=== PATIENT | male | born 1970 | race Caucasian/White ===

== ENCOUNTER 2019-01-31 10:37 | Outpatient (CLI) | payer MEDICARE ==
[~2019-01-31] VITALS: Ht 172.7 cm; Wt 111.4 kg
--- NOTE | ~2019-01-31 | HEMODYNAMI ---
PATIENT:ALBERTO ALLAN MEDICAL RECORD: [id number] : 72 LOCATION:[facility] ADMISSION DATE: 01/31/19 Generatedon:01/31/201913:25 Patient name: ALBERTO ALLAN Patient #: [id number] SSN: DO B: 1970 Date of study: 01/31/2019 Page: Of Hemodynamic Procedure Report Patient Data Patient Demographics Procedure consent was obtained First Name: ALBERTO Gender: Male Last Name: JERRELL : 1970 Middle Initial: R Age: 48 year(s) Patient #: [id number] Race: Additional ID: [id number] Contact details Address: [address] [place] [address] [place]: [place] City: [place] Zip code: [address] Past Medical History Allergies: No known allergies Admission Admission Data Admission Date: 01/31/2019 Admission Time: 10:37 Procedure Procedure Types Cath Procedure Diagnostic Procedure C LH w/Coronaries PCI Procedure Coronary Stent Coronary Stent Initial Procedure Description Procedure Date Procedure Date: 01/31/2019 Procedure Start Time: 12:58 Procedure End Time: 13:24 Procedure Staff Name Function Rios Appiah MD Performing Physician Shira López RN Paint Spraying Machine Operator Helper Graham Santo RN Paint Spraying Machine Operator Helper Marily Oliva RT Scrub Tal Valles RT Monitor Procedure Data Cath Procedure Fluoroscopy Diagnostic fluoroscopy Total fluoroscopy Time: 8.1 time: 8.1 min min Diagnostic fluoroscopy Total fluoroscopy dose: dose: 1311 mGy 1311 mGy Contrast Material Contrast Material Type Amount (ml) Isovue 300 122 Entry Location Entry Primary Successful Side Size Upsize Upsize Entry Closure Adler ccessful Closure Location (Fr) 1 (Fr) 2 (Fr) Remarks Device Remarks Radial Right 6 Fr Mechanical artery Short Compression Procedure Complications No complications Procedure Medications Medication Administration Route Dosage 0.9% NaCl I.V. 100 ml/hr Oxygen etCO2 Nasal cannula 2 l/min Lidocaine 2% added to field 20 Heparin Flush Bag added to field 2 bags (1000units/500ml NS) Radial Cocktail added to field 1 syringe (Verapomil 2mg/Nitro 400mcg/Heparin 1500units) Versed I.V. 2 mg Fentanyl I.V. 50 mcg Fentanyl I.V. 50 mcg Heparin Bolus I.V. 5000 units Integrilin (Bolus I.V. 10.2 ml 2mg/ml) Versed I.V. 2 mg Plavix P.O. 600 mg Hemodynamics Rest Heart Rate: 79 (bpm) Pressure Samples Time Site Value (mmHg) Purpose Heart Use Rate(bpm) 13:01 LV 76/9,76 EDP 85 13:02 AO 93/72(82) Pullback 82 13:02 LV 90/-4,7 Pullback 82 Gradients Valve Time Site 1 Site 2 Mean SEP/DFP Peak To Heart Use (mmHg) (sec/min) Peak Rate (mmHg) (bpm) Aortic 13:02 LV AO 0 6 0 82 90/-4,7 93/72(82) Calculations Valve P-P Mean Valve Index Valve Source Name Gradient Area Flow (cm2) Aortic 0 0 0 0 Snapshots Pre Cath Intra NCS Post Cath Vital Signs Time Heart Resp SPO2 etCO2 NIBP (mmHg) Rhythm Pain Sedation Rate (ipm) (%) (mmHg) Status Level (bpm) 12:48:31 77 17 100 22.5 126/93(103) NSR 0 (11) 10(A) , No pain 12:52:49 76 18 99 36.8 127/92(103) NSR 0 (11) 10(A) , No pain 12:57:07 79 17 98 28.5 110/89(96) NSR 0 (11) 10(A) , No pain 13:01:25 80 17 99 31.5 122/68(106) NSR 0 (11) 10(A) , No pain 13:05:42 80 16 98 40.5 114/73(85) NSR 0 (11) 10(A) , No pain 13:09:55 75 13 98 43.5 114/66(85) NSR 0 (11) 10(A) , No pain 13:14:13 76 13 97 21.7 120/70(84) NSR 0 (11) 9(A) , No pain 13:18:29 72 19 100 35.2 123/87(107) NSR 0 (11) 10(A) , No pain 13:22:46 69 22 99 23.2 132/91(109) NSR 0 (11) 10(A) , No pain Medications Time Medication Route Dose Verified Delivered Reason Not es Effectiveness by by 12:47:35 0.9% NaCl I.V. 100 Rios Shira used for ml/hr [place] Rene procedure MD CHILEL 12:47:43 Oxygen etCO2 2 l/min Iros Shira used for Nasal [place] Rene procedure cannula MD CHILEL 12:48:39 Lidocaine 2% added 20ml Rios Nation for local to vial [facility] anesthetic field MD SYKES 12:48:43 Heparin Flush added 2 bags Rios Rios used for Bag to [facility] procedure (1000units/500ml field MD SYKES NS) 12:53:11 Versed I.V. 2 mg Rios Shira for sedation St Shiva López MD, RN 12:53:26 Fentanyl I.V. 50 mcg Rios Shira for sedation St Shiva López MD, RN 12:54:07 Radial Cocktail added 1 Rios Rios used for (Verapomil to syringe [facility] procedure 2mg/Nitro field MD SYKES 400mcg/Heparin 1500units) 12:59:39 Fentanyl I.V. 50 mcg Rios Shira for sedation St Shiva López MD, RN 13:08:39 Heparin Bolus I.V. 5000 Rios Shira for julisa ified units [facility] anticoagulation with Dr. SYKES RN [facility] 13:09:56 Integrilin I.V. 10.2 ml Rios Shira for was lorena (Bolus 2mg/ml) St Shiva López antiplatelet 9.8mL MD CHILEL therapy 13:11:23 Versed I.V. 2 mg Rios Shira for sedation St Shiva López MD, RN 13:14:16 Plavix P.O. 600 [address] for St Shiva López antiplatelet MD CHILEL therapy Procedure Log Time Note 12:34:09 Graham Santo RN sent for patient. Start room use. 12:34:30 Time tracking: Regular hours (M-F 7:00 - 5:00) 12:34:34 Plan of Care:Hemodynamics will remain stable., Cardiac rhythm will remain stable., Comfort level will be maintained., Respiratory function will remain adequate., Patient/ family verbilizes understanding of procedure., Procedure tolerated without complication., Recovers from procedure without complications.. 12:41:13 Patient received from Pre/Post Procedure Room to CCL 1 Alert and oriented. Tansferred to table in Supine position. 12:41:14 Warm blankets applied, and mariano hugger turned on for patient comfort. 12:41:15 Correct patient and procedure confirmed by team. 12:41:16 Signed procedure consent form obtained from patient. 12:41:17 ECG and BP/O2 sat monitors applied to patient. 12:41:18 Full Disclosure recording started 12:47:19 Vital chart was started 12:47:35 0.9% NaCl 100 ml/hr I.V. was administered by Shira López RN; used for procedure; 12:47:43 Oxygen 2 l/min etCO2 Nasal cannula was administered by Shira López RN; used for procedure; 12:48:26 Baseline sample Acquired. 12:48:39 Lidocaine 2% 20ml vial added to field was administered by Rios Appiah MD; for local anesthetic; 12:48:43 Heparin Flush Bag (1000units/500ml NS) 2 bags added to field was administered by Rios Appiah MD; used for procedure; 12:50:39 Rhythm: sinus rhythm 12:50:53 H&P Date Dictated: 01/17/2019 Within 30 days and on chart., H&P Addendum completed by physician on day of procedure. (MUST COMPLETE FOR ALL OUTPATIENTS). 12:50:55 Pre-procedure instructions explained to patient. 12:50:55 Pre-op teaching completed and patient verbalized understanding. 12:50:57 Family in waiting room. 12:50:59 Patient NPO since Midnight. 12:51:05 Patient allergic to No known allergies 12:51:08 Is the patient allergic to Iodine/contrast media? No. 12:51:13 Is patient on blood thinner?No 12:51:14 Patient diabetic? Yes. 12:51:16 If diabetic: On Metformin? Yes 12:51:20 If on Metformin: Last Dose? 01/30/2019 12:51:24 ----Pre-sedation anethsthesia assessment.---- 12:51:26 Previous problem with sedation/anesthesia? No ? 12:51:28 Snore? Yes 12:51:32 Sleep apnea? No 12:51:34 Deviated septum? No 12:51:35 Opens mouth fully? Yes 12:51:36 Sticks out tongue? Yes 12:51:39 Airway obstruction? No ? 12:51:41 Dentures? No ? 12:51:45 Pre procedure: right dorsailis pedis pulse 2+ Normal; easily identifiable; not easily obliterated 12:51:48 Modified Galo's test Ulnar < 7 seconds 12:51:51 Patient pain scale 0/10 ?. 12:52:01 IV patent on arrival in left hand with 0.9% NaCl at 10ml/hr. 12:52:07 Lab results completed and on chart. 12:52:11 Right Radial & Right Groin area was prepped with chlora-prep and draped in sterile fashion 12:52:12 Alarms reviewed by R. N. 12:52:13 Sharps counted by scrub and verified by R.N. 12:52:14 Physician arrived 12:52:21 --------ALL STOP TIME OUT------ 12:52:21 Final Timeout: patient, procedure, and site verified with staff and physician. All members of the team are in agreement. 12:52:23 Right Radial & Right Groin site verified by team. 12:52:38 Maximum allowable Isovue 300 dose ?ml. Physician notified. (300ml for normal creatinines. For patients with creatinine of 1.7 or higher multiply weight(kg) x 5 divided by creatinine.) 12:53:04 Diagnostic Cath status Elective 12:53:11 Versed 2 mg I.V. was administered by Shira López RN; for sedation; 12:53:12 Fire Safety Assessment: A--An alcohol-based skin anteseptic being used preoperatively., C--Open oxygen or nitrous oxide is being used., D--An ESU, laser, or fiber-optic light is being used. 12:53:16 Physical assessment completed. ASA score P 2 - A patient with mild systemic disease as per Rios Appiah MD. 12:53:19 Sedation plan: IV Moderate Sedation Medication:Versed, Fentanyl 12:53:26 Fentanyl 50 mcg I.V. was administered by Shira López RN; for sedation; 12:53:59 ACIST Syringe (36439) opened to sterile field. 12:54:07 Radial Cocktail (Verapomil 2mg/Nitro 400mcg/Heparin 1500units) 1 syringe added to field was administered by Rios Appiah MD; used for procedure; 12:58:35 Use device set Radial Dx or PCI 12:58:36 ACIST Syringe (26728) opened to sterile field. 12:58:36 Medline Cath Pack ([id number]) opened to sterile field. 12:58:37 Bag Decanter (2002S) opened to sterile field. 12:58:37 DIAGNOSTIC WIRE .035 260cm J wire (622886) opened to sterile field. 12:58:38 ACIST Hand Control (83028) opened to sterile field. 12:58:38 ACIST Manifold (21420) opened to sterile field. 12:58:39 Tegaderm 4 x 4 (1626W) opened to sterile field. 12:58:39 MBrace Wrist Support ([id number]) opened to sterile field. 12:58:41 TR BAND Large (ENC39OEZ) opened to sterile field. 12:58:43 SHEATH 6FR Slender (80-1060) opened to sterile field. 12:58:46 Procedure started. 12:58:56 Local anesthetic to right radial artery with Lidocaine 2% by Rios Appiah MD.INITIAL ACCESS ONLY 12:59:39 Fentanyl 50 mcg I.V. was administered by Shira López RN; for sedation; 13:00:40 A 6 Fr Short sheath was inserted into the Right Radial artery 13:01:48 LV angiography performed. 13:01:50 LV gram done using WARD 13:01:52 LV hemodynamics recorded. 13:02:07 EF : 55 % 13:02:28 LCA angiography performed. 13:03:44 RCA angiography performed. 13:04:58 Catheter removed. 13:05:43 INFLATOR Merit BasixCompak (JO2056) opened to sterile field. 13:06:04 WHISPER 300cm guide wire ([id number]) opened to sterile field. 13:06:30 GUIDE 6FR EBU 3.5 catheter ([id number]) opened to sterile field. 13:08:03 6 Fr EBU 3.5 guide catheter was inserted over the wire 13:08:14 WHISPER wire advanced. 13:08:39 Heparin Bolus 5000 units I.V. was administered by Shira López RN; for anticoagulation; verified with Dr. [place] 13:09:56 Integrilin (Bolus 2mg/ml) 10.2 ml I.V. was administered by Shira López RN; for antiplatelet therapy; wasted 9.8mL 13:11:23 Versed 2 mg I.V. was administered by Shira López RN; for sedation; 13:13:11 Inflate balloon Inflation number: 1 A EMERGE OTW 3.0 x 15 balloon ([id number]) was prepped and advanced across the Mid LAD, then inflated to 10 ENZO for 0:09 (min:sec). 13:13:30 Inflation number: 2 The EMERGE OTW 3.0 x 15 balloon ([id number]) was reinflated across the Mid LAD, to 12 ENZO for 0:17 (min:sec). 13:13:48 Inflation number: 3 The EMERGE OTW 3.0 x 15 balloon ([id number]) was reinflated across the Mid LAD, to 10 ENZO for 0:11 (min:sec). 13:14:16 Plavix 600 mg P.O. was administered by Shira López RN; for antiplatelet therapy; 13:14:34 Inflation number: 4 The EMERGE OTW 3.0 x 15 balloon ([id number]) was reinflated across the Mid LAD, to 10 ENZO for 0:10 (min:sec). 13:15:09 Inflation number: 5 The EMERGE OTW 3.0 x 15 balloon ([id number]) was reinflated across the Mid LAD, to 14 ENZO for 0:15 (min:sec). 13:15:31 Inflation number: 6 The EMERGE OTW 3.0 x 15 balloon ([id number]) was reinflated across the Mid LAD, to 14 ENZO for 0:20 (min:sec). 13:18:09 Balloon removed over the wire. 13:20:52 Place stent Inflation Number: 7 A INTEGRITY OTW 3.5 X 30 stent ([id number]) was prepped and advanced across the Mid LAD. The stent was deployed at 16 ENZO for 0:37 (min:sec). 13:21:25 Stent catheter was removed intact over wire. 13:21:26 Wire removed. 13:21:26 Guide catheter removed. 13:21:35 Sheath removed intact; hemostasis achieved with Mechanical Compression to the Right Radial artery. 13:21:37 Procedure ended.(Physican Out) 13:21:38 TR band inflated with 10cc of air. 13:22:04 Fluoroscopy time 08.10 minutes. 13:22:10 Flurop Dose total: 1311 13:22:10 Fluoroscopy dose: 1311 mGy 13:22:27 Contrast amount:Isovue 300 122ml. 13:22:29 Sharps counted by scrub and verified by R.N. 13:22:30 Insertion/operative site no bleeding no hematoma. 13:22:34 Post-op/insertion site Right Femoral artery dressed using a 4 x 4 and Tegaderm. 13:22:39 Post-op/insertion site Right Radial artery dressed using a 4 x 4 and Tegaderm. 13:22:43 Post right radial artery:stable 13:22:45 Post Procedure Pulses reassessed and unchanged 13:22:53 Post procedure rhythm: unchanged. 13:22:55 Post procedure instruction explained to patient.Patient verbalizes understanding. 13:22:56 Procedure and supply charges have been captured, reviewed, submitted and are correct. 13:23:04 Procedure type changed to Cath procedure, Diagnostic procedure, LHC, LHC w/Coronaries, PCI procedure, Coronary Stent, Coronary Stent Initial 13:23:18 Procedure Complication : No complications 13:23:34 Vital chart was stopped 13:23:35 See physician's report for complete and final results. 13:24:40 Report given to Pre/Post Procedure Room. 13:24:44 Patient transfered to Pre/Post Procedure Room with Stretcher. 13:24:46 Procedure ended. 13:24:46 Full Disclosure recording stopped 13:24:49 End room use (Document Last) Intervention Summary Intervention Notes Time ActionType Lesion and Equipment Action# Pressure Duration Attributes Used 13:13:11 Inflate Mid LAD EMERGE OTW 1 10 00:09 balloon 3.0 x 15 balloon ([id number]) 13:13:30 Reinflate Mid LAD EMERGE OTW 2 12 00:17 balloon 3.0 x 15 balloon ([id number]) 13:13:48 Reinflate Mid LAD EMERGE OTW 3 10 00:11 balloon 3.0 x 15 balloon ([id number]) 13:14:34 Reinflate Mid LAD EMERGE OTW 4 10 00:10 balloon 3.0 x 15 balloon ([id number]) 13:15:09 Reinflate Mid LAD EMERGE OTW 5 14 00:15 balloon 3.0 x 15 balloon ([id number]) 13:15:31 Reinflate Mid LAD EMERGE OTW 6 14 00:20 balloon 3.0 x 15 balloon ([id number]) 13:20:52 Place stent Mid LAD INTEGRITY 7 16 00:37 OTW 3.5 X 30 stent ([id number]) Device Usage Item Name Manufacture Quantity Catalog Number Hospital Part Current Min imal Lot# / Charge Number Stock Stock Serial# Code ACIST Acist 2 00536 452380 532408 823838 20 Syringe Medical (78436) Systems Inc Medline Cath Medline 1 [id number] 801872 66368 278181 5 Pack ([id number]) Bag Decanter Microtek 1 2001S 760033 28835 945965 5 () Medical Inc. DIAGNOSTIC St [place] 1 793895 151188 087872 611628 30 WIRE .035 260cm J wire (153308) ACIST Hand Acist 1 21452 122095 287706 127797 5 Control Medical (12526) Systems Inc ACIST Acist 1 49185 192994 186249 076656 5 Manifold Medical (33651) Systems Inc Tegaderm 4 x 3M 1 1626W 787963 380431 656551 5 4 (1626W) MBrace Wrist Advanced 1 140-0250-00 244233 38476 231771 5 Support Vascular (589701799) Dynamics TR BAND Terumo 1 KGU29-NWI 925657 458104 161610 40 Large (GID96GQS) SHEATH 6FR Terumo 1 [id number] 566519 272256 569185 5 Slender (80-1060) INFLATOR Merit 1 YM9039 605811 660297 765453 15 Guojia New Materials Medical BasixCompak (EC9483) WHISPER [place] 1 [id number] 202919 059799 373508 5 300cm guide Vascular wire (0405537NM) GUIDE 6FR Medtronic 1 [id number] 534931 94191 184790 3 EBU 3.5 catheter (MA5BRP70) EMERGE OTW [place] 1 [id number] 515610 346663 271973 5 [id number] 3.0 x 15 Scientific balloon ([id number]) INTEGRITY Medtronic 1 [id number] 219920 499613 090540 2 [id number] OTW 3.5 X 30 stent ([id number]) Signature Audit [place] Time Signature Unsigned Intra-Procedure 01/31/2019 Tal AGUILAR(R) 1:25:49 PM Signatures Monitor : Tal AGUILAR Signature : Date : Time : [place] [id number] [place] [address]
[~2019-01-31 10:37] MED LIST: BAYER CHEWABLE81 MG PO; CLONAZEPAM2 MG/TAB PO; EFFEXOR75 MG PO; FISH OIL 1,0001 CA1 PO; KLOR-CON 1010 MEQ PO; LASIX40 MG PO; NIASPAN500 MG PO; NITROSTAT0.4 MG SL; PLAVIX75 MG PO; PRAVACHOL40 MG PO; REMERON15 MG PO; THORAZINE10 MG PO; TOPROL XL25 MG PO; TRAZODONE HCL300 MG PO; WELLBUTRIN SR150 MG PO; ZESTRIL10 MG PO
[2019-01-31] MEDS ORDERED: BAYER ASPIRIN325 MG PO (11:07)
[2019-01-31] MEDS ORDERED: KLONOPIN1 MG PO (11:08)
[2019-01-31] MEDS ORDERED: REMERON30 MG PO (11:09)
[2019-01-31] MEDS ORDERED: TRAZODONE HCL300 MG PO (11:11)
[2019-01-31] MEDS ORDERED: FUROSEMIDE40 MG PO (11:11)
[2019-01-31] MEDS ORDERED: LIPITOR40 MG PO (11:12)
[2019-01-31] MEDS ORDERED: KLOR-CON 1010 MEQ PO (11:12)
[2019-01-31] MEDS ORDERED: METFORMIN HCL500 M1 PO (11:15)
[2019-01-31] MEDS ORDERED: GLUCOPHAGE500 MG PO (11:16)
[2019-01-31 11:17] VITALS: BP 118/81; Ht 172.7 cm; Wt 111.4 kg
[2019-01-31] MEDS ORDERED: PROTONIX40 MG PO (11:17)
[2019-01-31 11:41] LABS: CALC OSMOLALITY 271 mosm/kg (275-300); CALCIUM 9.1 mg/dL (8.5-10.1); CARBON DIOXIDE 28.8 mmol/L (21.0-32.0); CHLORIDE - SERUM 97 mmol/L (98-107); POTASSIUM - SERUM 3.7 mmol/L (3.5-5.1); SODIUM 133 mmol/L (136-145); UREA NITROGEN 10 mg/dL (7-18); eGFR NON AFRICAN AMERICAN 85 mL/min (90-120)
[2019-01-31 11:42] LABS: GLUCOSE 226 mg/dL (74-106)
[2019-01-31 11:50] LABS: BASOPHILS 0.3 % (0-2); EOSINOPHILS 4.2 % (0-7); HEMATOCRIT 48.9 % (42.0-54.0); HEMOGLOBIN 16.6 g/dL (13.5-17.5); LYMPHOCYTES 42.7 % (15-50); MCH 29.4 pg (26.0-34.0); MCHC 33.9 g/dL (31.0-37.0); MCV 86.7 fL (80.0-100.0); MEAN PLATELET VOLUME 11.3 fL (7.4-10.4); MONOCYTES 8.2 % (2-11); NEUTROPHILS 43.6 % (40-80); RBC 5.64 10x6/uL (4.20-6.10); RDW 15.7 % (11.5-14.5); WBC 6.2 10x3/uL (4.8-10.8)
[2019-01-31 11:53] LABS: PLATELET COUNT 222 10x3/uL (130-400)
[2019-01-31] MEDS ORDERED: PLAVIX75 MG (13:31)
--- NOTE | 2019-01-31 13:35 | NUR ---
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 TR BAND AND IMMOBILIZER TO R WRIST, DRESSING CDI NO BLEEDING OR HEMATOMA NOTED, CAP REFILL BRISK. HR NSR RATE 73, BP 146/99, O2 PLACE AT 2L/NC, O2 SAT 98. DR ARAGON IN AND SPOKE WITH PT AND FAMILY REGARDING PLAN OF CARE AND PROCEDURE RESULTS. CALL LIGHT IN REACH, IV PATENT INFUSING VIA ORDERS.
--- NOTE | 2019-01-31 13:57 | NUR ---
PT DOING WELL, TR BAND IN PLACE NO BLEEDING OR SWELLING NOTED. PT VOIDED 1200CC IN URINAL OF CLEAR YELLOW URINE. PT DENIES PAIN OR NEEDS AT THIS TIME. VSS. CALL LIGHT IN REACH
--- NOTE | 2019-01-31 14:25 | NUR ---
TR BAND IN PLACE, DRESSING REMAINS CDI NO BLEEDING OR SWELLING NOTED. HOB ELEVATED, SANDWICH SERVED. VSS. 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 DR ARAGON AWARE. CALL LIGHT IN REACH, DENIES OTHER NEEDS.
--- NOTE | 2019-01-31 14:55 | NUR ---
PT RESTING QUIETLY W EYES CLOSED. R WRIST DRESSING REMAINS CDI NO BLEEDING OR SWELLING NOTED. CAP REFILL BRISK. VSS. CALL LIGHT IN REACH
--- NOTE | 2019-01-31 15:25 | NUR ---
PT SLEEPING W EYES CLOSED, R WRIST DRESSING CDI NO BLEEDING OR SWELLING NOTED. VSS. CALL LIGHT IN REACH
--- NOTE | 2019-01-31 16:05 | NUR ---
PT RESTING COMFORTABLY, TR BAND IN PLACE, NO BLEEDING OR SWELLING NOTED AROUND SITE. PT DENIES PAIN OR NEEDS. CALL LIGHT IN REACH.
--- NOTE | 2019-01-31 16:32 | NUR ---
4 CC AIR REMOVED FROM TR BAND W/O BLEEDING OR SWELLING NOTED. COLA GIVEN PER REQUEST. BP UP SLIGHTLY, 155/100, PT STATES TOOK HIS BP MEDS THIS AM AND IT IS ALWAYS THIS HIGH. PT DENIES PAIN OR NEEDS AT THIS TIME. CALL LIGHT IN REACH
--- NOTE | 2019-01-31 17:02 | NUR ---
4 ADD'L CC OF AIR REMOVED FROM TR BAND, NO BLEEDING OR SWELLING NOTED. BP BETTER, 144/90. PT DENIES PAIN OR NEEDS.
--- NOTE | 2019-01-31 17:10 | NUR ---
DISCHARGE INSTRUCTIONS REVIEWED W PT AND SON, BOTH VERBALIZED UNDERSTANDING. REVIEWED PRE PROCEDURE INSTRUCTIONS FOR RETURN VISIT NEXT WEEK. INSTRUCTED PT ON IMPORTANCE OF TAKING PLAVIX EVERY DAY STARTING TOMORROW.
--- NOTE | 2019-01-31 17:20 | NUR ---
IV REMOVED W CATH INTACT, MONITORS AND O2 REMOVED. PT UP TO DRESS FOR DISCHARGE
--- NOTE | 2019-01-31 17:30 | NUR ---
TR BAND AND REMAINING AIR REMOVED W/O BLEEDING OR SWELLING. 2X2 AND TEGADERM DRESSING APPLIED. PT DISCHARGED VIA WC TO PRIVATE VEHICLE WITH ALL BELONGINGS.
--- NOTE | 2019-02-01 13:33 | OP ---
PATIENT NAME: ALBERTO ALLAN MEDICAL RECORD: [id number] :72 LOCATION:[facility] ADMISSION DATE: SURGEON: EAMON ARAGON MD DATE OF OPERATION: 01/31/2019 PROCEDURE: Left heart catheterization, selective coronary angiography, right radial approach. CATHETERS: Radial sheath, Carey catheter. The procedure was well tolerated. The patient returned to the goldstein. Sheath was removed. TR band was placed. FINDINGS: Left ventriculography in 30-degree WARD view: Normal wall motion and normal systolic function. CORONARY ANATOMY: LEFT MAIN: Left main is free of disease. LAD: Has severe diffuse in-stent restenosis, previously placed stents. CIRCUMFLEX: Left codominant system, free of disease. RIGHT CORONARY ARTERY: Totally occluded with a ghost filling collaterals from left to right, really appears as a small vessel. RAMUS: There is a true ramus branch about 80% stenosis. IMPRESSION: Intervention left anterior descending momentarily, ramus at a later date. DESCRIPTION OF PROCEDURE: A EBU 3.5 guiding catheter has provided good guide catheter support followed by 300-cm Whisper wire. Pre-deployment balloon used was a 3.5 x 15-mm Montour balloon up to 14 atmospheres. Next, stent deployed was a 3.5 x 30 Integrity drug-eluting stent up to 14 atmospheres. Final angiography shows excellent position of an 80% stenosis to no significant residual. SHAR flow was 3 throughout the procedure. Integrilin was used in the case. Sheath closed with TR band as stated above. TRANSINT:[id number] Voice Confirmation ID: [id number] DOCUMENT ID: [id number] EAMON ARAGON MD at 1333 CC: [id number] DICTATION DATE: 01/31/19 1330 BREAKER UNIT ASSEMBLER: 01/31/19 1506 DEP CLI 01/31/19 [place] [id number] [place] [id number]
== END 2019-01-31 17:30 | disposition home or self-care (01) ==
LOC: D.CATH 10:37
PROVIDERS: ATTEND Internal Medicine Interventional Cardiology
DX: I25.110 Atherosclerotic heart disease of native coronary artery with unstable angina pectoris (principal)
CPT/HCPCS: C9600; 93458

== ENCOUNTER 2019-02-08 10:39 | Outpatient (CLI) | payer MEDICARE, OTHER ==
--- NOTE | ~2019-02-08 | HEMODYNAMI ---
PATIENT:ALBERTO ALLAN MEDICAL RECORD: [id number] : 72 LOCATION:[facility] ADMISSION DATE: 02/08/19 Generatedon:02/08/201913:59 Patient name: ALBERTO ALLAN Patient #: [id number] SSN: DO B: 1970 Date of study: 02/08/2019 Page: Of Hemodynamic Procedure Report Patient Data Patient Demographics Procedure consent was obtained First Name: ALBERTO Gender: Male Last Name: JERRELL : 1970 Middle Initial: R Age: 48 year(s) Patient #: [id number] Race: Additional ID: [id number] Contact details Address: [address] [place] [address] [address] State: [place] City: [facility] Zip code: [address] Past Medical History Allergies: No known allergies Admission Admission Data Admission Date: 02/08/2019 Admission Time: 10:39 Procedure Procedure Types Cath Procedure PCI Procedure Coronary Stent Coronary Stent Initial Procedure Description Procedure Date Procedure Date: 02/08/2019 Procedure Start Time: 13:40 Procedure End Time: 13:58 Procedure Staff Name Function Rios Appiah MD Performing Physician Tal Valles RT Monitor Ekta Glez RT Scrub Shira López RN Nurse Procedure Data Cath Procedure Fluoroscopy Diagnostic fluoroscopy Total fluoroscopy Time: 6.1 time: 6.1 min min Diagnostic fluoroscopy Total fluoroscopy dose: 691 dose: 691 mGy mGy Contrast Material Contrast Material Type Amount (ml) Isovue 300 57 Entry Location Entry Primary Successful Side Size Upsize Upsize Entry Closure Succes sful Closure Location (Fr) 1 (Fr) 2 (Fr) Remarks Device Remarks Femoral Right 6 Fr Exoseal artery Short Procedure Complications No complications Procedure Medications Medication Administration Route Dosage 0.9% NaCl I.V. 100 ml/hr Oxygen etCO2 Nasal cannula 2 l/min Lidocaine 2% added to field 20 Heparin Flush Bag added to field 2 bags (1000units/500ml NS) Versed I.V. 2 mg Fentanyl I.V. 50 mcg Versed I.V. 2 mg Fentanyl I.V. 50 mcg Heparin Bolus I.V. 5000 units Plavix P.O. 75 mg Fentanyl I.V. 50 mcg Hemodynamics Rest Heart Rate: 75 (bpm) Snapshots Pre Cath Intra NCS Post Cath Vital Signs Time Heart Resp SPO2 etCO2 NIBP (mmHg) Rhythm Pain Sedation Rate (ipm) (%) (mmHg) Status Level (bpm) 13:28:11 73 20 98 38.2 162/105(126) NSR 0 (11) 10(A) , No pain 13:32:52 71 17 99 35.2 145/107(129) NSR 0 (11) 10(A) , No pain 13:37:24 69 16 98 40.5 154/99(120) NSR 0 (11) 10(A) , No pain 13:42:00 75 15 95 37.4 153/99(122) NSR 0 (11) 10(A) , No pain 13:46:35 76 14 100 20.2 166/96(115) NSR 0 (11) 9(A) , No pain 13:51:09 77 14 100 39.8 162/105(125) NSR 0 (11) 9(A) , No pain 13:55:50 78 14 100 31.4 178/108(143) NSR 0 (11) 10(A) , No pain Medications Time Medication Route Dose Verified Delivered Reason Notes Effectiveness by by 13:26:45 0.9% NaCl I.V. 100 Rios Silva used for ml/hr [facility] Shiva L[facility]pez procedure MD CHILEL 13:26:51 Oxygen etCO2 2 Rios Silva used for Nasal l/min [facility] L[facility] procedure cannula MD CHILEL 13:27:00 Lidocaine 2% added 20ml Rios Nation for local to vial [facility] anesthetic field MD SYKES 13:27:13 Heparin Flush added 2 Rios Nation used for Bag to bags [facility] procedure (1000units/500ml field MD SYKES NS) 13:27:14 Plavix P.O. 75 mg Rios Silva for BijalShiva López antiplatelet RN therapy 13:35:39 Versed I.V. 2 mg Rios Skinnera for sedation [facility] Shiva López MD, RN 13:35:46 Fentanyl I.V. 50 Rios Skinnera for sedation mcg [facility] Shiva López MD RN 13:40:24 Versed I.V. 2 mg Rios Silva for sedation [facility] Shiva López MD RN 13:40:31 Fentanyl I.V. 50 Rios Silva for sedation mcg St Shiva López MD RN 13:40:43 Heparin Bolus I.V. 5000 Rios Silva for verif ied units [facility] Shiva López anticoagulation with Dr. MD GETACHEW [place] 13:45:42 Fentanyl I.V. 50 Rios Silva for sedation [facility] Shiva López MD weights and measures sealer Log Time Note 13:15:34 Signed procedure consent form obtained from patient. 13:15:35 Diagnostic Cath status Elective 13:15:36 Time tracking: Regular hours (M-F 7:00 - 5:00) 13:15:42 Plan of Care:Hemodynamics will remain stable., Cardiac rhythm will remain stable., Comfort level will be maintained., Respiratory function will remain adequate., Patient/ family verbilizes understanding of procedure., Procedure tolerated without complication., Recovers from procedure without complications.. 13:15:45 Tal Valles RT(R) sent for patient. Start room use. 13:19:02 Patient received from Pre/Post Procedure Room to CCL 1 Alert and oriented. Tansferred to table in Supine position. 13:19:03 Warm blankets applied, and mariano hugger turned on for patient comfort. 13:19:03 Correct patient and procedure confirmed by team. 13:19:04 ECG and BP/O2 sat monitors applied to patient. 13:26:36 Vital chart was started 13:26:45 0.9% NaCl 100 ml/hr I.V. was administered by Shira López RN; used for procedure; 13::51 Oxygen 2 l/min etCO2 Nasal cannula was administered by Shira López RN; used for procedure; 13:27:00 Lidocaine 2% 20ml vial added to field was administered by Rios Appiah MD; for local anesthetic; 13:27:13 Heparin Flush Bag (1000units/500ml NS) 2 bags added to field was administered by Rios Appiah MD; used for procedure; 13:27:14 Plavix 75 mg P.O. was administered by Shira López RN; for antiplatelet therapy; 13:31:59 Baseline sample Acquired. 13:32:03 Rhythm: sinus rhythm 13:32:04 Full Disclosure recording started 13:33:18 H&P Date Dictated: 02/08/2019 Within 30 days and on chart., H&P Addendum completed by physician on day of procedure. (MUST COMPLETE FOR ALL OUTPATIENTS). 13:33:19 Pre-procedure instructions explained to patient. 13:33:19 Pre-op teaching completed and patient verbalized understanding. 13:33:21 Family unavailable. 13:33:22 Patient NPO since Midnight. 13:33:29 Patient allergic to No known allergies 13:33:31 Is the patient allergic to Iodine/contrast media? No. 13:33:35 Is patient on blood thinner?Yes 13:33:38 ACC The patient was administered the following blood thiners within the last 24 hours: ACCPlavix 13:34:28 Patient diabetic? Yes. 13:34:30 If diabetic: On Metformin? Yes 13:34:38 If on Metformin: Last Dose? 02/07/2019 13:34:39 ----Pre-sedation anethsthesia assessment.---- 13:34:41 Previous problem with sedation/anesthesia? No ? 13:34:43 Snore? No 13:34:45 Sleep apnea? No 13:34:46 Deviated septum? No 13:34:47 Opens mouth fully? Yes 13:34:49 Sticks out tongue? Yes 13:34:52 Airway obstruction? No ? 13:34:53 Dentures? No ? 13:34:56 Pre procedure: right dorsailis pedis pulse 2+ Normal; easily identifiable; not easily obliterated 13:34:59 Patient pain scale 0/10 ?. 13:35:04 IV patent on arrival in left antecubital with 0.9% NaCl at [facility]. 13:35:08 Right groin area was prepped with chlora-prep and draped in sterile fashion 13:35:09 Alarms reviewed by R. N. 13:35:09 Sharps counted by scrub and verified by R.N. 13:35:10 Physician arrived 13:35:11 --------ALL STOP TIME OUT------ 13:35:11 Final Timeout: patient, procedure, and site verified with staff and physician. All members of the team are in agreement. 13:35:13 Right groin site verified by team. 13:35:19 Maximum allowable Isovue 300 dose 300ml. Physician notified. (300ml for normal creatinines. For patients with creatinine of 1.7 or higher multiply weight(kg) x 5 divided by creatinine.) 13:35:23 Fire Safety Assessment: A--An alcohol-based skin anteseptic being used preoperatively., C--Open oxygen or nitrous oxide is being used., D--An ESU, laser, or fiber-optic light is being used. 13:35:25 Physical assessment completed. ASA score P 2 - A patient with mild systemic disease as per Rios Appiah MD. 13:35:29 Sedation plan: IV Moderate Sedation Medication:Versed, Fentanyl 13:35:39 Versed 2 mg I.V. was administered by Shira López RN; for sedation; 13:35:46 Fentanyl 50 mcg I.V. was administered by Shira López RN; for sedation; 13:38:58 INFLATOR Merit BasixCompak (EC4013) opened to sterile field. 13:39:00 WHISPER 300cm guide wire ([id number]) opened to sterile field. 13:39:04 SHEATH 6FR [place] (MOH158) opened to sterile field. 13:39:12 ACIST Syringe (58015) opened to sterile field. 13:39:13 Bag Decanter (2002S) opened to sterile field. 13:39:13 Medline Cath Pack ([id number]) opened to sterile field. 13:39:14 DIAGNOSTIC WIRE .035 260cm J wire (564640) opened to sterile field. 13:39:18 Tegaderm 4 x 4 (1626W) opened to sterile field. 13:39:44 GUIDE 6FR JL 4.0 catheter (AR4KS77) opened to sterile field. 13:40:02 Procedure started. 13:40:12 Local anesthetic to right femoral artery with Lidocaine 2% by Rios Appiah MD.INITIAL ACCESS ONLY 13:40:21 A 6 Fr Short sheath was inserted into the Right Femoral artery 13:40:24 Versed 2 mg I.V. was administered by Shira López RN; for sedation; 13:40:30 6 Fr JL 4 guide catheter was inserted over the wire 13:40:31 Fentanyl 50 mcg I.V. was administered by Shira López RN; for sedation; 13:40:34 WHISPER wire advanced. 13:40:43 Heparin Bolus 5000 units I.V. was administered by Shira López RN; for anticoagulation; verified with Dr. [place] 13:43:45 The EUPHORA 2.5 x 15 Balloon ([id number]) was advanced and then removed because of failure to cross lesion 13:43:50 Wire removed. 13:43:57 Guide Catheter removed. unable to get back-up support 13:44:33 6 Fr EBU 3.5 guide catheter was inserted over the wire 13:44:44 GUIDE 6FR EBU 3.5 catheter ([id number]) opened to sterile field. 13:44:51 WHISPER wire advanced. 13:45:42 Fentanyl 50 mcg I.V. was administered by Shira López RN; for sedation; 13:49:35 Inflation number: 1 The EUPHORA 2.5 x 15 Balloon ([id number]) was reinflated across the Ramus, to 10 ENZO for 0:19 (min:sec). 13:50:19 Inflation number: 2 The EUPHORA 2.5 x 15 Balloon ([id number]) was reinflated across the Ramus, to 13 ENZO for 0:29 (min:sec). 13:50:37 Inflation number: 3 The EUPHORA 2.5 x 15 Balloon ([id number]) was reinflated across the Ramus, to 14 ENZO for 0:15 (min:sec). 13:51:06 Inflation number: 4 The EUPHORA 2.5 x 15 Balloon ([id number]) was reinflated across the Ramus, to 10 ENZO for 0:23 (min:sec). 13:51:53 Inflation number: 5 The EUPHORA 2.5 x 15 Balloon ([id number]) was reinflated across the Ramus, to 0 ENZO for 0:23 (min:sec). 13:53:02 Inflation number: 6 The EUPHORA 2.5 x 15 Balloon ([id number]) was reinflated across the Ramus, to 12 ENZO for 0:25 (min:sec). 13:54:51 Inflation number: 12 The EUPHORA 2.5 x 15 Balloon ([id number]) was reinflated across the Ramus, to 0 ENZO for 0:28 (min:sec). 13:54:54 Balloon removed over the wire. 13:56:16 Place stent Inflation Number: 8 A INTEGRITY OTW 2.5 X 12 stent ([id number]) was prepped and advanced across the Ramus. The stent was deployed at 14 ENZO for 0:29 (min:sec). 13:56:39 Stent catheter was removed intact over wire. 13:56:40 Wire removed. 13:56:40 Guide catheter removed. 13:56:47 Contrast amount:Isovue 300 57ml. 13:56:55 Sheath removed intact; hemostasis achieved with Exoseal to the Right Femoral artery. 13:56:57 Procedure ended.(Physican Out) 13:57:04 Fluoroscopy time 06.10 minutes. 13:57:11 Flurop Dose total: 691 13:57:11 Fluoroscopy dose: 691 mGy 13:57:13 Sharps counted by scrub and verified by R.N. 13:57:20 Insertion/operative site no bleeding no hematoma. 13:57:23 Post-op/insertion site Right Femoral artery dressed using a 4 x 4 and Tegaderm. 13:57:34 Post right femoral artery:stable 13:57:36 Post Procedure Pulses reassessed and unchanged 13:57:38 Post procedure: right dorsailis pedis pulse 1+ Palpable, but thready & weak; easily obliterated. 13:57:41 Post procedure rhythm: sinus rhythm 13:57:43 Post procedure instruction explained to patient.Patient verbalizes understanding. 13:57:44 Procedure and supply charges have been captured, reviewed, submitted and are correct. 13:58:01 EXOSEAL 6Fr (EX600) opened to sterile field. 13:58:24 Procedure Complication : No complications 13:58:26 Vital chart was stopped 13:58:27 See physician's report for complete and final results. 13:58:28 Report given to Pre/Post Procedure Room. 13:58:31 Patient transfered to Pre/Post Procedure Room with Stretcher. 13:58:33 Procedure ended. 13:58:33 Full Disclosure recording stopped 13:58:36 End room use (Document Last) Intervention Summary Intervention Notes Time ActionType Lesion and Equipment Action# Pressure Duration Attributes Used 13:43:45 Discard EUPHORA 2.5 Balloon x 15 Balloon ([id number]) 13:49:35 Reinflate Ramus EUPHORA 2.5 1 10 00:19 balloon x 15 Balloon ([id number]) 13:50:19 Reinflate Ramus EUPHORA 2.5 2 13 00:29 balloon x 15 Balloon ([id number]) 13:50:37 Reinflate Ramus EUPHORA 2.5 3 14 00:16 balloon x 15 Balloon ([id number]) 13:51:06 Reinflate Ramus EUPHORA 2.5 4 10 00:23 balloon x 15 Balloon ([id number]) 13:51:53 Reinflate Ramus EUPHORA 2.5 5 0 00:23 balloon x 15 Balloon (ULV2851J) 13:53:02 Reinflate Ramus EUPHORA 2.5 6 12 00:25 balloon x 15 Balloon ([id number]) 13:54:51 Reinflate Ramus EUPHORA 2.5 12 0 00:28 balloon x 15 Balloon ([id number]) 13:56:16 Place stent Ramus INTEGRITY 8 14 00:29 OTW 2.5 X 12 stent ([id number]) Device Usage Item Name Manufacture Quantity Catalog Hospital Part Current Minimal L ot# / Number Charge Number Stock Stock Serial# Code INFLATOR Merit 1 [id number] 706737 181714 987960 15 [facility] Medical BasixCompak (MX0023) WHISPER Fernandes 1 [id number] 858411 548795 550304 5 300cm guide Vascular wire ([id number]) SHEATH 6FR Terumo 1 FWL231 427584 553335 432532 40 [place] (HAV461) ACIST Acist 1 77833 331363 983111 144287 20 Syringe Medical (32173) Systems Inc Bag Microtek 1 2001S 834016 67895 631165 5 Decanter Medical Inc. () Medline Medline 1 [id number] 321368 30830 329393 5 Cath Pack ([id number]) DIAGNOSTIC [facility] [place] 1 142122 775831 402717 531500 30 WIRE .035 260cm J wire (847245) Tegaderm 4 3M 1 1626W 528857 446118 995970 5 x 4 (1626W) GUIDE 6FR Medtronic 1 [id number] 078960 57193 336294 1 JL 4.0 catheter ([id number]) EUPHORA 2.5 Medtronic 1 [id number] 233581 171352 293407 5 2 [id number] x 15 Balloon ([id number]) GUIDE 6FR Medtronic 1 [id number] 390907 99590 939714 3 EBU 3.5 catheter ([id number]) INTEGRITY Medtronic 1 [id number] 579994 120375 238036 3 0 [id number] OTW 2.5 X 12 stent ([id number]) EXOSEAL 6Fr Cardinal 1 EX600 292207 118295 098977 10 (EX600) Health Signature Audit [place] Stage Time Signature Unsigned Intra-Procedure 02/08/2019 Tal AGUILAR(Stefanie) 1:59:39 PM Signatures Monitor : Tal AGUILAR Signature : Date : Time : [facility] [address] [place] [address]
[~2019-02-08 10:39] MED LIST changes: +BAYER ASPIRIN325 MG PO; +FUROSEMIDE40 MG PO; +GLUCOPHAGE500 MG PO; +KLONOPIN1 MG PO; +LIPITOR40 MG PO; +METFORMIN HCL500 M1 PO; +PLAVIX75 MG; +PROTONIX40 MG PO; +REMERON30 MG PO
[2019-02-08 11:06] VITALS: BP 143/83; BMI 36.5
[2019-02-08 11:25] LABS: BASOPHILS 0.6 % (0-2); EOSINOPHILS 4.6 % (0-7); HEMATOCRIT 50.1 % (42.0-54.0); HEMOGLOBIN 16.9 g/dL (13.5-17.5); LYMPHOCYTES 42.6 % (15-50); MCH 29.6 pg (26.0-34.0); MCHC 33.7 g/dL (31.0-37.0); MCV 87.9 fL (80.0-100.0); MEAN PLATELET VOLUME 11.1 fL (7.4-10.4); MONOCYTES 7.2 % (2-11); PLATELET COUNT 193 10x3/uL (130-400); WBC 6.8 10x3/uL (4.8-10.8)
[2019-02-08 11:36] LABS: CALC OSMOLALITY 270 mosm/kg (275-300); CALCIUM 9.3 mg/dL (8.5-10.1); CARBON DIOXIDE 30.1 mmol/L (21.0-32.0); CHLORIDE - SERUM 96 mmol/L (98-107); CREATININE - SERUM 0.9 mg/dL (0.6-1.3); GLUCOSE 173 mg/dL (74-106); POTASSIUM - SERUM 3.7 mmol/L (3.5-5.1); SODIUM 134 mmol/L (136-145); UREA NITROGEN 11 mg/dL (7-18); eGFR NON AFRICAN AMERICAN > 90 mL/min (90-120)
--- NOTE | 2019-02-08 14:15 | NUR ---
RECIEVED TO ROOM VIA STRETCHER FROM HYDROELECTRIC OPERATOR WITH 6 FR EXOSEAL R/GROIN CDI NO BLEEDING OR HEMATOMA NOTED. SITE IS SOFT TO PALPATE WITH R/FOOT WARM. INSTRUCTED PATIENT TO KEEP HEAD FLAT ON PILLOW WITH RLE STRAIGHT
--- NOTE | 2019-02-08 14:32 | NUR ---
6 FR EXOSEAL TO R/GROIN IS CDI WITH NO BLEEDING NOTED. HR 76 BP 130/87 CHEST PAIN IS DENIED
--- NOTE | 2019-02-08 14:43 | NUR ---
6 FR EXOSEAL R/GROIN REMAINS CDI WITH NO DISTRESS TO PATIENT HR 78 BP 140/84 CHEST PAIN IS DENIED
--- NOTE | 2019-02-08 15:15 | NUR ---
PATIENT RESTING QUIETLY WITH VSS 6 FR EXOSEAL R/GROIN IS CDI
--- NOTE | 2019-02-08 15:46 | NUR ---
PATIENT CONTINUES TO REST WITH EYES CLOSED. RESPIRATIONS ARE EVEN AND UNLABORED. 6 FR EXOSEAL R/GROIN REMAINS CDI
--- NOTE | 2019-02-08 16:32 | NUR ---
NO CHANGE IN ASSESSMENT HR 76 WITH NO DISTRESS NOTED.REPOSITIONED TO SITTING WITH HOB UP 30 FOR COMFORT. SANDWICH AND SODA TO BEDSIDE
--- NOTE | 2019-02-08 16:46 | NUR ---
VERBAL AND WRITTEN DISCHARGE GONE OVER WITH PATIENT. 6 FR EXOSEAL TO R/GROIN REMAINS CDI NO BLEEDING OR HEMATOMA NOTED.
--- NOTE | 2019-02-08 16:55 | NUR ---
PIV REMOVED WITH DRESSING APPLIED. PATIENT DENIED CHEST PAIN AND R/GROIN REMAINS CDI PATIENT UP TO GET DRESSED FOR DISCHARGE HOME NO DISTRESS
--- NOTE | 2019-02-08 17:35 | NUR ---
PATIENT TRANSPORTED VIA WHEELCHAIR TO CAR WITH FAMILY DRIVING, ALL BELONGINGS WITH PATIENT.
--- NOTE | 2019-02-09 13:47 | OP ---
PATIENT NAME: ALBERTO ALLAN MEDICAL RECORD: [id number] :72 LOCATION:D[facility] ADMISSION DATE: SURGEON: EAMON ARAGON MD DATE OF OPERATION: 02/08/2019 PTCA AND STENT REPORT DESCRIPTION OF PROCEDURE: After a 6-Irish sheath was placed in right femoral artery, EBU 3.5 guiding catheter provided good guide catheter support followed by 300-cm Whisper wire placed across the tightly occluded, diffuse diseased, and 90% stenosed ramus down this portion of the vessel. Pre-deployment balloon used was 2.5 x 15 mm Cooke balloon. Stent deployed was 2.5 x 12 Integrity up to 14 atmospheres. Final angiography showed excellent resolution of a 90% stenosis with no significant residual. SHAR flow was 3 throughout the procedure. The patient was previously on Plavix. Heparin was used during the case. Sheath was closed with ExoSeal device. TRANSINT:[id number] Voice Confirmation ID: [id number] DOCUMENT ID: [id number] EAMON ARAGON MD at 1347 CC: [id number] DICTATION DATE: 02/08/19 1407 SERVICE ASSOCIATE: 02/08/19 1723 DEP CLI 02/08/19 [facility] [address] [place] [address]
--- NOTE | 2019-02-09 13:47 | HP ---
PATIENT: ALBERTO ALLAN MEDICAL RECORD: [id number] ACCOUNT: [id number] LOCATION:[facility] : 72 ADMISSION DATE: 02/08/19 PCP: VERO GEIGER MD HISTORY AND PHYSICAL EXAMINATION HISTORY: This is a gentleman with history of coronary artery disease, status post intervention. He was seen in the office with angina, found to have multivessel disease, being brought back for intervention to the ramus in a staged fashion after recent intervention to the LAD. PAST MEDICAL HISTORY: Includes; 1. History of dyslipidemia. 2. Hypertension. 3. Coronary artery disease as described above. MEDICATIONS: Include Plavix 75 daily, Wellbutrin 100 daily, trazodone 300 at bedtime, Niaspan 500 daily, atorvastatin 20 daily. PHYSICAL EXAMINATION: GENERAL: Pleasant gentleman, in no acute distress, appears stated age. HEENT: Normocephalic and atraumatic. NECK: No bruits noted. HEART: Regular. II/ systolic ejection murmur. LUNGS: Clear to excursion. ABDOMEN: Soft and nontender. EXTREMITIES: Pulses 2+ with no edema. IMPRESSION: Plan on intervention to the ramus, status post intervention to the LAD previously. TRANSINT:[id number] Voice Confirmation ID: [id number] DOCUMENT ID: [id number] EAMON ARAGON MD at 1347 CC: [id number] DICTATION DATE: 02/08/19 1307 PORCELAIN BUILDUP ASSISTANT: 02/08/19 1422 DEP CLI 02/08/19 [place] [place] [id number] [place] [address]
== END 2019-02-08 17:35 ==
LOC: D.CATH 10:39
PROVIDERS: ATTEND Internal Medicine Interventional Cardiology
DX: I25.119 Atherosclerotic heart disease of native coronary artery with unspecified angina pectoris (principal); I10 Essential (primary) hypertension; E78.5 Hyperlipidemia, unspecified; Z95.5 Presence of coronary angioplasty implant and graft; Z79.02 Long term (current) use of antithrombotics/antiplatelets; Z01.812 Encounter for preprocedural laboratory examination

== ENCOUNTER 2019-04-01 08:37 | Emergency (ER) | payer OTHER, MEDICAID ==
[~2019-04-01] VITALS: Ht 172.7 cm; Wt 109.1 kg
[2019-04-01 08:40] VITALS: Ht 172.7 cm; Wt 109.1 kg
--- NOTE | 2019-04-01 09:26 | NUR ---
The patient rates low on the suicidal assessment score. He will not require 1:1 observation.
[2019-04-01] MEDS ORDERED: MINOCYCLINE HCL75 M1 PO (09:57)
[2019-04-01] MEDS ORDERED: IBUPROFEN800 MG PO (09:57)
[2019-04-01 10:10] VITALS: BP 124/70
== END 2019-04-01 10:12 | disposition home or self-care (01) ==
LOC: D.ER 08:37
DX: L03.114 Cellulitis of left upper limb (principal)

== ENCOUNTER 2020-01-08 22:21 | Observation (INO) | payer OTHER ==
[~2020-01-08] VITALS: Ht 152.4 cm; Wt 102.3 kg
--- NOTE | ~2020-01-08 | HEMODYNAMI ---
PATIENT:ALBERTO ALLAN MEDICAL RECORD: [id number] : 72 [id number] ADMISSION DATE: 01/09/20 Generatedon:01/09/202016:48 Patient name: ALBERTO ALLAN Patient #: [id number] SSN: [id number] : 1970 Date of study: 01/09/2020 Page: Of Hemodynamic Procedure Report Patient Data Patient Demographics Procedure consent was obtained First Name: ALBERTO Gender: Male Last Name: JERRELL : 1970 Middle Initial: R Age: 49 year(s) Patient #: [id number] Race: SSN: [id number] Additional ID: [id number] Contact details Address: [address] [place] [address] [address] State: [place] City: [facility] Zip code: [address] Past Medical History Allergies: No known allergies Admission Admission Data Admission Date: 01/09/2020 Admission Time: 2:21 Arrival Date: 01/09/2020 Arrival Time: 0:00 Admit Source: Other Insurance Payor: Private Room #: D.2118 health insurance [facility] #: [id number] Height (in.): 60 BSA: 1.96 (m2) Height (cm.): 152.4 BMI: 44.03 (kg/m2) Weight (lbs.): 225.47 Weight (kg.): 102.27 Lab Results Lab Result Date: 01/09/2020 Lab Result Time: 0:00 Biochemistry Name Units Result Min Max BUN mg/dl 14 --(--*-)-- 7 18 Creatinine mg/dl 0.8 --(-*--)-- 0.6 1.3 eGFR ml/min 90 --(*---)-- 90 120 NONAFRICAN CBC Name Units Result Min Max Hematocrit % 49 --(--*-)-- 42 54 Hemoglobin g/dl 15.7 --(--*-)-- 13.5 17.5 Procedure Procedure Types Cath Procedure Diagnostic Procedure [facility] w/Coronaries Sedation Charges Moderate Sedation up to 15 minutes PCI Procedure PTCA PTCA Initial Peripheral Cath Diagnostic Procedure 4-Vessel Carotid Cervical Bilateral Procedure Description Procedure Date Procedure Date: 01/09/2020 Procedure Start Time: 16:11 Procedure End Time: 16:41 Procedure Staff Name Function Rios Appiah MD Performing Physician Tomi Mendoza RT Monitor Ekta Glez RT Scrub Shira López RN Nurse Procedure Data Cath Procedure Fluoroscopy Diagnostic fluoroscopy Total fluoroscopy Time: 7.1 time: 7.1 min min Diagnostic fluoroscopy Total fluoroscopy dose: dose: 1065 mGy 1065 mGy Contrast Material Contrast Material Type Amount (ml) Isovue 370 145 Entry Location Entry Primary Successful Side Size Upsize Upsize Entry Closure Succes sful Closure Location (Fr) 1 (Fr) 2 (Fr) Remarks Device Remarks Femoral Right 5 Fr 6 Fr Exoseal artery Short Estimated blood loss: 10 ml Diagnostic catheters Device Type Used For End Catheter Placement MULTIPACK JL 4.0 5Fr Procedure catheter MULTIPACK 3DRC 5Fr Procedure catheter MULTIPACK Pigtail 5 Fr Procedure catheter DIAGNOSTIC AR MOD 5Fr Procedure Catheter ([id number]) Procedure Complications No complications Procedure Medications Medication Administration Route Dosage 0.9% NaCl I.V. 100 ml/hr Oxygen etCO2 Nasal cannula 2 l/min Lidocaine 2% added to field 20 Heparin Flush Bag added to field 2 bags (1000units/500ml NS) Versed I.V. 2 mg Fentanyl I.V. 50 mcg Heparin Bolus I.V. 5000 units Integrilin (Bolus I.V. 9 ml 2mg/ml) Integrilin (Bolus wasted 1 ml 2mg/ml) Plavix P.O. 600 mg Hemodynamics Rest HGB: 15.7 (g/dl) O2 Consumption: Estimated: 261.99 (ml/min) O2 Consumption index ed: Estimated:133.67 (ml/min/m) Heart Rate: 106 (bpm) Pressure Samples Time Site Value (mmHg) Purpose Heart Use Rate(bpm) 16:21 LV 88/0,6 Snapshot 128 Gradients Valve Time Site Site Mean SEP/DFP Peak To Heart Use 1 2 (mmHg) (sec/min) Peak Rate (mmHg) (bpm) Aortic 16:22 LV AO 100 Snapshots Pre Cath Intra NCS Post Cath Vital Signs Time Heart Resp SPO2 etCO2 NIBP (mmHg) Rhythm Pain Sedation Rate (ipm) (%) (mmHg) Status Level (bpm) 16:05:31 72 21 96 20.2 119/78(88) NSR 0 (11) 10(A) , No pain 16:09:54 79 20 96 28.4 105/70(84) NSR 0 (11) 10(A) , No pain 16:14:14 78 20 96 27.7 108/70(82) NSR 0 (11) 10(A) , No pain 16:18:34 76 16 97 29.2 107/70(88) NSR 0 (11) 10(A) , No pain 16:22:54 77 20 98 21.7 110/76(87) NSR 0 (11) 10(A) , No pain 16:27:14 71 18 96 29.2 110/72(87) NSR 0 (11) 10(A) , No pain 16:31:38 76 18 98 24.6 106/64(82) NSR 0 (11) 10(A) , No pain 16:35:56 73 18 98 23.9 109/72(84) NSR 0 (11) 10(A) , No pain 16:40:12 75 18 98 27.6 123/81(101) NSR 0 (11) 10(A) , No pain Medications Time Medication Route Dose Verified Delivered Reason Notes Effectiveness by by 16:04:23 0.9% NaCl I.V. 100 Rios Schmid used for ml/hr St Shiva Shane RN procedure 16:04:30 Oxygen etCO2 2 Rios Schmid used for Nasal l/min St Shiva Shane RN procedure cannula 16:04:35 Lidocaine 2% added 20ml Rios Nation for local to vial [facility] anesthetic field MD SYKES 16:04:40 Heparin Flush added 2 Rios Nation used for Bag to bags [facility] procedure (1000units/500ml field MD SYKES NS) 16:11:42 Fentanyl I.V. 50 Rios Schmid for sedation mcg St Shiva Shane RN, MD 16:11:42 Versed I.V. 2 mg Rios Schmid for sedation St Shiva Shane RN, MD 16:26:09 Heparin Bolus I.V. 5000 Rios Silva for verif ied units [facility] anticoagulation with Dr. MD GETACHEW [place] 16:32:02 Integrilin I.V. 9 ml Rios Silva for (Bolus 2mg/ml) St Shiva López antiplatelet RN therapy 16:32:11 Integrilin wasted 1 ml Rios Skinnera for (Bolus 2mg/ml) St Shiva Lópze antiplatelet RN therapy 16:32:23 Plavix P.O. 600 Rios Silva for mg St Shiva López antiplatelet RN therapy Procedure Log Time Note 15:30:37 Informed consent obtained and on chart 15:30:58 Procedure Status Urgent Heart Cath (IP). 15:30:59 Time tracking: Regular hours (M-F 7:00 - 5:00) 15:31:02 Plan of Care:Hemodynamics will remain stable., Cardiac rhythm will remain stable., Comfort level will be maintained., Respiratory function will remain adequate., Patient/ family verbilizes understanding of procedure., Procedure tolerated without complication., Recovers from procedure without complications.. 15:31:04 Binu Shane RN sent for patient. Start room use. 15:31:14 H&P Date Dictated: 01/09/2020 Within 30 days and on chart., H&P Addendum completed by physician on day of procedure. (MUST COMPLETE FOR ALL OUTPATIENTS). 15:31:20 Patient allergic to No known allergies 15:33:06 Lab Result : Hemoglobin 15.7 g/dl 15:33:06 Lab Result : Hematocrit 49 % 15:33:06 Lab Result : eGFR NONAFRICAN 90 ml/min 15:33:06 Lab Result : BUN 14 mg/dl 15:33:06 Lab Result : Creatinine 0.8 mg/dl 15:37:40 Risk of Mortality: 1.3 15:37:42 Risk of blood transfusion: .8 15:37:46 Risk of RISHI: 1.8 15:56:06 Patient received from Med II to CCL 1 Alert and oriented. Tansferred to table in Supine position. 15:56:07 Warm blankets applied, and mariano hugger turned on for patient comfort. 15:56:08 Correct patient and procedure confirmed by team. 15:56:10 ECG and BP/O2 sat monitors applied to patient. 15:56:11 Pre-op teaching completed and patient verbalized understanding. 15:56:11 Pre-procedure instructions explained to patient. 15:56:16 Family in waiting room. 16:04:13 Vital chart was started 16:04:23 0.9% NaCl 100 ml/hr I.V. was administered by Binu Shane RN; used for procedure; Verbal order read back and verified. 16:04:30 Oxygen 2 l/min etCO2 Nasal cannula was administered by Binu Shane RN; used for procedure; Verbal order read back and verified. 16:04:35 Lidocaine 2% 20ml vial added to field was administered by Rios Appiah MD; for local anesthetic; Verbal order read back and verified. 16:04:40 Heparin Flush Bag (1000units/500ml NS) 2 bags added to field was administered by Rios Appiah MD; used for procedure; Verbal order read back and verified. 16:07:33 Patient Weight : 225.47 lbs 16:07:40 Patient Height : 60 inches 16:07:43 Arrival Date: 01/09/2020 12:00:00 AM 16:07:44 Admit Source: Other 16:07:48 Insurance Payor : Private health insurance 16:08:49 Patient allergic to No known allergies 16:08:58 Is the patient allergic to Iodine/contrast media? No. 16:08:59 Was the patient premedicated? N/A 16:09:13 Is patient on blood thinner?No 16:09:15 Patient diabetic? Yes. 16:09:17 If diabetic: On Metformin? Yes 16:09:22 If on Metformin: Last Dose? 01/08/2020 16:09:43 ----Pre-sedation anethsthesia assessment.---- 16:09:47 Previous problem with sedation/anesthesia? No ? 16:09:58 Snore? Yes 16:10:00 Sleep apnea? No 16:10:02 Deviated septum? No 16:10:08 Opens mouth fully? Yes 16:10:10 Sticks out tongue? Yes 16:10:13 Airway obstruction? No ? 16:10:16 Dentures? No ? 16:10:20 Patient pain scale 0/10 ?. 16:10:33 IV patent on arrival in left antecubital with 0.9% NaCl at [facility]. 16:10:37 Stress Test: no; N/A ? 16:10:40 Lab results completed and on chart. 16:10:46 Right groin area was prepped with chlora-prep and draped in sterile fashion 16:10:47 Alarms reviewed by R. N. 16:10:48 Sharps counted by scrub and verified by R.N. 16:10:50 Final Timeout: patient, procedure, and site verified with staff and physician. All members of the team are in agreement. 16:10:50 --------ALL STOP TIME OUT------ 16:10:52 Right groin site verified by team. 16:10:55 Fire Safety Assessment: A--An alcohol-based skin anteseptic being used preoperatively., C--Open oxygen or nitrous oxide is being used., D--An ESU, laser, or fiber-optic light is being used. 16:10:59 Physical assessment completed. ASA score P 2 - A patient with mild systemic disease as per Rios Appiah MD. 16:11:06 1) 90+ Normal kidney functon but urine findings or structural abnormalities or genetic trait point to kidney disease. 16:11:09 Maximum allowable contrast dose (3.7 X eGFR X 0.75)250 ml. 16:11:12 Sedation plan: IV Moderate Sedation Medication:Versed, Fentanyl 16:11:16 Full Disclosure recording started 16:11:16 Procedure started. 16:11:20 Local anesthetic to right femoral artery with Lidocaine 2% by Rios Appiah MD.INITIAL ACCESS ONLY 16:11:42 Versed 2 mg I.V. was administered by Binu Shane RN; for sedation; Verbal order read back and verified. 16:11:42 Fentanyl 50 mcg I.V. was administered by Binu Shane RN; for sedation; Verbal order read back and verified. 16:12:09 Baseline sample Acquired. 16:12:24 Rhythm: sinus rhythm 16:12:43 A 5 Fr sheath was inserted into the Right Femoral artery 16:12:52 Zero performed for pressure channel P1 16:12:55 Zero performed for pressure channel P1 16:14:33 Use device set Femoral Dx 16:14:34 ACIST Syringe (91826) opened to sterile field. 16:14:35 Bag Decanter () opened to sterile field. 16:14:36 Medline Cath Pack ([id number]) opened to sterile field. 16:14:37 ACIST Manifold (62021) opened to sterile field. 16:14:37 ACIST Hand Control (11258) opened to sterile field. 16:14:38 Tegaderm 4 x 4 (1626W) opened to sterile field. 16:14:39 SHEATH 5FR Clayton (CPR369) opened to sterile field. 16:14:40 EXOSEAL 5Fr (EX500) opened to sterile field. 16:14:40 EMERALD Guide Wire (502-644) opened to sterile field. 16:14:44 DIAGNOSTIC Multipack 5Fr catheter set (QQ7827) opened to sterile field. 16:14:49 A MULTIPACK JL 4.0 5Fr catheter was advanced over the wire and used for Procedure. 16:14:51 LCA angiography performed. 16:16:26 Catheter exchanged over wire. 16:16:32 A MULTIPACK 3DRC 5Fr catheter was advanced over the wire and used for Procedure. 16:18:45 RCA angiography performed. 16:19:48 Left carotid angiography performed. 16:21:03 Catheter exchanged over wire. 16:21:07 A MULTIPACK Pigtail 5 Fr catheter was advanced over the wire and used for Procedure. 16:22:15 EF : 40 % 16:22:17 LV hemodynamics recorded. 16:22:19 Injector settings: Ml/sec: 10, Volume: 20, 16:23:09 Catheter exchanged over wire. 16:23:29 A DIAGNOSTIC AR MOD 5Fr Catheter ([id number]) was advanced over the wire and used for Procedure. 16:24:04 Right carotid angiography performed. 16:24:56 INFLATOR Merit BasixCompak (GP8179) opened to sterile field. 16:24:57 SHEATH 6FR Clayton (KNH247) opened to sterile field. 16:24:57 WHISPER 300cm guide wire ([id number]) opened to sterile field. 16:25:28 GUIDE 6FR XBLAD 3.5 catheter ([id number]) opened to sterile field. 16:26:09 Heparin Bolus 5000 units I.V. was administered by Shira López RN; for anticoagulation; verified with Dr. [place] Verbal order read back and verified. 16:26:36 Catheter removed. 16:26:40 Sheath upsized to a 6 Fr Short. 16:26:55 6 Fr XBLAD 3.5 guide catheter was inserted over the wire 16:27:19 WHISPER wire advanced. 16:29:47 Wire advanced across lesion. 16:30:39 Pre PCI Site: [place] mLAD has 100% stenosis. 16:30:43 ACC Pre-intervention SHAR Flow is 0. 16:31:48 Inflate balloon Inflation number: 1 A EUPHORA 2.5 x 20 Balloon ([id number]) was prepped and advanced across the Mid LAD 0, then inflated to 14 ENZO for 0:45 (min:sec) 0. 16:32:02 Integrilin (Bolus 2mg/ml) 9 ml I.V. was administered by Shira López RN; for antiplatelet therapy; Verbal order read back and verified. 16:32:11 Integrilin (Bolus 2mg/ml) 1 ml wasted was administered by Shira López RN; for antiplatelet therapy; Verbal order read back and verified. 16:32:23 Plavix 600 mg P.O. was administered by Shira López RN; for antiplatelet therapy; Verbal order read back and verified. 16:32:42 Inflation number: 2 The EUPHORA 2.5 x 20 Balloon ([id number]) was reinflated across the Mid LAD 0, to 14 ENZO for 0:45 (min:sec) . 16:33:15 Inflation number: 3 The EUPHORA 2.5 x 20 Balloon ([id number]) was reinflated across the Mid LAD , to 14 ENZO for 0:45 (min:sec) . 16:34:00 Inflation number: 4 The EUPHORA 2.5 x 20 Balloon ([id number]) was reinflated across the Mid LAD , to 14 ENZO for 0:45 (min:sec) . 16:34:41 Inflation number: 5 The EUPHORA 2.5 x 20 Balloon ([id number]) was reinflated across the Mid LAD , to 10 ENZO for 0:45 (min:sec) . 16:35:09 Balloon removed over the wire. 16:35:39 Wire removed. 16:35:40 Guide catheter removed. 16:35:42 ACC Post-intervention SHAR Flow is 3. 16:35:56 ACT drawn and resulted at 228 seconds. (normal therapeutic range 180-240 seconds). 16:36:02 Post PCI Site: [place] mLAD has 0% stenosis. 16:38:43 Sheath removed intact; hemostasis achieved with Exoseal to the Right Femoral artery. 16:38:47 Procedure ended.(Physican Out) 16:38:56 Fluoroscopy time 07.10 minutes. 16:39:00 Fluoroscopy dose: 1065 mGy 16:39:00 Flurop Dose total: 1065 16:39:18 Dose Area Product 05511 mGy/cm. 16:39:29 Contrast amount:Isovue 370 145ml. 16:39:39 Maximum allowable dose exceeded? No. 16:39:42 Sharps counted by scrub and verified by R.N. 16:39:43 Insertion/operative site no bleeding no hematoma. 16:39:46 Post-op/insertion site Right Femoral artery dressed using a 4 x 4 and Tegaderm. 16:39:49 Post right femoral artery:stable, soft, clean and dry 16:39:51 Post Procedure Pulses reassessed and unchanged 16:39:54 Post-procedure physical assessment completed. ASA score P 2 - A patient with mild systemic disease as per Rios Appiah MD. 16:39:57 Post procedure rhythm: unchanged. 16:40:12 Estimated blood loss: 10 ml 16:40:13 Post procedure instruction explained to patient.Patient verbalizes understanding. 16:40:14 Patient needs reinforcement of post procedure teaching. 16:40:40 Procedure type changed to Cath procedure, Diagnostic procedure, LHC, C w/Coronaries, Sedation Charges, Moderate Sedation up to 15 minutes, PCI procedure, PTCA, PTCA Initial, Peripheral Cath Diagnostic Procedure, 4-Vessel, Carotid Cervical Bilateral 16:41:15 Procedure and supply charges have been captured, reviewed, submitted and are correct. 16:41:22 Procedure Complication : No complications 16:41:25 Vital chart was stopped 16:41:39 [facility] Findings: MVD- PCI performed (see procedure note) 16:41:46 Operative report dictated upon procedure completion. 16:41:47 See physician's report for complete and final results. 16:41:49 Report given to PCU. 16:41:52 Patient transfered to PCU with Stretcher. 16:41:53 Full Disclosure recording stopped 16:41:53 Procedure ended. 16:42:01 ACC-PCI Only Patient was given prescriptions, or instructed by Rios Appiah MD to start/continue the following medications upon discharge: Aspirin, Plavix 16:42:02 End room use (Document Last) Intervention Summary Intervention Notes Time ActionType Lesion and Equipment Action# Pressure Duration Attributes Used 16:31:48 Inflate Mid LAD EUPHORA 1 14 00:45 balloon 2.5 x 20 Balloon ([id number]) 16:32:42 Reinflate Mid LAD EUPHORA 2 14 00:45 balloon 2.5 x 20 Balloon ([id number]) 16:33:15 Reinflate Mid LAD EUPHORA 3 14 00:45 balloon 2.5 x 20 Balloon ([id number]) 16:34:00 Reinflate Mid LAD EUPHORA 4 14 00:45 balloon 2.5 x 20 Balloon ([id number]) 16:34:41 Reinflate Mid LAD EUPHORA 5 10 00:45 balloon 2.5 x 20 Balloon ([id number]) Device Usage Item Name Manufacture Quantity Catalog Hospital Part Current Minimal L ot# / Number Charge Number Stock Stock Serial# Code ACIST Acist 1 93505 483927 818146 219424 20 Syringe Medical (32684) Systems Inc Bag Microtek 1 2001S 066253 25773 543199 5 Decanter Medical Inc. (2001S) Medline Medline 1 [id number] 460611 80132 858450 5 Cath Pack ([id number]) ACIST Hand Acist 1 48100 276998 101849 722530 5 Control Medical (76520) Systems Inc ACIST Acist 1 90069 560932 216382 321015 5 Manifold Medical (98310) Systems Inc Tegaderm 4 3M 1 1626W 056782 468923 520996 5 x 4 (1626W) SHEATH 5FR Terumo 1 LKO284 617993 724594 814406 5 Clayton (DUO516) EMERALD Cardinal 1 502-455 881762 725382 813004 5 Guide Wire Health (502-455) EXOSEAL 5Fr Cardinal 1 EX500 740065 353828 011884 10 (EX500) Health DIAGNOSTIC Cardinal 1 XJ8456 419528 54177 849644 30 Multipack Health 5Fr catheter set (ZR3895) MULTIPACK Cardinal 1 744021 5 JL 4.0 5Fr Health catheter MULTIPACK Cardinal 1 676845 5 3DRC 5Fr Health catheter MULTIPACK Cardinal 1 240856 5 Pigtail 5 Health Fr catheter DIAGNOSTIC Cardinal 1 [id number] 473541 049306 941206 15 AR MOD 5Fr Health Catheter (411174J) INFLATOR Merit 1 AK4713 811429 702455 216041 15 Merit Medical BasixCompak (UV4420) WHISPER Fernandes 1 [id number] 550444 967547 404975 5 300cm guide Vascular wire ([id number]) SHEATH 6FR Terumo 1 FTJ411 444000 327365 700501 40 Clayton (PRZ953) GUIDE 6FR Cardinal 1 49933690 745749 707607 548251 10 XBLAD 3.5 Health catheter (16828837) EUPHORA 2.5 Medtronic 1 [id number] 474091 709722 916659 5 2 [id number] x 20 Balloon ([id number]) Signature Audit [place] Stage Time Signature Unsigned Intra-Procedure 01/09/2020 Shira López 4:44:46 PM RN Intra-Procedure 01/09/2020 Rios Cary 4:45:30 PM Shiva SYKES; Tomi Mendoza RT(R) [facility] [address] [place] [address]
[~2020-01-08 22:21] MED LIST changes: +IBUPROFEN800 MG PO; +MINOCYCLINE HCL75 M1 PO
[2020-01-08] MEDS ORDERED: EFFEXOR75 MG PO (22:30)
[2020-01-08] MEDS ORDERED: GLUCOPHAGE500 MG PO (22:31)
[2020-01-08 23:17] LABS: BASOPHILS 0.2 % (0-2); EOSINOPHILS 2.3 % (0-7); HEMATOCRIT 49.6 % (42.0-54.0); HEMOGLOBIN 16.2 g/dL (13.5-17.5); IMMATURE GRANULOCYTES 0.6 % (0-5); LYMPHOCYTES 10.4 % (15-50); MCH 28.7 pg (26.0-34.0); MCHC 32.7 g/dL (31.0-37.0); MCV 87.8 fL (80.0-100.0); MONOCYTES 4.8 % (2-11); NEUTROPHILS 81.7 % (40-80); PLATELET COUNT 169 10x3/uL (130-400); RBC 5.65 10x6/uL (4.20-6.10); RDW 14.2 % (11.5-14.5)
[2020-01-08 23:25] LABS: CALC OSMOLALITY 267 mosm/kg (275-300); CALCIUM 8.8 mg/dL (8.5-10.1); CARBON DIOXIDE 27.2 mmol/L (21.0-32.0); CHLORIDE - SERUM 96 mmol/L (98-107); GLUCOSE 170 mg/dL (74-106); SODIUM 131 mmol/L (136-145); UREA NITROGEN 16 mg/dL (7-18); eGFR NON AFRICAN AMERICAN 85 mL/min (90-120)
[2020-01-08 23:30] LABS: INR 0.94 (0.85-1.17); PROTIME 12.6 SECONDS (11.6-15.0)
[2020-01-08 23:42] LABS: BILIRUBIN NEGATIVE (NEGATIVE); GLUCOSE 100 mg/dL (NEGATIVE); KETONE NEGATIVE (NEGATIVE); NITRITE NEGATIVE (NEGATIVE); UROBILINOGEN 8 mg/dL (NORMAL)
[2020-01-08 23:42] LABS: ALBUMIN 3.5 g/dL (3.4-5.0); ALKALINE PHOSPHATASE 124 U/L (30-120); ALT (SGPT) 25 U/L (10-68); BILIRUBIN - TOTAL 0.26 mg/dL (0.2-1.3); CKMB 0.5 U/L (0.0-3.6); CREATINE KINASE 63 UL (21-232); MAGNESIUM - SERUM 1.9 mg/dL (1.8-2.4); PROTEIN - SERUM 8.1 g/dL (6.4-8.2); THYROID STIMULATING HORMONE 1.53 uIU/mL (0.36-3.74); TROPONIN-I < 0.017 ng/mL (0.000-0.060)
[2020-01-08 23:43] LABS: BACTERIA FEW /hpf (NEGATIVE); EPITHELIAL CELLS 0-5 /hpf (0-5); RED CELLS - URINE NONE SEEN /hpf (0-5); UDS - AMPHET NEGATIVE QUAL (NEGATIVE); UDS - BARB NEGATIVE QUAL (NEGATIVE); UDS - BENZO NEGATIVE QUAL (NEGATIVE); UDS - COCAINE NEGATIVE QUAL (NEGATIVE); UDS - OPIATE NEGATIVE QUAL (NEGATIVE); UDS - PCP NEGATIVE QUAL (NEGATIVE); UDS - THC NEGATIVE QUAL (NEGATIVE); WHITE CELLS - URINE 0-5 /hpf (NEGATIVE)
[2020-01-09] VITALS (9 sets, daily range): BP systolic 98–141; BP diastolic 57–90; Ht 152.4 cm; Wt 102.3 kg
[2020-01-09 04:44] LABS: BASOPHILS 0.4 % (0-2); EOSINOPHILS 3.3 % (0-7); HEMOGLOBIN 15.7 g/dL (13.5-17.5); IMMATURE GRANULOCYTES 0.3 % (0-5); MCH 27.7 pg (26.0-34.0); MCV 86.6 fL (80.0-100.0); MEAN PLATELET VOLUME 10.5 fL (7.4-10.4); MONOCYTES 5.3 % (2-11); NEUTROPHILS 59.7 % (40-80); PLATELET COUNT 180 10x3/uL (130-400); RBC 5.66 10x6/uL (4.20-6.10); RDW 14.4 % (11.5-14.5)
[2020-01-09 04:53] LABS: WBC 7.9 10x3/uL (4.8-10.8)
[2020-01-09 05:12] LABS: CALC OSMOLALITY 269 mosm/kg (275-300); CALCIUM 9.1 mg/dL (8.5-10.1); CARBON DIOXIDE 27.2 mmol/L (21.0-32.0); CHLORIDE - SERUM 99 mmol/L (98-107); CKMB 0.6 U/L (0.0-3.6); CREATINE KINASE 65 UL (21-232); CREATININE - SERUM 0.8 mg/dL (0.6-1.3); GLUCOSE 153 mg/dL (74-106); MAGNESIUM - SERUM 2.2 mg/dL (1.8-2.4); PHOSPHOROUS 3.9 mg/dL (2.5-4.9); POTASSIUM - SERUM 4.2 mmol/L (3.5-5.1); SODIUM 133 mmol/L (136-145); TROPONIN-I < 0.017 ng/mL (0.000-0.060); UREA NITROGEN 14 mg/dL (7-18); eGFR NON AFRICAN AMERICAN > 90 mL/min (90-120)
[2020-01-09 08:06] LABS: ALT (SGPT) 23 U/L (10-68); CHOL - HDL RATIO 11.7 ratio (2.3-4.9); CHOLESTEROL, TOTAL 280 mg/dL (0-200); HDL CHOLESTEROL 24 mg/dL (32-96); TRIGLYCERIDE 477 mg/dL (30-200)
--- NOTE | 2020-01-09 09:57 | NUR ---
CONSENTS SIGNED FOR [facility]. WILL CONT. PLAN OF CARE.
[2020-01-09 11:58] LABS: CKMB 0.4 U/L (0.0-3.6); CREATINE KINASE 56 UL (21-232); TROPONIN-I < 0.017 ng/mL (0.000-0.060)
--- NOTE | 2020-01-09 15:49 | NUR ---
PRE-OPS GIVEN. TO CARBIDE OPERATOR BY BED.
--- NOTE | 2020-01-09 17:07 | NUR ---
BACK FROM TAKE AWAY MAN. VS WNL. RIGHT GROIN STABLE WITHOIT BLEEDING OT HEMATOMA NOTED. WILL MONITOR.
--- NOTE | 2020-01-09 19:27 | NUR ---
RECEIVED BEDSIDE REPORT. PATIENT IS ALERT AND ORIENTED, RESTING COMFORTABLY IN BED. RESPIRATIONS ARE EVEN AND UNLABORED. NO S/S OF DISTRESS. NO C/O PAIN. CALL LIGHT WITHIN REACH.
[2020-01-10 04:41] VITALS: BP 106/60
[2020-01-10 07:06] LABS: BASOPHILS 0.6 % (0-2); EOSINOPHILS 6.7 % (0-7); HEMATOCRIT 46.5 % (42.0-54.0); HEMOGLOBIN 14.7 g/dL (13.5-17.5); IMMATURE GRANULOCYTES 0.6 % (0-5); LYMPHOCYTES 41.7 % (15-50); MCH 27.8 pg (26.0-34.0); MCHC 31.6 g/dL (31.0-37.0); MCV 87.9 fL (80.0-100.0); MEAN PLATELET VOLUME 10.6 fL (7.4-10.4); MONOCYTES 6.7 % (2-11); NEUTROPHILS 43.7 % (40-80); PLATELET COUNT 174 10x3/uL (130-400); RBC 5.29 10x6/uL (4.20-6.10); RDW 14.5 % (11.5-14.5)
[2020-01-10 07:10] LABS: WBC 5.4 10x3/uL (4.8-10.8)
--- NOTE | 2020-01-10 07:10 | NUR ---
REPORT RECEIVED FROM SEAFOOD FISHERMAN AND PATIENT CARE ASSUMED. PATIENT LAYING IN BED ON BACK AWAKE, ALERT AND ORIENTED X 4. PATIENT IS STABLE AND VSS. PATIENT DENIES ANY NEEDS OR PAIN. WILL CONTINUE WITH PLAN OF CARE. SR UP X 2 BED IN LOW POSITION AND CALL LIGHT IN REACH.
[2020-01-10 07:40] LABS: CALC OSMOLALITY 272 mosm/kg (275-300); CALCIUM 8.4 mg/dL (8.5-10.1); CARBON DIOXIDE 24.4 mmol/L (21.0-32.0); CHLORIDE - SERUM 99 mmol/L (98-107); PHOSPHOROUS 3.3 mg/dL (2.5-4.9); POTASSIUM - SERUM 3.9 mmol/L (3.5-5.1); SODIUM 133 mmol/L (136-145); UREA NITROGEN 14 mg/dL (7-18); eGFR NON AFRICAN AMERICAN 85 mL/min (90-120)
[2020-01-10 07:42] LABS: GLUCOSE 208 mg/dL (74-106)
[2020-01-10] MEDS ORDERED: PLAVIX75 MG PO (11:03)
--- NOTE | 2020-01-11 09:07 | OP ---
PATIENT NAME: ALBERTO ALLAN MEDICAL RECORD: [id number] :72 LOCATION:D.M2 D.2118 ADMISSION DATE:01/09/20 SURGEON: EAMON ARAGON MD DATE OF OPERATION: 01/09/2020 PROCEDURE: Left heart catheterization plus PTCA to the LAD plus 4-vessel arteriography, right femoral artery approach. CATHETERS: A 5-American sheath, 5/4 left and right Mandi, 5/4 pig. The procedure was well tolerated. The patient returned to the goldstein, sheath removed. ExoSeal device placed. FINDINGS: Left ventriculography in 30-degree WARD view shows mild anterior apical hypokinesis, LV function, mildly reduced at 40% to 45%. CORONARY ANATOMY: LEFT MAIN: Left main is free of disease. LAD: LAD with the most distal stent is basically subtotaled with SHAR flow 1 distally, there is some ghost filling from left to left collaterals. CIRCUMFLEX: Circumflex has luminal irregularities, no flow limiting obstructive stenosis. This is a left dominant system. 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 FOUR-VESSEL ARTERIOGRAPHY: Four-vessel arteriography was performed with a history of amaurosis fugax, dizziness, syncope and a CTA of the carotids was indeterminate secondary to patient motion artifact. Right common carotid was selectively engaged using an AR1 catheter. RIGHT: Right common carotid smooth-walled vessel, free of disease. Right internal carotid shows marked tortuosity with basically curve, but no significant stenosis. Right external carotid is free of disease. LEFT: Left common carotid was selectively engaged. This shows luminal irregularity, but no stenosis greater than 10%. Left internal carotid is smooth-walled vessel, free of disease. Left external carotid shows luminal irregularities with no flow obstructive stenosis. No stenosis greater than 20%. PLAN: Intervention to the LAD. DESCRIPTION OF PROCEDURE: A 5-American sheath was exchanged for a 6-American sheath. A XB LAD guiding catheter provided excellent guide catheter. We were actually able to pass the Whisper wire across the subtotal in-stent restenosis down this portion of vessel. Balloon used was a 2.5 x 20 mm balloon up and down the area of stenosis, inflated up to 14 atmospheres. Final angiography shows excellent resolution of a subtotal greater than 90% stenosis, no significant residual. SHAR flow improved from 1-3. No evidence of dissection. Sheath was closed with ExoSeal device. Plavix was loaded in the lab. Integrilin was used during the case. TRANSINT:[id number] Voice Confirmation ID: [id number] DOCUMENT ID: [id number] OPERATIVE REPORT [id number] ALBERTO ALLAN,EAMON Witt MD at 0907 CC: [id number] DICTATION DATE: 01/09/20 1644 NURSE ADMINISTRATOR: 01/10/20 0052 DIS IN 01/10/20 [id number] [place] [address]
== END 2020-01-10 12:36 | disposition home or self-care (01) ==
LOC: D.ER 22:21 → D.M2 01-09 02:21 → OBSVTIME 01-09 02:21 → D.M2 01-09 02:21
PROVIDERS: Family Medicine; Internal Medicine Cardiovascular Disease; ADMIT Family Medicine; ATTEND Family Medicine
DX: I25.110 Atherosclerotic heart disease of native coronary artery with unstable angina pectoris (principal); I10 Essential (primary) hypertension; E78.5 Hyperlipidemia, unspecified; E11.9 Type 2 diabetes mellitus without complications; F41.8 Other specified anxiety disorders; F31.9 Bipolar disorder, unspecified; M19.90 Unspecified osteoarthritis, unspecified site; L30.9 Dermatitis, unspecified; R55 Syncope and collapse

== ENCOUNTER 2020-02-29 08:16 | Inpatient (IN) | payer OTHER ==
[~2020-02-29] VITALS: Ht 172.7 cm; Wt 100.5 kg
[2020-02-29 08:43] LABS: BASOPHILS 0.7 % (0-2); EOSINOPHILS 3.6 % (0-7); HEMATOCRIT 50.2 % (42.0-54.0); HEMOGLOBIN 16.4 g/dL (13.5-17.5); IMMATURE GRANULOCYTES 0.2 % (0-5); LYMPHOCYTES 45.9 % (15-50); MCH 28.5 pg (26.0-34.0); MCHC 32.7 g/dL (31.0-37.0); MCV 87.3 fL (80.0-100.0); MEAN PLATELET VOLUME 11.4 fL (7.4-10.4); MONOCYTES 5.9 % (2-11); NEUTROPHILS 43.7 % (40-80); PLATELET COUNT 164 10x3/uL (130-400); RBC 5.75 10x6/uL (4.20-6.10); RDW 14.2 % (11.5-14.5); WBC 6.1 10x3/uL (4.8-10.8)
[2020-02-29 09:02] LABS: CALC OSMOLALITY 282 mosm/kg (275-300); CALCIUM 8.6 mg/dL (8.5-10.1); CHLORIDE - SERUM 103 mmol/L (98-107); CREATININE - SERUM 1.3 mg/dL (0.6-1.3); GLUCOSE 252 mg/dL (74-106); POTASSIUM - SERUM 4.4 mmol/L (3.5-5.1); SODIUM 136 mmol/L (136-145); UREA NITROGEN 18 mg/dL (7-18); eGFR NON AFRICAN AMERICAN 62 mL/min (90-120)
[2020-02-29 09:12] LABS: APTT 29.3 SECONDS (22.8-39.4); INR 0.88 (0.85-1.17); PROTIME 11.9 SECONDS (11.6-15.0)
[2020-02-29 09:17] LABS: ALBUMIN 3.3 g/dL (3.4-5.0); ALKALINE PHOSPHATASE 116 U/L (30-120); BILIRUBIN - TOTAL 0.37 mg/dL (0.2-1.3); CREATINE KINASE 68 UL (21-232); TROPONIN-I < 0.017 ng/mL (0.000-0.060)
[2020-02-29 09:23] LABS: ALT (SGPT) 34 U/L (10-68); PROTEIN - SERUM 7.3 g/dL (6.4-8.2)
--- NOTE | 2020-02-29 09:40 | NUR ---
TO MRI VIA WC WITH ZIPPER TRIMMER HAND
[2020-02-29 10:30] VITALS: BP 152/98
--- NOTE | 2020-02-29 11:15 | NUR ---
URINE COLLECTED AND SENT TO LAB VIA TUBE SYSTEM.
[2020-02-29 11:23] VITALS: BP 141/95
--- NOTE | 2020-02-29 11:49 | NUR ---
REC'D FROM ER TO ROOM 7797 AWAKE AND ALERT. RESP EVEN AND UNLABORED WITH NO DISTRESS NOTED. CAN EXPRESS EXPRESS NEEDS AND WANTS.NO C/O NOTED OR VOICED. IV NOTED TO L HAND WHICH IS SALINE LOCK. DENIES ANY PAIN OR DISCOMFORT AT THIS TIME. C/L IN REACH AT BEDSIDE.
[2020-02-29 11:59] LABS: BILIRUBIN NEGATIVE (NEGATIVE); GLUCOSE 1000 mg/dL (NEGATIVE); KETONE NEGATIVE (NEGATIVE); NITRITE NEGATIVE (NEGATIVE); SPECIFIC GRAVITY 1.015 (1.005-1.020); UROBILINOGEN 4 mg/dL (NORMAL)
[2020-02-29 12:17] LABS: UDS - AMPHET NEGATIVE QUAL (NEGATIVE); UDS - BARB NEGATIVE QUAL (NEGATIVE); UDS - BENZO NEGATIVE QUAL (NEGATIVE); UDS - COCAINE NEGATIVE QUAL (NEGATIVE); UDS - OPIATE NEGATIVE QUAL (NEGATIVE); UDS - PCP NEGATIVE QUAL (NEGATIVE); UDS - THC NEGATIVE QUAL (NEGATIVE)
--- NOTE | 2020-02-29 13:12 | NUR ---
I have reviewed this patient and I concur with the Shift Assessment completed by the Licensed Practical Nurse today this shift.
[2020-02-29 13:20] VITALS: BP 138/85
[2020-02-29 16:00] VITALS: BP 120/67
--- NOTE | 2020-02-29 22:00 | NUR ---
PT ALERT AND ORIENTED. NO SIGNS OF DISTRESS. BREATHING EVEN AND UNLABORED. PT STATES NO PROBLEMS AT THIS TIME. IV OUT. PT SAID IT CAME OUT WHILE HE WAS SLEEPING. WILL RESITE. TELE MONITOR ON. SKIN CLEAN DRY AND INTACT. WILL CONTINUE PLAN OF CARE. CALL LIGHT IN REACH. BED LOWERED AND LOCKED. BED RAILS UPX1.
[2020-03-01] VITALS (41 sets, daily range): BP systolic 69–139; BP diastolic 39–93; Ht 172.7 cm; Wt 100.5 kg
--- NOTE | 2020-03-01 00:50 | NUR ---
CALL FROM TELE MONITOR STATION TO CHECK ON PT HEART RATE WAS JUMPING. WALKED IN PT LAYING IN SUPINE POSTION SKIN COLOR BLUE. PT NOT BREATHING. ATTEMPTED TO FIND PULSE. NO PULSE. BEGAIN CPR CALLED CODE BLUE.
--- NOTE | 2020-03-01 01:09 | NUR ---
PATIENT BROUGHT TO ICU PER MD ORDER AFTER CODING ON MED SURG. PATIENT IS UNRESPONSIVE AT THIS TIME. LUNGS WITH COURSE RESPIRATIONS THROUGHOUT ALL LOBES AND DIMINISHED IN BASES. HEART TONES RRR AUSC. CAP REFILL 3 SECS. ABDOMEN SOFT AND ROUNDED. BS PRESENT X4 QUADS. SKIN WARM/DRY WITH CHEST AND NECK PURPLISH IN COLOR. PATIENT HAD LARGE FORMED BROWN BM UPON MOVING OVER TO ICU BED.
--- NOTE | 2020-03-01 01:30 | NUR ---
CALLED DAUGHTER TO NOTIFY. PT TRANSFURED TO ICU.
[2020-03-01 01:36] LABS: BASOPHILS 0.4 % (0-2); EOSINOPHILS 1.7 % (0-7); HEMATOCRIT 48.6 % (42.0-54.0); HEMOGLOBIN 15.6 g/dL (13.5-17.5); IMMATURE GRANULOCYTES 0.8 % (0-5); LYMPHOCYTES 26.2 % (15-50); MCH 28.1 pg (26.0-34.0); MCHC 32.1 g/dL (31.0-37.0); MCV 87.6 fL (80.0-100.0); MEAN PLATELET VOLUME 11.1 fL (7.4-10.4); MONOCYTES 5.3 % (2-11); NEUTROPHILS 65.6 % (40-80); PLATELET COUNT 152 10x3/uL (130-400); RBC 5.55 10x6/uL (4.20-6.10); RDW 14.1 % (11.5-14.5)
[2020-03-01 01:37] LABS: WBC 8.9 10x3/uL (4.8-10.8)
--- NOTE | 2020-03-01 01:45 | NUR ---
IV RESTARTED WITH 20 G CATH IN R FA X1 STICK WITH ASEPTIC TECH USED. LINDSAY CATH PLACED WITH INTERNATIONAL MARKETING COORDINATOR PATIENT TOLERATED WELL. CALL LIGHT WITHIN REACH.
[2020-03-01 01:46] LABS: CALC OSMOLALITY 283 mosm/kg (275-300); CALCIUM 8.6 mg/dL (8.5-10.1); CARBON DIOXIDE 28.6 mmol/L (21.0-32.0); CHLORIDE - SERUM 98 mmol/L (98-107); CREATININE - SERUM 1.4 mg/dL (0.6-1.3); GLUCOSE 274 mg/dL (74-106); POTASSIUM - SERUM 4.3 mmol/L (3.5-5.1); SODIUM 136 mmol/L (136-145); UREA NITROGEN 17 mg/dL (7-18); eGFR NON AFRICAN AMERICAN 57 mL/min (90-120)
[2020-03-01 01:50] LABS: PROTIME 13.9 SECONDS (11.6-15.0)
[2020-03-01 01:51] LABS: D-DIMER-QUANTITATIVE 0.59 ug/mLFEU (0.20-0.54)
[2020-03-01 01:52] LABS: APTT 67.1 SECONDS (22.8-39.4); INR 1.08 (0.85-1.17)
--- NOTE | 2020-03-01 01:55 | NUR ---
NS STARTED IN R FA AT 125ML/HR PER ORDER.
[2020-03-01 02:02] LABS: ALBUMIN 3.3 g/dL (3.4-5.0); ALKALINE PHOSPHATASE 113 U/L (30-120); BILIRUBIN - TOTAL 0.49 mg/dL (0.2-1.3); CKMB 0.7 U/L (0.0-3.6); CREATINE KINASE 55 UL (21-232); MAGNESIUM - SERUM 1.8 mg/dL (1.8-2.4); PHOSPHOROUS 5.1 mg/dL (2.5-4.9); PROTEIN - SERUM 7.8 g/dL (6.4-8.2)
[2020-03-01 02:04] LABS: ALT (SGPT) 67 U/L (10-68); TROPONIN-I < 0.017 ng/mL (0.000-0.060)
[2020-03-01 02:53] LABS: UDS - AMPHET NEGATIVE QUAL (NEGATIVE); UDS - BARB NEGATIVE QUAL (NEGATIVE); UDS - BENZO NEGATIVE QUAL (NEGATIVE); UDS - COCAINE NEGATIVE QUAL (NEGATIVE); UDS - OPIATE NEGATIVE QUAL (NEGATIVE); UDS - PCP NEGATIVE QUAL (NEGATIVE); UDS - THC NEGATIVE QUAL (NEGATIVE)
--- NOTE | 2020-03-01 07:00 | NUR ---
REPORT RECIEVED, SHIFT ASSESSMENT COMPLETE, PT IS SEDATED ON VENT, FOLLOWS COMMANDS, ON 100% FIO2 WITH 97% O2 SAT. ALL PPP, ORAL CARE PROVIDED, WILL CON'T TO MONITOR
[2020-03-01 08:18] LABS: CKMB 1.6 U/L (0.0-3.6); CREATINE KINASE 141 UL (21-232)
[2020-03-01 08:47] LABS: PHOSPHOROUS 3.5 mg/dL (2.5-4.9)
[2020-03-01 08:52] LABS: TROPONIN-I 0.173 ng/mL (0.000-0.060)
--- NOTE | 2020-03-01 09:00 | NUR ---
SON AT BEDSIDE, UPDATE GIVEN
--- NOTE | 2020-03-01 11:15 | NUR ---
REASSESSMENT COMPLETE, NO CHANGES NOTED, WILL CON'T TO MONITOR
--- NOTE | 2020-03-01 13:00 | NUR ---
OGT PLACED AT THIS TIME, PT TOLERATED WELL
[2020-03-01 14:26] LABS: CKMB 1.5 U/L (0.0-3.6); CREATINE KINASE 159 UL (21-232)
[2020-03-01 14:36] LABS: TROPONIN-I 0.154 ng/mL (0.000-0.060)
--- NOTE | 2020-03-01 15:16 | NUR ---
REASSESSMENT COMPLETE, NO CHANGES NOTED, VSS, WILL CON'T TO MONITOR
--- NOTE | 2020-03-01 17:10 | NUR ---
REPOSITIONED FOR COMFORT, ORAL CARE PROVIDED
--- NOTE | 2020-03-01 19:55 | NUR ---
RECEIVED CARE OF PATIENT, ASSESSMENT PER FLOWSHEET. HR SR ON CM, PPP, SEDATED ON VENT, AROUSES TO VOICE AND FOLLOWS COMMANDS.
[2020-03-02] VITALS (23 sets, daily range): BP systolic 121–155; BP diastolic 69–86
--- NOTE | 2020-03-02 00:55 | NUR ---
ORAL CARE AND SUCTIONING PROVIDED, REMAINS SR/ST ON CM, POSITIONED FOR COMFORT.
[2020-03-02 03:39] LABS: BASOPHILS 0.3 % (0-2); EOSINOPHILS 2.6 % (0-7); HEMATOCRIT 45.4 % (42.0-54.0); HEMOGLOBIN 14.4 g/dL (13.5-17.5); IMMATURE GRANULOCYTES 0.3 % (0-5); LYMPHOCYTES 30.3 % (15-50); MCH 27.9 pg (26.0-34.0); MCHC 31.7 g/dL (31.0-37.0); MCV 87.8 fL (80.0-100.0); MEAN PLATELET VOLUME 11.4 fL (7.4-10.4); MONOCYTES 9.4 % (2-11); NEUTROPHILS 57.1 % (40-80); PLATELET COUNT 133 10x3/uL (130-400); RBC 5.17 10x6/uL (4.20-6.10); RDW 14.2 % (11.5-14.5); WBC 7.3 10x3/uL (4.8-10.8)
[2020-03-02 03:53] LABS: CALCIUM 8.2 mg/dL (8.5-10.1); CARBON DIOXIDE 26.9 mmol/L (21.0-32.0); CHLORIDE - SERUM 104 mmol/L (98-107); MAGNESIUM - SERUM 1.8 mg/dL (1.8-2.4); PHOSPHOROUS 3.6 mg/dL (2.5-4.9); POTASSIUM - SERUM 3.9 mmol/L (3.5-5.1); SODIUM 137 mmol/L (136-145); UREA NITROGEN 18 mg/dL (7-18); eGFR NON AFRICAN AMERICAN 85 mL/min (90-120)
[2020-03-02 03:58] LABS: CALC OSMOLALITY 277 mosm/kg (275-300); GLUCOSE 130 mg/dL (74-106)
--- NOTE | 2020-03-02 04:40 | NUR ---
NO VISITORS PRESENT AT THIS TIME, VSS, CONT POC.
--- NOTE | 2020-03-02 05:40 | NUR ---
NO VISITORS PRESENT AT THIS TIME, VSS, CONT TO MONITOR.
--- NOTE | 2020-03-02 09:44 | NUR ---
0700 REPORT RECIEVED AND CARE ASSUMED OF PATIENT.. ORALLY INTUBATED AND SEDATED SEE FLOW SHEE FOR SHIFT ASSESMENT FINDINGS 0847 DR GOLDBERG IN TO SEE PATIENT.. UPDATE IS GIVEN..
--- NOTE | 2020-03-02 13:43 | NUR ---
0930 MEDS GIVEN 1030 PT SELF EXTUBATED... PLACED ON BIPAP O2 BY RT 50% FIO2 1100 TOLERATING BIPAP WELL .. AWAKE AND APPROPRIATE
--- NOTE | 2020-03-02 14:04 | NUR ---
[address] GOLDBERG ORDER.. 1000 AWAKE AND FOLLOWING COMMANDS.. 1030 PT PLACED ON CPAP BY RT.. 1050 RESPIRATIONS ARE 26 AND PT IS VERY RESTLESS 1100 PLACED BACK ON VENT BY RT PREVIOUS SETTINGS AND SEDATION IS RESUMED.. 1200 DAUGHTER IS AT BEDSIDE UPDATE IS GIVEN.. 1230 DR AKBAR IN TO SEE PATIENT.. UPDATE GIVEN.. 1240 REPOSITIONED ORAL CARE GIVEN.. 1400 WIHTOUT CHANGES
--- NOTE | 2020-03-02 16:06 | NUR ---
1500 PT IS WIHTOUT CHANGES CONTINUES ON VENT.. 1530 I AND O DONE
--- NOTE | 2020-03-02 17:44 | NUR ---
1630 PT IS WITHOUT CHANGES..
--- NOTE | 2020-03-02 19:00 | NUR ---
HEAD TO TOE ASSEMENT COMPLETED. PT AWAKENS TO VOICE, REMAINS CALM ON VENT. ETT 28 TO OUTER LIP LINE. FINE CRAKLES NOTED IN UPPER LOBES. +2 EDEMA NOTED TO UPPER ARMS. FOUND PIV IN BED. 20G PIV NOTED IN LEFT FOREARM WITH PROPOFOL AND NS INFUSING. REPOSITIONED FOR COMFORT. CALL LIGHT IN REACH. BED LOW, WITH SIDE RAILS RAISED.
--- NOTE | 2020-03-02 21:00 | NUR ---
REPOSITIONED FOR COMFORT. PROVIDED ORAL CARE. FSBG 104- NO INSULIN NEEDED PER ORDERS. DAUGHTER CALLED - UPDATED CONDITION AND ANSWERED QUESTIONS.
--- NOTE | 2020-03-02 23:00 | NUR ---
REASSESSMENT COMPLETED. COARSE CRACKLES NOTED THROUGHOUT ALL LUNG CANO. STOPPED NS AT 125. PT HAS THICK COPIOUS SECRETIONS, AND VENT ASYNCRONY. INCREASED PROPFOL TO 30 MCG PER ORDER. REPOSITIONED.
[2020-03-03] VITALS (23 sets, daily range): BP systolic 107–155; BP diastolic 56–94
--- NOTE | 2020-03-03 00:30 | NUR ---
PT CONTINUES TO HAVE VENTILATOR ASYNCRONY- INCREASED PROPFOL TO 35 MCG PER ORDER. REPOSITIONED AND PROVIDED ORAL CARE.
--- NOTE | 2020-03-03 03:00 | NUR ---
REASSESSMENT COMPLETE. PATIENT SEDATED BUT BECOMES AWAKE BY NAME, AND FOLLOWS COMMANDS. REPOSITIONED AND PROVIDED ORAL CARE.
[2020-03-03 03:47] LABS: BASOPHILS 0.2 % (0-2); HEMATOCRIT 42.9 % (42.0-54.0); HEMOGLOBIN 13.6 g/dL (13.5-17.5); IMMATURE GRANULOCYTES 0.4 % (0-5); LYMPHOCYTES 22.7 % (15-50); MCH 27.9 pg (26.0-34.0); MCHC 31.7 g/dL (31.0-37.0); MCV 87.9 fL (80.0-100.0); MEAN PLATELET VOLUME 10.8 fL (7.4-10.4); MONOCYTES 10.5 % (2-11); NEUTROPHILS 63.2 % (40-80); PLATELET COUNT 135 10x3/uL (130-400); RBC 4.88 10x6/uL (4.20-6.10); RDW 14.6 % (11.5-14.5); WBC 8.1 10x3/uL (4.8-10.8)
--- NOTE | 2020-03-03 04:30 | NUR ---
PROVIDED COMPLETE BEDBATH WITH CHG, AND CLEANED INCONTINENT STOOL. PT DESATS WITH LITTLE MOTION. HAS THICK COPIOUS SECRETIONS THAT ARE FERRELL/GREEN. SUCTIONED ORALLY AND INLINE. REPOSITIONED.
[2020-03-03 04:33] LABS: CALC OSMOLALITY 269 mosm/kg (275-300); CALCIUM 8.7 mg/dL (8.5-10.1); CARBON DIOXIDE 24.2 mmol/L (21.0-32.0); CHLORIDE - SERUM 102 mmol/L (98-107); CREATININE - SERUM 0.9 mg/dL (0.6-1.3); GLUCOSE 118 mg/dL (74-106); MAGNESIUM - SERUM 1.9 mg/dL (1.8-2.4); PHOSPHOROUS 3.5 mg/dL (2.5-4.9); SODIUM 135 mmol/L (136-145); UREA NITROGEN 11 mg/dL (7-18); eGFR NON AFRICAN AMERICAN > 90 mL/min (90-120)
--- NOTE | 2020-03-03 08:21 | NUR ---
0700 REPORT RECIEVED AND CARE ASSUMED OF PATIENT.. PT IS ORALLY INTUBATED AND SEDATED.. ON VENT.. SEE SHIFT ASSESMENT FOR FINDINGS..
--- NOTE | 2020-03-03 11:33 | NUR ---
0900 MEDS GIVEN.. VSS 1000 DR GOLDBERG IN TO SEE PATIENT AND UPDATE GIVEN.. CXR ORDERED.. 1015 CXR DONE .. ORDER FOR BRONCHOSCOPY RECIEVED ... RT INFORMED 1020 SON CALLED AND UPDATE GIVEN.. 1045 BRONCH AT BEDSIDE.. PT TOLERATED WELL 1130 DR AKBAR IN TO SEE PATIENT.. UPDATE GIVEN..
[2020-03-03 11:48] LABS: HIV 1 & 2- RAPID SCREEN NEGATIVE (NEGATIVE)
--- NOTE | 2020-03-03 13:41 | NUR ---
1230 SON AT BEDSIDE UPDATE GIVEN 1330 SEDATION TURNED OFF PER RT ORDER FROM Jordy GOLDBERG FOR CPAP TRIAL
--- NOTE | 2020-03-03 14:59 | NUR ---
1350 PLACED ON CPAP PER RT 1400 TOLERATING CPAP WELL 1500 PT EXTUBATED BY RT PER DR GOLDBERG TO 75% BIPAP
--- NOTE | 2020-03-03 15:41 | NUR ---
1530 TEMP 102.9 CULTURES ORDERED AND URINE OBTAINED FOR URIN CULTURE I AND O DONE AT THIS TIME..
--- NOTE | 2020-03-03 17:22 | NUR ---
1600 BIPAP O2 PT TOLERATING WELL 1700 O2 CHANGED TO HI FLOW O2 DELIVERY BY RT
--- NOTE | 2020-03-03 18:03 | NUR ---
1800 PT IS WATCHING TV NO C/O AT THIS TIME COUGHING WHITE SPUTUM INTO YANKEUR SUCTION
--- NOTE | 2020-03-03 19:00 | NUR ---
PT IS LAYING IN BED A&OX4. VSS. RT IS IN ROOM RIGHT NOW GIVING BREATHING TX. HE ASSITED ME IN PULLING PT UP TO HEAD OF BED AND RESPOTIONED FOR COMFORT. WILL PERFORM FULL ASSESSMENT AND DOC IN FLOW SHEET. HE VOICES"NO" TO PAIN. HE ALSO CAN SUCTION HIS SELF WHEN COUGHING UP SECREATIONS. LINDSAY CATHTETOR IS DRAINING DARK GREEN TING COLORED URINE. PT HAD BEEN ON DIPRIVAN DRIP PREVIOUSLY TODAY. WILL TEACH TO USE INCENTIVE SPIROMITOR AND DOC IN FLOW SHEET. BED IS LOW,SIDE RAILSX2,CALL LGIHT WITHIN REACH. WILL CONITNUE TO MONITOR
--- NOTE | 2020-03-03 20:57 | NUR ---
PT IS AWAKE WATCHING TV, HE HAS SLIDEN DOWN IN BED AGAIN. HAD HELP TO ASSIT PULLING UP IN BED AND RESPOSITIONG FOR COMFORT. PT TOLERATED WELL WLITH NO C/O. HE VOICES"IM HUNGY, I WISH I COULD EAT" I EDUCATED TO HIM WHY HE IS NPO AT THIS TIME. HE VERABLZIED UNDERSTANDING. NO OTHER NEEDS VOICED AT THIS TIME. VSS. BED IS LOW,SIDE RAISLX2,CALL LIGHT WITHIN REACH. WILLCONINTUE TO LAURA
--- NOTE | 2020-03-03 21:07 | NUR ---
CHECKED PT BS. IT IS 116, NO COVERAGE NEEDED. I ASKED PT IF I COULD GET HIM CLEANED UP AND VOICED"I DONT WANT TO". TRIED TO ENCOURAGE AND HE VOICED"MAYBE LATER". I WILL TRY ASKING LATER. VSS. BED ISLOW,SIDE RAISLX2,CALL LIGHT WITHIN REACH. WILL CONITNUE TO MONITOR
--- NOTE | 2020-03-03 23:15 | NUR ---
PT IS RESTING IN BED WITH EYES CLOSED. VSS. WILL PERFORM RE-ASSESSMENT AND DOC IN FLOW SHEET. BED IS LOW,SIDE RAISLX2,CALL LIGHT WITHIN REACH.
[2020-03-04] VITALS (24 sets, daily range): BP systolic 100–166; BP diastolic 53–116
--- NOTE | 2020-03-04 00:15 | NUR ---
APON CHECKING ON PT I NOTICED THAT HIS LEFT FORARM IV HAD INFILTRATED. PT VOICED "NO" THAT IT DID NOT HURT. I D/C C CATHETOR INTACT. INSERTED NEW 22G IN THE LEFT WRIST ON SECOND ATTEMP. PT TOLERATED WELL WITH NO C/O. VSS. I ALSO ENCOURAGED PT TO LET ME GIVE HIS UPPER HALF OF HIS BODY A WIPE DOWN AND HE AGGREED. CLEANED HIS TORSO UP WITH HCG. APPLIED NEW GOWN AND CHANGED HALF OF THE LINENS AND APPLIED DEODARANT. REPOSITIONED FOR COMFORT BED WAS LEFT LOW,SIDE RAISLX2, CALL LIGHT WTIHIN REACH. WILL CONITNUE TO MONITOR
--- NOTE | 2020-03-04 02:08 | NUR ---
PT IS RESTING IN BED COUGHING STUFF UP AND SUCTIONING HIMSELF. HIS VSS. HE VOICES NO NEEDS OR C/O. BED IS LOW,SIDE RAISLX2,CALL LIGHT WITHIN REACH. WILL CONITINUE TO MONITOR
[2020-03-04 03:48] LABS: BASOPHILS 0.2 % (0-2); EOSINOPHILS 1.5 % (0-7); HEMATOCRIT 45.7 % (42.0-54.0); HEMOGLOBIN 14.5 g/dL (13.5-17.5); IMMATURE GRANULOCYTES 0.3 % (0-5); LYMPHOCYTES 16.9 % (15-50); MCH 27.8 pg (26.0-34.0); MCHC 31.7 g/dL (31.0-37.0); MCV 87.5 fL (80.0-100.0); MEAN PLATELET VOLUME 10.6 fL (7.4-10.4); MONOCYTES 4.7 % (2-11); NEUTROPHILS 76.4 % (40-80); PLATELET COUNT 134 10x3/uL (130-400); RBC 5.22 10x6/uL (4.20-6.10); RDW 14.2 % (11.5-14.5); WBC 9.9 10x3/uL (4.8-10.8)
[2020-03-04 03:59] LABS: CARBON DIOXIDE 27.8 mmol/L (21.0-32.0); PHOSPHOROUS 3.8 mg/dL (2.5-4.9); POTASSIUM - SERUM 3.8 mmol/L (3.5-5.1)
[2020-03-04 04:04] LABS: CREATININE - SERUM 1.2 mg/dL (0.6-1.3)
--- NOTE | 2020-03-04 04:58 | NUR ---
PT IS RESTING IN BED. VSS. REPOSITONED FOR COMFORT. PT VOICED"THANK YOU". BED IS LOW,SIDE RAISLX2,CALL LIGHT WITHIN REACH. WILL CONINTUE TO MONITOR
--- NOTE | 2020-03-04 06:17 | NUR ---
PT IS RESTING IN BED WITH EYES CLOSED. VSS. APON AWAKING HE VOICES NO CONCERNS OR NEEDS AT THIS TIME. BED IS LOW,SIDE RAISLX2,CALL LIGHT WITHIN REACH. WILL CONITNUE TO MONITOR
--- NOTE | 2020-03-04 09:20 | NUR ---
Nutrition follow-up: Pt extubated 03/04; NPO Speech eval pending Labs reviewed RDN following
--- NOTE | 2020-03-04 19:25 | NUR ---
SHIFT ASSESSMENT DONE. PATIENT DENIES ANY NEEDS AT THIS TIME. CALL LIGHT WITHIN REACH, BED IN LOW POSITION, AND WILL CONTINUE TO MONITOR.
--- NOTE | 2020-03-04 21:09 | NUR ---
PATIENT C/O OF HEADACHE FOR 2 DAYS. TYLENOL SUPPOSITORY GIVEN PER ORDER. CALL LIGHT WITHIN REACH, BED IN LOW POSITION, AND WILL CONTINUE TO MONITOR.
--- NOTE | 2020-03-04 22:15 | NUR ---
PATIENT IS SLEEPING AT THIS TIME.
--- NOTE | 2020-03-04 23:00 | NUR ---
REASSESSMENT COMPLETE. PATIENT DENIES ANY NEEDS STATES HEADACHE IS BETTER. CALL LIGHT WITHIN REACH, BED IN LOW POSITION, AND WILL CONTINUE TO MONITOR.
[2020-03-05] VITALS (11 sets, daily range): BP systolic 104–140; BP diastolic 73–91
--- NOTE | 2020-03-05 01:00 | NUR ---
NO CHANGES IN PATIENT CONDITION. CALL LIGHT WITHIN REACH, BED IN LOW POSITION, AND WILL CONTINUE TO MONITOR.
--- NOTE | 2020-03-05 03:00 | NUR ---
REASSESSMENT COMPLETE. NO CHANGES. CALL LIGHT WITHIN REACH, BED IN LOW POSITION, AND WILL CONTINUE TO MONITOR.
[2020-03-05 03:49] LABS: BASOPHILS 0.4 % (0-2); EOSINOPHILS 4.6 % (0-7); HEMATOCRIT 46.3 % (42.0-54.0); HEMOGLOBIN 14.6 g/dL (13.5-17.5); IMMATURE GRANULOCYTES 0.4 % (0-5); LYMPHOCYTES 23.7 % (15-50); MCH 27.8 pg (26.0-34.0); MCHC 31.5 g/dL (31.0-37.0); MCV 88.2 fL (80.0-100.0); MEAN PLATELET VOLUME 11.2 fL (7.4-10.4); MONOCYTES 9.6 % (2-11); NEUTROPHILS 61.3 % (40-80); RBC 5.25 10x6/uL (4.20-6.10); RDW 14.2 % (11.5-14.5)
[2020-03-05 03:51] LABS: PLATELET COUNT 164 10x3/uL (130-400)
[2020-03-05 04:07] LABS: CALC OSMOLALITY 275 mosm/kg (275-300); CALCIUM 9.4 mg/dL (8.5-10.1); CARBON DIOXIDE 28.6 mmol/L (21.0-32.0); CHLORIDE - SERUM 99 mmol/L (98-107); GLUCOSE 94 mg/dL (74-106); MAGNESIUM - SERUM 2.2 mg/dL (1.8-2.4); PHOSPHOROUS 3.3 mg/dL (2.5-4.9); POTASSIUM - SERUM 4.1 mmol/L (3.5-5.1); SODIUM 137 mmol/L (136-145); eGFR NON AFRICAN AMERICAN 85 mL/min (90-120)
[2020-03-05 04:13] LABS: UREA NITROGEN 19 mg/dL (7-18)
--- NOTE | 2020-03-05 05:55 | NUR ---
PATIENT PULLED IV OUT SITE WITHOUT REDNESS OR EDEMA NOTED. SITE IS NOT BLEEDING.
--- NOTE | 2020-03-05 07:00 | NUR ---
REPORT RECIEVED, SHIFT ASSESSMENT COMPLETE, PT IS ALERT AND ORIENTED, ON 9L HFNC WITH 97% O2 SAT. ALL PPP, VSS, CALL LIGHT IN REACH
--- NOTE | 2020-03-05 07:18 | NUR ---
TRIED TO RESTART IV X 2 STICKS WITH ASEPTIC TECH USED AND UNABLE TO GET IV AT THIS TIME.
--- NOTE | 2020-03-05 09:00 | NUR ---
PT LINDSAY DC'D AT THIS TIME, PT TOLERATED WELL,
--- NOTE | 2020-03-05 09:30 | NUR ---
UPTO CHAIR AT THIS TIME, PT TOLERATED WELL
--- NOTE | 2020-03-05 11:00 | NUR ---
DR. DINH AT BEDSIDE, UPATE GIVEN, NEW ORDERS RECIEVED
--- NOTE | 2020-03-05 13:00 | NUR ---
PT RESTING AT THIS TIME, NO NEEDS NOTED, VSS, CALL LIGHT IN REACH
[2020-03-05 13:45] LABS: BASOPHILS 0.3 % (0-2); EOSINOPHILS 5.4 % (0-7); HEMATOCRIT 47.2 % (42.0-54.0); HEMOGLOBIN 14.9 g/dL (13.5-17.5); IMMATURE GRANULOCYTES 0.7 % (0-5); LYMPHOCYTES 23.1 % (15-50); MCH 27.9 pg (26.0-34.0); MCHC 31.6 g/dL (31.0-37.0); MCV 88.4 fL (80.0-100.0); MEAN PLATELET VOLUME 10.7 fL (7.4-10.4); MONOCYTES 7.3 % (2-11); NEUTROPHILS 63.2 % (40-80); PLATELET COUNT 166 10x3/uL (130-400); RBC 5.34 10x6/uL (4.20-6.10); RDW 14.1 % (11.5-14.5); WBC 6.1 10x3/uL (4.8-10.8)
[2020-03-05 14:18] LABS: CALC OSMOLALITY 278 mosm/kg (275-300); CALCIUM 9.3 mg/dL (8.5-10.1); CHLORIDE - SERUM 100 mmol/L (98-107); CREATININE - SERUM 1.1 mg/dL (0.6-1.3); GLUCOSE 131 mg/dL (74-106); POTASSIUM - SERUM 3.9 mmol/L (3.5-5.1); SODIUM 137 mmol/L (136-145); UREA NITROGEN 21 mg/dL (7-18); eGFR NON AFRICAN AMERICAN 76 mL/min (90-120)
--- NOTE | 2020-03-05 15:11 | NUR ---
NO NEEDS NOTED AT THIS TIME, PT AWAKE WATCHING TV, VSS, CALL LIGHT IN REACH
--- NOTE | 2020-03-05 17:16 | NUR ---
REPORT CALLED TO MED2 AT THIS TIME, PT TRANSFERRED VIA WHEELCHAIR
--- NOTE | 2020-03-05 17:25 | NUR ---
OT NOTE: PT COMPLETED BED MOB TASKS WITH MIN A. PT COMPLETED FACE HYGIENE WITH SETUP. [phone] THANK YOU,SHAYNE CHAPIN
--- NOTE | 2020-03-05 18:00 | NUR ---
PT TO ROOM FROM ICU VIA WHEELCHAIR. DINNER TRAY BROUGHT DOWN WITH HIM, SON IN ROOM. NO COMPLAINTS AT PRESENT. PT WITH EQUAL AND STRONG EJ PACKER, NO DEFICITS NOTED.
--- NOTE | 2020-03-05 19:00 | NUR ---
REPORT RECEIVED, WILL CONTINUE POC. PATIENT IS AAOX4, UP IN ROOM. PATIENT STATES HE WAS TURNING ON A/C BEFORE GOING TO THE BATHROOM. EDUCATED PATIENT ON USE OF CALL LIGHT FOR ASSISTANCE HE WAS A LITTLE UNSTEADY ON HIS FEET. PATIENT STATES HE UNDESTANDS. NO S/S OF DISTRESS OBSERVED, RR EVEN AND UNLABORED ON 3.5L O2 VIA NC. PIV TO RT HAND, SL. PATIENT DENIES NEEDS AT THIS TIME. CL IN REACH, BED LOCKED AND LOWERED. WILL CTM.
[2020-03-06 00:12] VITALS: BP 135/79
--- NOTE | 2020-03-06 02:37 | NUR ---
I have reviewed this patient and I concur with the Shift Assessment completed by the Licensed Practical Nurse today this shift.
[2020-03-06 04:55] VITALS: BP 114/68
--- NOTE | 2020-03-06 06:16 | NUR ---
PATIENT FSBS 135 NO COVERAGE NEEDED
[2020-03-06 06:46] LABS: BASOPHILS 0.6 % (0-2); EOSINOPHILS 6.4 % (0-7); HEMATOCRIT 46.7 % (42.0-54.0); IMMATURE GRANULOCYTES 0.7 % (0-5); LYMPHOCYTES 25.3 % (15-50); MCH 28.1 pg (26.0-34.0); MCHC 32.1 g/dL (31.0-37.0); MCV 87.5 fL (80.0-100.0); MEAN PLATELET VOLUME 10.7 fL (7.4-10.4); MONOCYTES 11.7 % (2-11); NEUTROPHILS 55.3 % (40-80); PLATELET COUNT 179 10x3/uL (130-400); RBC 5.34 10x6/uL (4.20-6.10); WBC 5.5 10x3/uL (4.8-10.8)
[2020-03-06 07:15] LABS: CALC OSMOLALITY 279 mosm/kg (275-300); CALCIUM 9.4 mg/dL (8.5-10.1); CARBON DIOXIDE 29.9 mmol/L (21.0-32.0); CHLORIDE - SERUM 101 mmol/L (98-107); CREATININE - SERUM 0.9 mg/dL (0.6-1.3); GLUCOSE 114 mg/dL (74-106); POTASSIUM - SERUM 3.7 mmol/L (3.5-5.1); SODIUM 138 mmol/L (136-145); UREA NITROGEN 22 mg/dL (7-18); eGFR NON AFRICAN AMERICAN > 90 mL/min (90-120)
--- NOTE | 2020-03-06 08:00 | NUR ---
PT RECEIVED AWAKE AND ALERT SITTING ON SIDE OF BED. ASKING IF HE GETS TO GO HOME TODAY. NO COMPLAINTS AT PRESENT. OXYGEN STILL IN USE VIA NC.
[2020-03-06 09:53] VITALS: BP 103/79
--- NOTE | 2020-03-06 11:07 | NUR ---
PT STATES HE IS GOING OUTSIDE TO SMOKE NO MATTER WHAT OR HE WILL DO IT IN ROOM. HAD HIM SIGN A RELEASE FORM AND EXPLAINED RISK INCLUDING INJURY, FALL, IV REMOVAL, MISSING DOCTOR ROUNDS OR PROCEDURES.
[2020-03-06 11:09] LABS: FUNGUS STAIN Final report (())
--- NOTE | 2020-03-06 12:00 | MORECARE ---
CASE MANAGEMENT DISCHARGE SUMMARY PATIENT: ALBERTO WOMACK UNIT: [id number] ADM DATE: 02/29/20 AGE: 49 : 72 SEX: M ROOM/BED: D.2102 AUTHOR: KALEB CUEVAS PHYSICIAN: REFERRING PHYSICIAN: MONI AKBAR MD DATE OF SERVICE: 03/06/20 Discharge Plan Patient Name: ALBERTO WOMACK [facility] [facility] 1970 Planned Disposition: Home Anticipated Discharge Date: Discharge Date: Expected LOS: Initial Reviewer: [email or web address] Initial Review Date: 03/06/2020 Generated: 03/06/20 12:59 pm DCPIA - Discharge Planning Initial Assessment Updated by [email or web address]: Siena Vu on 03/06/20 11:57 am * Is the patient Alert and Oriented? Yes * How many steps to enter\exit or inside your home? 2/0 * PCP Dr. Neumann in [place] * [facility] in [place] * Preadmission Environment Home with Family * ADLs Independent * Equipment None * List name and contact numbers for known caregivers / representatives who currently or will assist patient after discharge: Li Martini - friend - [phone] Tulio Womack - son [phone] * Verbal permission to speak to the caregivers and representatives has been obtained from the patient. Yes * Community resources currently utilized None * Additional services required to return to the preadmission environment? No * Can the patient safely return to the preadmission environment? Yes * Has this patient been hospitalized within the prior 30 days at any hospital? Yes Patient Name: ALBERTO WOMACK Page [id number] at 1200 All edits/amendments must be made on the electronic document DICTATION DATE: 03/06/20 1200 GERIATRICIAN: MELISSA 03/06/20 1200 RPT#: [id number] DC DATE: STATUS: ADM IN [facility] [address] [place] [address] END OF REPORT
--- NOTE | 2020-03-06 12:07 | MORECARE ---
CASE MANAGEMENT DISCHARGE SUMMARY PATIENT: ALBERTO WOMACK UNIT: [id number] ADM DATE: 02/29/20 AGE: 49 : 72 SEX: M ROOM/BED: D.2102 AUTHOR: MASON,DOC PHYSICIAN: REFERRING PHYSICIAN: MONI AKBAR MD DATE OF SERVICE: 03/06/20 Discharge Plan Patient Name: ALBERTO WOMACK Facility: [facility]:[place] : 1970 Planned Disposition: Home Anticipated Discharge Date: Discharge Date: Expected LOS: Initial Reviewer: [email or web address] Initial Review Date: 03/06/2020 Generated: 03/06/20 1:06 pm Comments DCP- Discharge Planning Updated by [email or web address]: Siena Vu on 03/06/20 11:[address] Patient Name: ALBERTO WOMACK Admission Status: ER Accout number: [id number] Admission Date: 02-29-2020 : 1970 Admission Diagnosis:CEREBRAL INFARCTION, UNSPECIFIED Attending: MONI AKBAR Current LOS: 6 Anticipated DC Date: Planned Disposition: Home Primary Insurance: [employer] Discharge Planning Comments: CM met with patient to complete initial dc planning assessment. CM educated patient on the CM role and verbal consent given by patient to complete assessment. Patient lives at home with a friend, Li Martini. At discharge patient plans to return and feels this is a safe discharge. CM discussed availability of home health, rehab services, and medical equipment. Patient denied known discharge needs at this time. I informed him that PT/OT/ST recommend inpatient rehab and he declines. I informed him that home health can do PT/OT/ST as well and he continues to decline home health. He states he will get a cane for stability if needed. He does not want any DME from case management. He is not wearing oxygen at this time. States his adult son, or daughter (Ana Cristina Estes) will transport him home. CM will continue to follow and will assist as needed with dc plans/needs. Cable Tool Operator: Siena Vu DCPIA - Discharge Planning Initial Assessment Updated by [email or web address]: Siena Vu on 03/06/20 11:57 am * Is the patient Alert and Oriented? Yes * How many steps to enter\exit or inside your home? 2/0 * PCP Dr. Neumann in [place] * [facility] in [place] * Preadmission Environment Home with Family * ADLs Independent * Equipment None * List name and contact numbers for known caregivers / representatives who currently or will assist patient after discharge: Li Martini - friend - [phone] Tulio Womack - son [phone] * Verbal permission to speak to the caregivers and representatives has been obtained from the patient. Yes * Community resources currently utilized None * Additional services required to return to the preadmission environment? No * Can the patient safely return to the preadmission environment? Yes * Has this patient been hospitalized within the prior 30 days at any hospital? Yes Coverage Notice Reviewer: [email or web address] Marky Vu Notice Issued Date-Time: 03/06/2020 12:00 Notice Type: Patient Choice Letter Notice Delivered To: Patient Relationship to Patient: Self Bender Machine Operator Name: Delivery Method: HAND - Hand Delivered Deidre Days: Prior Verbal Notification: Recipient Understood Notice: Yes Recipient Signature: Yes Med Rec Note Co-signed by Attending: Coverage Notice Comment: ARIANNE for declination for home health or inpatient rehab signed Reviewer: [email or web address] Vu Notice Issued Date-Time: 03/06/2020 12:00 Notice Type: IM Discharge Notice Notice Delivered To: Patient Relationship to Patient: Self Bender Machine Operator Name: Delivery Method: HAND - Hand Delivered Deidre Days: Prior Verbal Notification: Recipient Understood Notice: Yes Recipient Signature: Yes Med Rec Note Co-signed by Attending: Coverage Notice Comment: IMM explained, signed, given, copy placed in MR Last DP export: 03/06/20 11:00 a Patient Name: ALBERTO WOMACK Page [id number] at 1207 All edits/amendments must be made on the electronic document DICTATION DATE: 03/06/20 1206 DRIER TENDER NAPHTHALENE: MELISSA 03/06/20 1206 RPT#: [id number] DC DATE: STATUS: ADM IN [facility] [address] [place] [address] END OF REPORT
--- NOTE | 2020-03-06 13:27 | NUR ---
OT NOTE: PT SEEN IN AM. PT DRESSED; CONT TO REQUEST TO GO HOME. REMAINS SLIGHTLY IMPULSIVE..DYNAMIC STANDING BALANCE FAIR.. PT ABLE TO AMB IN ROOM WITH CGA/MIN ASSIST FOR BALANCE; OCCASSIONAL SCISSORING NOTED FOR LONGER DISTANCES. PT RESISTANT TO USE OF WALKER, THOUGH IT WOULD BE MORE SAFE. PT CONT TO STATE THAT THE REASON HE IS UNSTEADY IS BECAUSE HE HAS BEEN IN THE BED FOR 6 DAYS. PT IS ORIENTED X 3 BUT DOES NOT REALIZE THAT HE HAS ANY DEFECITS. HIS GAIT IS ONLY SLIGHTLY UNSTEADY, BUT PT REMAINS A HIGH RISK FOR FALLS. PT COMPLETELY RESISTANT TO IP REHAB, BUT DO NOT FEEL PT IS SAFE TO RETURN HOME INDEP. ADONAY SINHA, OTR/L [phone]
[2020-03-06 13:33] VITALS: BP 124/71
--- NOTE | 2020-03-06 16:14 | NUR ---
OT NOTE: PT IS EASILY FATIGUED WITH MIN/MODERATE TAXING ACTIVITIES. PT COMPLETED SUPINE TO SIT WITH SBA. PT COMPLETED ADL MOB WITH SBA/CGA. PT STATED HE WANTS A CANE UPON DISCHARGE. PT COMPLETED DYNAMIC SITTING BALANCE AT EOB WHILE SERGIO/DOFFING SHOES WITH SBA. [phone] RENÉE REYES COTA
--- NOTE | 2020-03-06 19:45 | NUR ---
REPORT RECEIVED AND ROUNDING COMPLETE PATIENT LAYING IN BED, A&O X4, DISSCUSED NPO STATUS AFTER MIDNIGHT, STATES HE UNDERSTNDS. PIV TO THE LEFT HAND THAT IS SALINE LOCKED AT THIS TIME. PIV FLUSHES EASILY WITH NO S/SX OF INFILTRATION. NO DISTRESS NOTED AT THIS TIME. CALL LIGHT WITHIN REACH AND BED IN LOWEST LOCKED POSITION.
[2020-03-06 20:00] VITALS: BP 113/70
[2020-03-07] VITALS: BP 111/72
[2020-03-07 04:00] VITALS: BP 118/76
--- NOTE | 2020-03-07 08:17 | EC ---
PATIENT:ALBERTO ALLAN DATE OF SERVICE: 02/29/20 SEX: M MEDICAL RECORD: [id number] DATE OF : [birth year] LOCATION:D.M2 D.210 AGE OF PATIENT: 49 ADMISSION DATE: 02/29/20 REFERRING PHYSICIAN: INTERPRETING PHYSICIAN: EAMON ARAGON MD ECHOCARDIOGRAM REPORT ECHO CHARGES 4 ECHO COMPLETE Date: 02/29/20 CLINICAL DIAGNOSIS: CVA ECHOCARDIOGRAPHIC MEASUREMENTS (adult normal given) AC root (d.<3.7cm) 3.3 cm LV Septum d (<1.2 cm> 1.4 cm Valve Excursion 1.4 cm LV Septum (systole) 2.3 cm Left Atria (s.<4.0cm> 3.5 cm LVPW d(<1.2cm) 1.4 cm RV (d.<2.3cm) 3.1 cm LVPW (sytole) 2.4 cm LV diastole(<5.6CM) 4.4 cm MV E-F(>70mm/sec) cm LV systole 1.7 cm LVOT Diameter 2.1 cm MV exc.(>10mm) cm Est.ejection fraction (50-75%) % DOPPLER: LVIT cm/sec A 90.0 cm/sec E 73.0 cm/sec LA cm/sec RVSP 18.0 mmHg LVOT 141 cm/sec AOP1/2T m/s Asc. Ao 147 cm/sec RVOT 106 cm/sec RA cm/sec PA 106 cm/sec AV Gradient Peak 8.6 mmHg AV Mean 5.3 mmHg AV Area 3.1 cm MV Gradient Peak 10.3 mmHg MV Mean 3.6 mmHg MV Area cm COMMENTS: Carton Making Machine Operator: 1 CRISS SULLIVANOE Candle Making Supervisor: 3 Dr. [place] TAPE# PACS Pericardial Effusion N DATE OF SERVICE: Adequate 2D, color flow imaging, spectral Doppler, and M-Mode. LVH is present. LV internal dimension is normal. Wall motion is normal. EF is greater than or equal to 55%. Aortic valve is tricuspid. No evidence of stenosis by Doppler interrogation. Left atrium is normal at 3.5 cm. Mitral valve shows no prolapse. Trace MR. Right-sided chambers are grossly normal. Trace TR. ECHOCARDIOGRAM REPORT [id number] ALBERTO ALLAN TRANSINT:[id number] Voice Confirmation ID: [id number] DOCUMENT ID: [id number] EAMON ARAGON MD at 0817 CC: [id number] DICTATION DATE: 02/29/20 1528 CASTING MACHINE SERVICE OPERATOR: 02/29/[address] [facility] [address] [id number]
[2020-03-07 09:14] VITALS: BP 118/79
--- NOTE | 2020-03-07 10:02 | NUR ---
Nutrition Follow-up: NPO for EGD at time of visit this AM. Good PO intake yesterday (100% x 3 meals). Does not like puree food. Noted plans for possible d/c today. Diet: NPO Wt: 221.2# (03/06); 225.9# (03/04); 232.5# (03/03) Labs reviewed Meds noted: Protonix, electrolyte protocol -Rec resume diet following procedure as medically feasible. -Monitor wt; noted daily wts ordered. -RD following.
[2020-03-07 10:12] VITALS: BP 111/74
--- NOTE | 2020-03-07 10:18 | NUR ---
I have reviewed this patient and I concur with the Shift Assessment completed by the Licensed Practical Nurse today this shift.
[2020-03-07 11:24] LABS: BASOPHILS 0.6 % (0-2); EOSINOPHILS 6.6 % (0-7); HEMATOCRIT 45.3 % (42.0-54.0); HEMOGLOBIN 14.7 g/dL (13.5-17.5); IMMATURE GRANULOCYTES 0.4 % (0-5); LYMPHOCYTES 35.3 % (15-50); MCHC 32.5 g/dL (31.0-37.0); MCV 86.3 fL (80.0-100.0); MEAN PLATELET VOLUME 10.6 fL (7.4-10.4); MONOCYTES 8.3 % (2-11); NEUTROPHILS 48.8 % (40-80); PLATELET COUNT 183 10x3/uL (130-400); RBC 5.25 10x6/uL (4.20-6.10); RDW 13.9 % (11.5-14.5); WBC 5.3 10x3/uL (4.8-10.8)
[2020-03-07 11:34] LABS: CALC OSMOLALITY 276 mosm/kg (275-300); CALCIUM 8.8 mg/dL (8.5-10.1); CARBON DIOXIDE 29.4 mmol/L (21.0-32.0); CHLORIDE - SERUM 101 mmol/L (98-107); CREATININE - SERUM 0.9 mg/dL (0.6-1.3); GLUCOSE 99 mg/dL (74-106); POTASSIUM - SERUM 3.5 mmol/L (3.5-5.1); SODIUM 138 mmol/L (136-145); eGFR NON AFRICAN AMERICAN > 90 mL/min (90-120)
[2020-03-07 11:35] LABS: UREA NITROGEN 16 mg/dL (7-18)
--- NOTE | 2020-03-07 13:11 | NUR ---
OT NOTE: PT UP IN ROOM; PERFORMED ALL ADLS WITHOUT ASSIST; 02 REMOVED AND STATES THAT HE HASNT WORN IT IN A LONG TIME. HAD PT AMB INTO HALLWAY WITH SBA AND NO 02 X 150 FT.. 02 CHECKED CONTINUOUSLY.. STARTED AT 93%..ENDED AT 90%..PT WANTING TO GO HOME ADONAY LUIS, OTR/L [phone]
[2020-03-07 13:45] VITALS: BP 130/82
[2020-03-07] MEDS ORDERED: LISINOPRIL10 MG PO (13:46)
--- NOTE | 2020-03-07 14:32 | MORECARE ---
CASE MANAGEMENT DISCHARGE SUMMARY PATIENT: ALBERTO WOMACK UNIT: [id number] ADM DATE: 02/29/20 AGE: 49 : 72 SEX: M ROOM/BED: D.2102 AUTHOR: MASONDOC PHYSICIAN: REFERRING PHYSICIAN: MONI AKBAR MD DATE OF SERVICE: 03/07/20 Discharge Plan Patient Name: ALBERTO WOMACK Facility: [facility]:[place] : 1970 Planned Disposition: Home Anticipated Discharge Date: Discharge Date: Expected LOS: Initial Reviewer: [id number] Initial Review Date: 03/06/2020 Generated: 03/07/20 3:31 pm Comments DCP- Discharge Planning Updated by [email or web address]: Siena Vu on 03/07/20 1:[address] Patient Name: ALBERTO WOMACK Encounter No: [id number] : 1970 Primary Insurance: NOVASYChicPlaceCR Anticipated DC Date: Planned Disposition: Home External Planned Provider: : DCP follow-up note: Patient and family in agreement with discharge plan. No changes to plan. Case management will follow and assist as needed. Siena Vu DCP- Discharge Planning Updated by [email or web address]: Siena Vu on 03/06/20 11:[address] Patient Name: ALBERTO WOMACK Admission Status: ER Accout number: [id number] Admission Date: 02-29-2020 : 1970 Admission Diagnosis:CEREBRAL INFARCTION, UNSPECIFIED Attending: MONI AKBAR Current LOS: 6 Anticipated DC Date: Planned Disposition: Home Primary Insurance: NOVASYSMCR Discharge Planning Comments: CM met with patient to complete initial dc planning assessment. CM educated patient on the CM role and verbal consent given by patient to complete assessment. Patient lives at home with a friend, Li Martini. At discharge patient plans to return and feels this is a safe discharge. CM discussed availability of home health, rehab services, and medical equipment. Patient denied known discharge needs at this time. I informed him that PT/OT/ST recommend inpatient rehab and he declines. I informed him that home health can do PT/OT/ST as well and he continues to decline home health. He states he will get a cane for stability if needed. He does not want any DME from case management. He is not wearing oxygen at this time. States his adult son, or daughter (Ana Cristina Estes) will transport him home. CM will continue to follow and will assist as needed with dc plans/needs. Farmer Vegetable: Siena Vu DCPIA - Discharge Planning Initial Assessment Updated by [id number]: Siena Vu on 03/06/20 11:57 am * Is the patient Alert and Oriented? Yes * How many steps to enter\exit or inside your home? 2/0 * PCP Dr. Neumann in [place] * [facility] in [place] * Preadmission Environment Home with Family * ADLs Independent * Equipment None * List name and contact numbers for known caregivers / representatives who currently or will assist patient after discharge: Li Martini - friend - [phone] Tulio Womack - son [phone] * Verbal permission to speak to the caregivers and representatives has been obtained from the patient. Yes * Community resources currently utilized None * Additional services required to return to the preadmission environment? No * Can the patient safely return to the preadmission environment? Yes * Has this patient been hospitalized within the prior 30 days at any hospital? Yes Coverage Notice Reviewer: [id number] Marky Vu Notice Issued Date-Time: 03/06/2020 12:00 Notice Type: Patient Choice Letter Notice Delivered To: Patient Relationship to Patient: Self Curtain Cleaner Name: Delivery Method: HAND - Hand Delivered Deidre Days: Prior Verbal Notification: Recipient Understood Notice: Yes Recipient Signature: Yes Med Rec Note Co-signed by Attending: Coverage Notice Comment: ARIANNE for declination for home health or inpatient rehab signed Reviewer: [id number] Marky Vu Notice Issued Date-Time: 03/06/2020 12:00 Notice Type: IM Discharge Notice Notice Delivered To: Patient Relationship to Patient: Self Curtain Cleaner Name: Delivery Method: HAND - Hand Delivered Deidre Days: Prior Verbal Notification: Recipient Understood Notice: Yes Recipient Signature: Yes Med Rec Note Co-signed by Attending: Coverage Notice Comment: IMM explained, signed, given, copy placed in MR Last DP export: 03/06/20 11:06 a Patient Name: ALBERTO WOMACK Page [id number] at 1432 All edits/amendments must be made on the electronic document DICTATION DATE: 03/07/201431 TYPEWRITER ALIGNER: MELISSA 03/07/201431 RPT#: [id number] DC DATE: STATUS: ADM IN [facility] [address] [place] [address] END OF REPORT
--- NOTE | 2020-03-07 14:44 | NUR ---
I CALLED KACIE LINARES [facility]N TO CLARIFY PATIENT GOING HOME ON METFORMIN. REVIEWED THE BLOOD SUGAR LEVELS. SHE STATES FOR THE PATIENT TO RESTART THE METFORMIN.
[2020-03-07] MEDS ORDERED: GLUCOPHAGE500 MG PO (14:57)
--- NOTE | 2020-03-07 15:39 | NUR ---
PT DISCHARGED HOME VIA AMBULATION. REFUSED WHEELCHAIR. PIV REMOVED WITH CATHETER TIP FULLY INTACT. PT SIGNED DISCHARGE INSTRUCTIONS AND REMOVED ALL VALUABLES FROM THE ROOM.
--- NOTE | 2020-03-07 16:40 | NUR ---
OT NOTE: PT COMPLETED ADL MOB WITH SPV. PT COMPLETED DYNAMIC STANDING BALANCE WITH SPV/MOD I. PT COMPLETED HAND HYGIENE AT SINK LEVEL WITH SPV/MOD I. [id number] THANK YOU,SHAYNE CHAPIN
--- NOTE | 2020-03-08 07:06 | MORECARE ---
CASE MANAGEMENT DISCHARGE SUMMARY PATIENT: ALBERTO WOMACK UNIT: [id number] ADM DATE: 02/29/20 AGE: 49 : 72 SEX: M ROOM/BED: D.2102 AUTHOR: MASONDOC PHYSICIAN: REFERRING PHYSICIAN: MONI AKBAR MD DATE OF SERVICE: 03/08/20 Discharge Plan Patient Name: ALBERTO WOMACK Facility: [facility]:[place] : 1970 Planned Disposition: Home Anticipated Discharge Date: Discharge Date: 03/07/2020 Expected LOS: Initial Reviewer: [email or web address] Initial Review Date: 03/06/2020 Generated: 03/08/20 8:05 am Comments DCP- Discharge Planning Updated by [email or web address]: Siena Vu on 03/07/20 1:[address] Patient Name: ALBERTO WOMACK Encounter No: [id number] : 1970 Primary Insurance: NOVASYCR Anticipated DC Date: Planned Disposition: Home External Planned Provider: : DCP follow-up note: Patient and family in agreement with discharge plan. No changes to plan. Case management will follow and assist as needed. Siena Vu DCP- Discharge Planning Updated by [email or web address]: Siena Vu on 03/06/20 11:[address] Patient Name: ALBERTO WOMACK Admission Status: ER Accout number: [id number] Admission Date: 02-29-2020 : 1970 Admission Diagnosis:CEREBRAL INFARCTION, UNSPECIFIED Attending: MONI AKBAR Current LOS: 6 Anticipated DC Date: Planned Disposition: Home Primary Insurance: NOVASYSMCR Discharge Planning Comments: CM met with patient to complete initial dc planning assessment. CM educated patient on the CM role and verbal consent given by patient to complete assessment. Patient lives at home with a friend, Li Martini. At discharge patient plans to return and feels this is a safe discharge. CM discussed availability of home health, rehab services, and medical equipment. Patient denied known discharge needs at this time. I informed him that PT/OT/ST recommend inpatient rehab and he declines. I informed him that home health can do PT/OT/ST as well and he continues to decline home health. He states he will get a cane for stability if needed. He does not want any DME from case management. He is not wearing oxygen at this time. States his adult son, or daughter (Ana Cristina Estes) will transport him home. CM will continue to follow and will assist as needed with dc plans/needs. News Writer: Siena Vu DCPIA - Discharge Planning Initial Assessment Updated by [email or web address]: Siena Vu on 03/06/20 11:57 am * Is the patient Alert and Oriented? Yes * How many steps to enter\exit or inside your home? 2/0 * PCP Dr. Neumann in [place] * [facility] in [place] * Preadmission Environment Home with Family * ADLs Independent * Equipment None * List name and contact numbers for known caregivers / representatives who currently or will assist patient after discharge: Li Martini - friend - [phone] Tulio Womack - son [phone] * Verbal permission to speak to the caregivers and representatives has been obtained from the patient. Yes * Community resources currently utilized None * Additional services required to return to the preadmission environment? No * Can the patient safely return to the preadmission environment? Yes * Has this patient been hospitalized within the prior 30 days at any hospital? Yes External Providers External Provider: DRAKENirmal Next Contact Date: Service Request Date: Service Type: Resolution: Reviewer: Comments: Coverage Notice Reviewer: [id number] Marky Vu Notice Issued Date-Time: 03/06/2020 12:00 Notice Type: Patient Choice Letter Notice Delivered To: Patient Relationship to Patient: Self Foreign Food Specialty Cook Name: Delivery Method: HAND - Hand Delivered Deidre Days: Prior Verbal Notification: Recipient Understood Notice: Yes Recipient Signature: Yes Med Rec Note Co-signed by Attending: Coverage Notice Comment: ARIANNE for declination for home health or inpatient rehab signed Reviewer: [id number] Marky Vu Notice Issued Date-Time: 03/06/2020 12:00 Notice Type: IM Discharge Notice Notice Delivered To: Patient Relationship to Patient: Self Foreign Food Specialty Cook Name: Delivery Method: HAND - Hand Delivered Deidre Days: Prior Verbal Notification: Recipient Understood Notice: Yes Recipient Signature: Yes Med Rec Note Co-signed by Attending: Coverage Notice Comment: IMM explained, signed, given, copy placed in MR Last DP export: 03/07/20 1:32 p Patient Name: ALBERTO WOMACK Page [id number] at 0706 All edits/amendments must be made on the electronic document DICTATION DATE: 03/08/20704 MAINSPRING WINDER: MELISSA 03/08/20704 RPT#: [id number] DC DATE:03/07/20 STATUS: DIS IN [facility] [address] [place] [address] END OF REPORT
--- NOTE | 2020-03-08 07:18 | MORECARE ---
CASE MANAGEMENT DISCHARGE SUMMARY PATIENT: ALBERTO WOMACK UNIT: [id number] ADM DATE: 02/29/20 AGE: 49 : 72 SEX: M ROOM/BED: D.2102 AUTHOR: KALEB CUEVAS PHYSICIAN: REFERRING PHYSICIAN: MONI AKBAR MD DATE OF SERVICE: 03/08/20 Discharge Plan Patient Name: ALBERTO WOMACK Facility: [facility]:[place] : 1970 Planned Disposition: Home Anticipated Discharge Date: Discharge Date: 03/07/2020 Expected LOS: Initial Reviewer: [email or web address] Initial Review Date: 03/06/2020 Generated: 03/08/20 8:18 am Comments DCP- Discharge Planning Updated by [email or web address]: Siena Vu on 03/08/20 6:[address] CM NOTED ORDER FOR NEBULIZER THIS AM. I ATTEMPTED TO CALL PATIENT WITH NO ANSWER. I CALLED LINCCAHTER[facility] AND SPOKE TO COURT AND ORDER AND CHART NOTES FAXED. DCP- Discharge Planning Updated by [email or web address]: Siena Vu on 03/07/20 1:[address] Patient Name: ALBERTO WOMACK Encounter No: [id number] : 1970 Primary Insurance: NOVASYSMCR Anticipated DC Date: Planned Disposition: Home External Planned Provider: : DCP follow-up note: Patient and family in agreement with discharge plan. No changes to plan. Case management will follow and assist as needed. Siena Vu DCP- Discharge Planning Updated by [email or web address]: Siena Vu on 03/06/20 11:[address] Patient Name: ALBERTO WOMACK Admission Status: ER Accout number: [id number] Admission Date: 02-29-2020 : 1970 Admission Diagnosis:CEREBRAL INFARCTION, UNSPECIFIED Attending: MONI AKBAR Current LOS: 6 Anticipated DC Date: Planned Disposition: Home Primary Insurance: NOVASYSMCR Discharge Planning Comments: CM met with patient to complete initial dc planning assessment. CM educated patient on the CM role and verbal consent given by patient to complete assessment. Patient lives at home with a friend, Li Martini. At discharge patient plans to return and feels this is a safe discharge. CM discussed availability of home health, rehab services, and medical equipment. Patient denied known discharge needs at this time. I informed him that PT/OT/ST recommend inpatient rehab and he declines. I informed him that home health can do PT/OT/ST as well and he continues to decline home health. He states he will get a cane for stability if needed. He does not want any DME from case management. He is not wearing oxygen at this time. States his adult son, or daughter (Ana Cristina Estes) will transport him home. CM will continue to follow and will assist as needed with dc plans/needs. Pharmacy Informatics Manager: Siena Vu DCPIA - Discharge Planning Initial Assessment Updated by [id number]: Siena Vu on 03/06/20 11:57 am * Is the patient Alert and Oriented? Yes * How many steps to enter\exit or inside your home? 2/0 * PCP Dr. Neumann in [place] * [facility] in [place] * Preadmission Environment Home with Family * ADLs Independent * Equipment None * List name and contact numbers for known caregivers / representatives who currently or will assist patient after discharge: Li Martini - friend - [phone] Tulio Womack - son [phone] * Verbal permission to speak to the caregivers and representatives has been obtained from the patient. Yes * Community resources currently utilized None * Additional services required to return to the preadmission environment? No * Can the patient safely return to the preadmission environment? Yes * Has this patient been hospitalized within the prior 30 days at any hospital? Yes Coverage Notice Reviewer: [id number] Marky Vu Notice Issued Date-Time: 03/06/2020 12:00 Notice Type: Patient Choice Letter Notice Delivered To: Patient Relationship to Patient: Self Power Line Installer And Repairer Name: Delivery Method: HAND - Hand Delivered Deidre Days: Prior Verbal Notification: Recipient Understood Notice: Yes Recipient Signature: Yes Med Rec Note Co-signed by Attending: Coverage Notice Comment: ARIANNE for declination for home health or inpatient rehab signed Reviewer: [email or web address] Marky Vu Notice Issued Date-Time: 03/06/2020 12:00 Notice Type: IM Discharge Notice Notice Delivered To: Patient Relationship to Patient: Self Power Line Installer And Repairer Name: Delivery Method: HAND - Hand Delivered Deidre Days: Prior Verbal Notification: Recipient Understood Notice: Yes Recipient Signature: Yes Med Rec Note Co-signed by Attending: Coverage Notice Comment: IMM explained, signed, given, copy placed in MR Last DP export: 03/08/20 6:06 a Patient Name: ALBERTO WOMACK Page 30173 at 0718 All edits/amendments must be made on the electronic document DICTATION DATE: 03/08/20717 RAILROAD INSPECTOR: MELISSA 03/08/20717 RPT#: [id number] DC DATE:03/07/20 STATUS: DIS IN [facility] [address] [place] [address] END OF REPORT
--- NOTE | 2020-03-08 08:50 | MORECARE ---
CASE MANAGEMENT DISCHARGE SUMMARY PATIENT: ALBERTO WOMACK UNIT: [id number] ADM DATE: 02/29/20 AGE: 49 : 72 SEX: M ROOM/BED: D.2102 AUTHOR: KALEB CUEVAS PHYSICIAN: REFERRING PHYSICIAN: MONI AKBAR MD DATE OF SERVICE: 03/08/20 Discharge Plan Patient Name: ALBERTO WOMACK Facility: [facility]:[place] : 1970 Planned Disposition: Home Anticipated Discharge Date: Discharge Date: 03/07/2020 Expected LOS: Initial Reviewer: [email or web address] Initial Review Date: 03/06/2020 Generated: 03/08/20 9:49 am Comments DCP- Discharge Planning Updated by [email or web address]: Siena Vu on 03/08/20 6:[address] CM NOTED ORDER FOR NEBULIZER THIS AM. I ATTEMPTED TO CALL PATIENT WITH NO ANSWER. I CALLED LINCCATHERINE AND SPOKE TO COURT AND ORDER AND CHART NOTES FAXED. DCP- Discharge Planning Updated by [id number]: Siena Vu on 03/07/20 1:[address] Patient Name: ALBERTO WOMACK Encounter No: [id number] : 1970 Primary Insurance: NOVASYSMCR Anticipated DC Date: Planned Disposition: Home External Planned Provider: : DCP follow-up note: Patient and family in agreement with discharge plan. No changes to plan. Case management will follow and assist as needed. Siena Vu DCP- Discharge Planning Updated by [id number]: Siena Vu on 03/06/20 11:[address] Patient Name: ALBERTO WOMACK Admission Status: ER Accout number: [id number] Admission Date: 02-29-2020 : 1970 Admission Diagnosis:CEREBRAL INFARCTION, UNSPECIFIED Attending: MONI AKBAR Current LOS: 6 Anticipated DC Date: Planned Disposition: Home Primary Insurance: NOVASYSMCR Discharge Planning Comments: CM met with patient to complete initial dc planning assessment. CM educated patient on the CM role and verbal consent given by patient to complete assessment. Patient lives at home with a friend, Li Martini. At discharge patient plans to return and feels this is a safe discharge. CM discussed availability of home health, rehab services, and medical equipment. Patient denied known discharge needs at this time. I informed him that PT/OT/ST recommend inpatient rehab and he declines. I informed him that home health can do PT/OT/ST as well and he continues to decline home health. He states he will get a cane for stability if needed. He does not want any DME from case management. He is not wearing oxygen at this time. States his adult son, or daughter (Ana Cristina Estes) will transport him home. CM will continue to follow and will assist as needed with dc plans/needs. Trestleman: Siena Vu DCPIA - Discharge Planning Initial Assessment Updated by [email or web address]: Siena Vu on 03/06/20 11:57 am * Is the patient Alert and Oriented? Yes * How many steps to enter\exit or inside your home? 2/0 * PCP Dr. Neumann in [place] * [facility] in [place] * Preadmission Environment Home with Family * ADLs Independent * Equipment None * List name and contact numbers for known caregivers / representatives who currently or will assist patient after discharge: Li Martini - friend - [phone] Tulio Womack - son [phone] * Verbal permission to speak to the caregivers and representatives has been obtained from the patient. Yes * Community resources currently utilized None * Additional services required to return to the preadmission environment? No * Can the patient safely return to the preadmission environment? Yes * Has this patient been hospitalized within the prior 30 days at any hospital? Yes Coverage Notice Reviewer: [id number] Marky Vu Notice Issued Date-Time: 03/06/2020 12:00 Notice Type: Patient Choice Letter Notice Delivered To: Patient Relationship to Patient: Self Theatrical Scenic Designer Name: Delivery Method: HAND - Hand Delivered Deidre Days: Prior Verbal Notification: Recipient Understood Notice: Yes Recipient Signature: Yes Med Rec Note Co-signed by Attending: Coverage Notice Comment: ARIANNE for declination for home health or inpatient rehab signed Reviewer: [id number] Marky Vu Notice Issued Date-Time: 03/06/2020 12:00 Notice Type: IM Discharge Notice Notice Delivered To: Patient Relationship to Patient: Self Theatrical Scenic Designer Name: Delivery Method: HAND - Hand Delivered Deidre Days: Prior Verbal Notification: Recipient Understood Notice: Yes Recipient Signature: Yes Med Rec Note Co-signed by Attending: Coverage Notice Comment: IMM explained, signed, given, copy placed in MR Last DP export: 03/08/20 6:18 a Patient Name: ALBERTO WOMACK Page 36467 at 0850 All edits/amendments must be made on the electronic document DICTATION DATE: 03/08/2049 GRAPHIC DESIGN MANAGER: MELISSA 03/08/20 0849 RPT#: [id number] DC DATE:03/07/20 STATUS: DIS IN [facility] [address] [place] [address] END OF REPORT
--- NOTE | 2020-03-08 12:16 | MORECARE ---
CASE MANAGEMENT DISCHARGE SUMMARY PATIENT: ALBERTO WOMACK UNIT: [id number] ADM DATE: 02/29/20 AGE: 49 : 72 SEX: M ROOM/BED: D.2102 AUTHOR: KALEB CUEVAS PHYSICIAN: REFERRING PHYSICIAN: MONI AKBAR MD DATE OF SERVICE: 03/08/20 Discharge Plan Patient Name: ALBERTO WOMACK Facility: [facility]:[place] : 1970 Planned Disposition: Home Anticipated Discharge Date: Discharge Date: 03/07/2020 Expected LOS: Initial Reviewer: [id number] Initial Review Date: 03/06/2020 Generated: 03/08/20 1:16 pm Comments DCP- Discharge Planning Updated by [email or web address]: Siena Vu on 03/08/20 11:[address] I spoke with Court with [facility] and [facility] faxed to them for nebulizer. The patient is living in a shed, so they are getting him a portable nebulizer. They are also getting him financial aide for his nebulizer, so there will only be a 3 dollar payment. DCP- Discharge Planning Updated by [id number]: Siena Vu on 03/08/20 6:[address] CM NOTED ORDER FOR NEBULIZER THIS AM. I ATTEMPTED TO CALL PATIENT WITH NO ANSWER. I CALLED [facility] AND SPOKE TO COURT AND ORDER AND CHART NOTES FAXED. DCP- Discharge Planning Updated by [id number]: Siena Vu on 03/07/20 1:[address] Patient Name: ALBERTO WOMACK Encounter No: [id number] : 1970 Primary Insurance: NOVASYSMCR Anticipated DC Date: Planned Disposition: Home External Planned Provider: : DCP follow-up note: Patient and family in agreement with discharge plan. No changes to plan. Case management will follow and assist as needed. Siena Vu DCP- Discharge Planning Updated by [email or web address]: Siena Vu on 03/06/20 11:[address] Patient Name: ALBERTO WOMACK Admission Status: ER Accout number: [id number] Admission Date: 02-29-2020 : 1970 Admission Diagnosis:CEREBRAL INFARCTION, UNSPECIFIED Attending: MONI AKBAR Current LOS: 6 Anticipated DC Date: Planned Disposition: Home Primary Insurance: [employer] Discharge Planning Comments: CM met with patient to complete initial dc planning assessment. CM educated patient on the CM role and verbal consent given by patient to complete assessment. Patient lives at home with a friend, Li Martini. At discharge patient plans to return and feels this is a safe discharge. CM discussed availability of home health, rehab services, and medical equipment. Patient denied known discharge needs at this time. I informed him that PT/OT/ST recommend inpatient rehab and he declines. I informed him that home health can do PT/OT/ST as well and he continues to decline home health. He states he will get a cane for stability if needed. He does not want any DME from case management. He is not wearing oxygen at this time. States his adult son, or daughter (Ana Cristina Estes) will transport him home. CM will continue to follow and will assist as needed with dc plans/needs. Director Of Business Operations: Siena Vu DCPIA - Discharge Planning Initial Assessment Updated by [email or web address]: Siena Vu on 03/06/20 11:57 am * Is the patient Alert and Oriented? Yes * How many steps to enter\exit or inside your home? 2/0 * PCP Dr. Neumann in [place] * [facility] in [place] * Preadmission Environment Home with Family * ADLs Independent * Equipment None * List name and contact numbers for known caregivers / representatives who currently or will assist patient after discharge: Li Martini - friend - [phone] Tulio Womack - son [phone] * Verbal permission to speak to the caregivers and representatives has been obtained from the patient. Yes * Community resources currently utilized None * Additional services required to return to the preadmission environment? No * Can the patient safely return to the preadmission environment? Yes * Has this patient been hospitalized within the prior 30 days at any hospital? Yes Coverage Notice Reviewer: [id number] - Siena Vu Notice Issued Date-Time: 03/06/2020 12:00 Notice Type: Patient Choice Letter Notice Delivered To: Patient Relationship to Patient: Self Asl Interpreter Name: Delivery Method: HAND - Hand Delivered Deidre Days: Prior Verbal Notification: Recipient Understood Notice: Yes Recipient Signature: Yes Med Rec Note Co-signed by Attending: Coverage Notice Comment: ARIANNE for declination for home health or inpatient rehab signed Reviewer: [id number] Marky Vu Notice Issued Date-Time: 03/06/2020 12:00 Notice Type: IM Discharge Notice Notice Delivered To: Patient Relationship to Patient: Self Asl Interpreter Name: Delivery Method: HAND - Hand Delivered Deidre Days: Prior Verbal Notification: Recipient Understood Notice: Yes Recipient Signature: Yes Med Rec Note Co-signed by Attending: Coverage Notice Comment: IMM explained, signed, given, copy placed in MR Last DP export: 03/08/20 7:50 a Patient Name: ALBERTO WOMACK Page [phone] at 1216 All edits/amendments must be made on the electronic document DICTATION DATE: 03/08/20 1216 INTERNET PROJECT MANAGER: MELISSA 03/08/20 1216 RPT#: [id number] DC DATE:03/07/20 STATUS: DIS IN [facility] [address] [place] [address] END OF REPORT
[2020-03-12 09:10] LABS: FUNGUS CULTURE RESULT 1 Candida albicans (()); FUNGUS MYCOLOGY CULTURE Preliminary report (())
== END 2020-03-07 15:40 | disposition home or self-care (01) | DRG 64 ==
LOC: D.ER 08:16 → D.M2 10:47 → D.MS 10:47 → D.ICU 10:47 → D.M2 03-05 17:37
PROVIDERS: Emergency Medicine; Family Medicine; Internal Medicine Pulmonary Disease; ADMIT Internal Medicine Nephrology; ATTEND Internal Medicine Nephrology
PROC: 0BH17EZ Insertion of Endotracheal Airway into Trachea, Via Natural or Artificial Opening (ICD-10-PCS; principal; 2020-03-01)
PROC: 5A1945Z Respiratory Ventilation, 24-96 Consecutive Hours (ICD-10-PCS; 2020-03-01)
PROC: 5A12012 Performance of Cardiac Output, Single, Manual (ICD-10-PCS; 2020-03-01)
PROC: 0B9F8ZX Drainage of Right Lower Lung Lobe, Via Natural or Artificial Opening Endoscopic, Diagnostic (ICD-10-PCS; 2020-03-03)
DX: I63.9 Cerebral infarction, unspecified (principal); G93.41 Metabolic encephalopathy; I46.9 Cardiac arrest, cause unspecified; J69.0 Pneumonitis due to inhalation of food and vomit; J96.00 Acute respiratory failure, unspecified whether with hypoxia or hypercapnia; F17.203 Nicotine dependence unspecified, with withdrawal; J98.11 Atelectasis; I10 Essential (primary) hypertension; I25.10 Atherosclerotic heart disease of native coronary artery without angina pectoris; E78.5 Hyperlipidemia, unspecified; E11.9 Type 2 diabetes mellitus without complications; M19.90 Unspecified osteoarthritis, unspecified site; F41.8 Other specified anxiety disorders; F31.9 Bipolar disorder, unspecified; J43.9 Emphysema, unspecified

== ENCOUNTER 2020-03-11 06:22 | Observation (INO) | payer OTHER ==
[~2020-03-11] VITALS: Ht 172.7 cm; Wt 79.4 kg
[~2020-03-11 06:22] MED LIST changes: +LISINOPRIL10 MG PO
--- NOTE | 2020-03-11 06:42 | NUR ---
PT GIVEN BEVERAGE TO DRINK BY PT WAS UNABLE TO SWALLOW AND COUGHED/SPIT IT RIGHT OUT.
[2020-03-11 07:25] VITALS: BP 131/87
--- NOTE | 2020-03-11 07:26 | NUR ---
REPORT TO GETACHEW [email or web address]
--- NOTE | 2020-03-11 07:30 | NUR ---
ADMIT TO ROOM #2106, CONDITION STABLE, NS INFUSING @ 150 ML/HR
[2020-03-11 07:32] LABS: CALC OSMOLALITY 276 mosm/kg (275-300); CALCIUM 8.9 mg/dL (8.5-10.1); CARBON DIOXIDE 31.2 mmol/L (21.0-32.0); CHLORIDE - SERUM 101 mmol/L (98-107); CREATININE - SERUM 0.9 mg/dL (0.6-1.3); GLUCOSE 135 mg/dL (74-106); POTASSIUM - SERUM 4.2 mmol/L (3.5-5.1); SODIUM 138 mmol/L (136-145); UREA NITROGEN 9 mg/dL (7-18); eGFR NON AFRICAN AMERICAN > 90 mL/min (90-120)
[2020-03-11 07:38] LABS: ALBUMIN 3.3 g/dL (3.4-5.0); ALKALINE PHOSPHATASE 110 U/L (30-120); ALT (SGPT) 34 U/L (10-68); BILIRUBIN - TOTAL 0.37 mg/dL (0.2-1.3); C-REACTIVE PROTEIN 2.9 mg/dL (0.0-0.9); PROTEIN - SERUM 7.5 g/dL (6.4-8.2)
[2020-03-11 07:53] LABS: BASOPHILS 0.5 % (0-2); EOSINOPHILS 5.2 % (0-7); HEMATOCRIT 45.5 % (42.0-54.0); HEMOGLOBIN 14.8 g/dL (13.5-17.5); IMMATURE GRANULOCYTES 0.5 % (0-5); LYMPHOCYTES 35.3 % (15-50); MCH 28.5 pg (26.0-34.0); MCHC 32.5 g/dL (31.0-37.0); MCV 87.7 fL (80.0-100.0); MEAN PLATELET VOLUME 11.3 fL (7.4-10.4); NEUTROPHILS 51.5 % (40-80); RBC 5.19 10x6/uL (4.20-6.10); WBC 6.1 10x3/uL (4.8-10.8)
[2020-03-11 07:56] LABS: PLATELET COUNT 280 10x3/uL (130-400)
[2020-03-11 10:41] VITALS: BP 121/86
[2020-03-11 13:14] VITALS: BP 139/94
--- NOTE | 2020-03-11 14:16 | MORECARE ---
CASE MANAGEMENT DISCHARGE SUMMARY PATIENT: ALBERTO ALLAN UNIT: [id number] ADM DATE: 03/11/20 AGE: 49 : 72 SEX: M ROOM/BED: D.2106 AUTHOR: KALEB CUEVAS PHYSICIAN: REFERRING PHYSICIAN: ANGEL DINH MD DATE OF SERVICE: 03/11/20 Discharge Plan Patient Name: ALBERTO ALLAN Facility: [facility]:[place] : 1970 Planned Disposition: Home Anticipated Discharge Date: Discharge Date: Expected LOS: Initial Reviewer: [id number] Initial Review Date: 03/11/2020 Generated: 03/11/20 3:15 pm Coverage Notice Reviewer: [id number] - Siena Vu Notice Issued Date-Time: 03/11/2020 14:09 Notice Type: Medicare Outpatient Observation Notice Notice Delivered To: Patient Relationship to Patient: Self Half Backer Name: Delivery Method: HAND - Hand Delivered Deidre Days: Prior Verbal Notification: Recipient Understood Notice: Yes Recipient Signature: Yes Med Rec Note Co-signed by Attending: Coverage Notice Comment: KUMAR explained, signed, given, copy placed in MR Patient Name: ALBERTO ALLAN Page 82140 at 1416 All edits/amendments must be made on the electronic document DICTATION DATE: 03/11/20 1415 SPORTS INFORMATION DIRECTOR: MELISSA 03/11/20 1415 RPT#: [id number] DC DATE: STATUS: ADM IN [facility] [address] [place] [address] END OF REPORT
--- NOTE | 2020-03-11 14:29 | MORECARE ---
CASE MANAGEMENT DISCHARGE SUMMARY PATIENT: ALBERTO WOMACK UNIT: [id number] ADM DATE: 03/11/20 AGE: 49 : 72 SEX: M ROOM/BED: D.2106 AUTHOR: MASONDOC PHYSICIAN: REFERRING PHYSICIAN: ANGEL DINH MD DATE OF SERVICE: 03/11/20 Discharge Plan Patient Name: ALBERTO WOMACK Facility: [facility]:[place] : 1970 Planned Disposition: Home Anticipated Discharge Date: Discharge Date: Expected LOS: Initial Reviewer: [email or web address] Initial Review Date: 03/11/2020 Generated: 03/11/20 3:28 pm DCPIA - Discharge Planning Initial Assessment Updated by [id number]: Siena Vu on 03/11/20 2:22 pm * Is the patient Alert and Oriented? Yes * How many steps to enter\exit or inside your home? 2/0 * PCP Dr. Neumann in [place] * [facility] in [place] * Preadmission Environment Home Alone * ADLs Independent * Equipment Nebulizer * List name and contact numbers for known caregivers / representatives who currently or will assist patient after discharge: Italia Estes - DTR - [phone] Tuliomansi Womack - [facility] - [phone] Trudy Lamb [phone] * Verbal permission to speak to the caregivers and representatives has been obtained from the patient. Yes * Community resources currently utilized None * Please name any agencies selected above. DME - [facility] * Additional services required to return to the preadmission environment? No * Can the patient safely return to the preadmission environment? Yes * Has this patient been hospitalized within the prior 30 days at any hospital? Yes Coverage Notice Reviewer: [email or web address] - Siena Vu Notice Issued Date-Time: 03/11/2020 14:09 Notice Type: Medicare Outpatient Observation Notice Notice Delivered To: Patient Relationship to Patient: Self Emissions Inspector Name: Delivery Method: HAND - Hand Delivered Deidre Days: Prior Verbal Notification: Recipient Understood Notice: Yes Recipient Signature: Yes Med Rec Note Co-signed by Attending: Coverage Notice Comment: KUMAR explained, signed, given, copy placed in MR Last DP export: 03/11/20 1:16 pm Patient Name: ALBERTO WOMACK Page 91004 at 1429 All edits/amendments must be made on the electronic document DICTATION DATE: 03/11/201427 EXPELLER OPERATOR: MELISSA 03/11/201427 RPT#: [id number] DC DATE: STATUS: ADM IN [facility] [address] [place] [address] END OF REPORT
--- NOTE | 2020-03-11 14:52 | MORECARE ---
CASE MANAGEMENT DISCHARGE SUMMARY PATIENT: ALBERTO WOMACK UNIT: [id number] ADM DATE: 03/11/20 AGE: 49 : 72 SEX: M ROOM/BED: D.2106 AUTHOR: MASON,DOC PHYSICIAN: REFERRING PHYSICIAN: ANGEL DINH MD DATE OF SERVICE: 03/11/20 Discharge Plan Patient Name: ALBERTO WOMACK Facility: [facility]:[place] : 1970 Planned Disposition: Home Anticipated Discharge Date: Discharge Date: Expected LOS: Initial Reviewer: [email or web address] Initial Review Date: 03/11/2020 Generated: 03/11/20 3:51 pm Comments DCP- Discharge Planning Updated by [id number]: Siena Vu on 03/11/20 1:[address] Patient Name: ALBERTO WOMACK Admission Status: ER Accout number: [id number] Admission Date: 03-11-2020 : 1970 Admission Diagnosis: Attending: LOPEZ DINH Current LOS: 1 Anticipated DC Date: Planned Disposition: Home Primary Insurance: [employer] Discharge Planning Comments: CM met with patient to complete initial dc planning assessment. CM educated patient on the CM role and verbal consent given by patient to complete assessment. Patient lives in "a shed" on a friend's property ([place]). At discharge patient plans to return and feels this is a safe discharge. CM discussed availability of home health, rehab services, and medical equipment. He has received his nebulizer, but has not gotten the medication for it yet. I called Eddie with [facility] and she states that they attempted to deliver his neb meds, but he was not available. Eddie states they will deliver to his home today and will call his son or daughter to tell them the med is there and see if they can pick it up from there. Patient denied known discharge needs at this time. CM will continue to follow and will assist as needed with dc plans/needs. Material Combiner: Siena Vu DCPIA - Discharge Planning Initial Assessment Updated by [id number]: Siena Vu on 03/11/20 2:22 pm * Is the patient Alert and Oriented? Yes * How many steps to enter\\exit or inside your home? 2/0 * PCP Dr. Neumann in [place] * [facility] in [place] * Preadmission Environment Home Alone * ADLs Independent * Equipment Nebulizer * List name and contact numbers for known caregivers / representatives who currently or will assist patient after discharge: Italia Estes - DTR - [phone] Tulio Womack - son - [phone] Trudy Martini [phone] * Verbal permission to speak to the caregivers and representatives has been obtained from the patient. Yes * Community resources currently utilized None * Please name any agencies selected above. DME - [facility] * Additional services required to return to the preadmission environment? No * Can the patient safely return to the preadmission environment? Yes * Has this patient been hospitalized within the prior 30 days at any hospital? Yes Coverage Notice Reviewer: [id number] Marky Vu Notice Issued Date-Time: 03/11/2020 14:09 Notice Type: Medicare Outpatient Observation Notice Notice Delivered To: Patient Relationship to Patient: Self Certified Wellness Program Manager Name: Delivery Method: HAND - Hand Delivered Deidre Days: Prior Verbal Notification: Recipient Understood Notice: Yes Recipient Signature: Yes Med Rec Note Co-signed by Attending: Coverage Notice Comment: JOSÉ explained, signed, given, copy placed in MR Last DP export: 03/11/20 1:29 pm Patient Name: ALBERTO WOMACK Page 49206 at 1452 All edits/amendments must be made on the electronic document DICTATION DATE: 03/11/201450 RESIDENTIAL TECH: MELISSA 03/11/20 145 RPT#: [id number] DC DATE: STATUS: ADM IN [facility] [address] [place] [address] END OF REPORT
[2020-03-11 17:53] VITALS: BP 151/90
[2020-03-11 19:11] VITALS: BMI 26.6
--- NOTE | 2020-03-11 19:23 | NUR ---
ASSESSMENT COMPLETE RESP UNLABORED NAD NOTED
[2020-03-11 20:00] VITALS: BP 140/91
[2020-03-12] VITALS: BP 150/91
--- NOTE | 2020-03-12 03:28 | NUR ---
I have reviewed this patient and I concur with the Shift Assessment completed by the Licensed Practical Nurse today this shift.
[2020-03-12 04:00] VITALS: BP 160/100
[2020-03-12 06:34] LABS: BASOPHILS 0.4 % (0-2); HEMATOCRIT 46.5 % (42.0-54.0); HEMOGLOBIN 14.9 g/dL (13.5-17.5); IMMATURE GRANULOCYTES 0.4 % (0-5); LYMPHOCYTES 34.7 % (15-50); MCV 87.2 fL (80.0-100.0); MEAN PLATELET VOLUME 11.3 fL (7.4-10.4); MONOCYTES 6.2 % (2-11); NEUTROPHILS 53.3 % (40-80); PLATELET COUNT 253 10x3/uL (130-400); RBC 5.33 10x6/uL (4.20-6.10); RDW 14.1 % (11.5-14.5); WBC 4.8 10x3/uL (4.8-10.8)
[2020-03-12 07:19] LABS: ALBUMIN 3.2 g/dL (3.4-5.0); ALKALINE PHOSPHATASE 111 U/L (30-120); ALT (SGPT) 32 U/L (10-68); BILIRUBIN - TOTAL 0.26 mg/dL (0.2-1.3); CALC OSMOLALITY 270 mosm/kg (275-300); CALCIUM 8.7 mg/dL (8.5-10.1); CARBON DIOXIDE 29.6 mmol/L (21.0-32.0); CHLORIDE - SERUM 99 mmol/L (98-107); CREATININE - SERUM 0.8 mg/dL (0.6-1.3); GLUCOSE 105 mg/dL (74-106); POTASSIUM - SERUM 4.1 mmol/L (3.5-5.1); PROTEIN - SERUM 7.3 g/dL (6.4-8.2); SODIUM 136 mmol/L (136-145); UREA NITROGEN 9 mg/dL (7-18); eGFR NON AFRICAN AMERICAN > 90 mL/min (90-120)
--- NOTE | 2020-03-12 08:02 | NUR ---
PT REFUSING NPO STATUS. PER PT HE STATES HE CAN SWALLOW FINE NOW AFTER GIVING HIMSELF A THROAT MASSAGE LAST NIGHT AND HAS DRANK FOUR CUPS OF WATER. PT STATES HE COUGHS AND OCCASIONALLY WILL COUGH UP FLEM NO LIQUID. RECONSULTED SPEECH THERAPY. PT REFUSING IVF. RIGHT AC 20G IV FLUSHED AND SWAB CAP PLACED. PT STATES HE HAS NO FURTHER NEEDS AT THIS TIME. BED LOW. CL IN REACH.
--- NOTE | 2020-03-12 11:31 | MORECARE ---
CASE MANAGEMENT DISCHARGE SUMMARY PATIENT: ALBERTO WOMACK UNIT: [id number] ADM DATE: 03/11/20 AGE: 49 : 72 SEX: M ROOM/BED: D.2106 AUTHOR: MASON,DOC PHYSICIAN: REFERRING PHYSICIAN: ANGEL DINH MD DATE OF SERVICE: 03/12/20 Discharge Plan Patient Name: ALBERTO WOMACK Facility: [facility]:[place] : 1970 Planned Disposition: Home Anticipated Discharge Date: Discharge Date: Expected LOS: Initial Reviewer: [email or web address] Initial Review Date: 03/11/2020 Generated: 03/12/20 12:30 pm DCP- Discharge Planning Updated by [email or web address]: Siena Vu on 03/11/20 1:[address] Patient Name: ALBERTO WOMACK Admission Status: ER Accout number: [id number] Admission Date: 03-11-2020 : 1970 Admission Diagnosis: Attending: LOPEZ DINH Current LOS: 1 Anticipated DC Date: Planned Disposition: Home Primary Insurance: [employer] Discharge Planning Comments: CM met with patient to complete initial dc planning assessment. CM educated patient on the CM role and verbal consent given by patient to complete assessment. Patient lives in "a shed" on a friend's property ([place]). At discharge patient plans to return and feels this is a safe discharge. CM discussed availability of home health, rehab services, and medical equipment. He has received his nebulizer, but has not gotten the medication for it yet. I called Eddie with [facility] and she states that they attempted to deliver his neb meds, but he was not available. Eddie states they will deliver to his home today and will call his son or daughter to tell them the med is there and see if they can pick it up from there. Patient denied known discharge needs at this time. CM will continue to follow and will assist as needed with dc plans/needs. Heavy Forger: Siena Vu DCPIA - Discharge Planning Initial Assessment Updated by [email or web address]: Siena Vu on 03/11/20 2:22 pm * Is the patient Alert and Oriented? Yes * How many steps to enter\\exit or inside your home? 2/0 * PCP Dr. Neumann in [place] * [facility] in [place] * Preadmission Environment Home Alone * ADLs Independent * Equipment Nebulizer * List name and contact numbers for known caregivers / representatives who currently or will assist patient after discharge: Italia Estes - DTR - [phone] Tulio Womack - son - [phone] Trudy Martini [phone] * Verbal permission to speak to the caregivers and representatives has been obtained from the patient. Yes * Community resources currently utilized None * Please name any agencies selected above. DME - [facility] * Additional services required to return to the preadmission environment? No * Can the patient safely return to the preadmission environment? Yes * Has this patient been hospitalized within the prior 30 days at any hospital? Yes External Providers External Provider: [employer] Next Contact Date: Service Request Date: Service Type: Resolution: Reviewer: Comments: Coverage Notice Reviewer: [email or web address] Marky Vu Notice Issued Date-Time: 03/11/2020 14:09 Notice Type: Medicare Outpatient Observation Notice Notice Delivered To: Patient Relationship to Patient: Self Bead Flipper Name: Delivery Method: HAND - Hand Delivered Deidre Days: Prior Verbal Notification: Recipient Understood Notice: Yes Recipient Signature: Yes Med Rec Note Co-signed by Attending: Coverage Notice Comment: JOSÉ explained, signed, given, copy placed in MR Last DP export: 03/11/20 1:52 pm Patient Name: ALBERTO WOMACK Page 51968 at 1131 All edits/amendments must be made on the electronic document DICTATION DATE: 03/12/20 1131 VP [employer]: MELISSA 03/12/20 1131 RPT#: [id number] DC DATE: STATUS: ADM IN [facility] [address] [place] [address] END OF REPORT
--- NOTE | 2020-03-12 11:55 | NUR ---
REFUSES TO WEAR TELEMETRY. DR. MOMIN IN ROOM AND STATES ORDER PT A MECHANICAL SOFT TRAY AND IF HE DOES OK WITH THAT. HE CAN DISCHARGE.
[2020-03-12 12:45] VITALS: Ht 172.7 cm; Wt 79.4 kg
[2020-03-12] MEDS ORDERED: PROTONIX40 MG PO (13:10)
[2020-03-12 13:32] VITALS: BP 149/79
--- NOTE | 2020-03-12 13:40 | NUR ---
I have reviewed this patient and I concur with the Shift Assessment completed by the Licensed Practical Nurse today this shift.
--- NOTE | 2020-03-12 13:54 | MORECARE ---
CASE MANAGEMENT DISCHARGE SUMMARY PATIENT: ALBERTO WOMACK UNIT: [id number] ADM DATE: 03/11/20 AGE: 49 : 72 SEX: M ROOM/BED: D.2106 AUTHOR: MASON,DOC PHYSICIAN: REFERRING PHYSICIAN: ANGEL DINH MD DATE OF SERVICE: 03/12/20 Discharge Plan Patient Name: ALBERTO WOMACK Facility: [facility]:[place] : 1970 Planned Disposition: Home Anticipated Discharge Date: Discharge Date: Expected LOS: Initial Reviewer: [email or web address] Initial Review Date: 03/11/2020 Generated: 03/12/20 2:54 pm DCP- Discharge Planning Updated by [id number]: Siena Vu on 03/11/20 1:[address] Patient Name: ALBERTO WOMACK Admission Status: ER Accout number: [id number] Admission Date: 03-11-2020 : 1970 Admission Diagnosis: Attending: LOPEZ DINH Current LOS: 1 Anticipated DC Date: Planned Disposition: Home Primary Insurance: [employer] Discharge Planning Comments: CM met with patient to complete initial dc planning assessment. CM educated patient on the CM role and verbal consent given by patient to complete assessment. Patient lives in "a shed" on a friend's property ([place]). At discharge patient plans to return and feels this is a safe discharge. CM discussed availability of home health, rehab services, and medical equipment. He has received his nebulizer, but has not gotten the medication for it yet. I called Eddie with [facility] and she states that they attempted to deliver his neb meds, but he was not available. Eddie states they will deliver to his home today and will call his son or daughter to tell them the med is there and see if they can pick it up from there. Patient denied known discharge needs at this time. CM will continue to follow and will assist as needed with dc plans/needs. Cylinder Grinder: Siena Vu DCPIA - Discharge Planning Initial Assessment Updated by [email or web address]: Siena Vu on 03/11/20 2:22 pm * Is the patient Alert and Oriented? Yes * How many steps to enter\\exit or inside your home? 2/0 * PCP Dr. Neumann in [place] * [facility] in [place] * Preadmission Environment Home Alone * ADLs Independent * Equipment Nebulizer * List name and contact numbers for known caregivers / representatives who currently or will assist patient after discharge: Italia Estes - DTR - [phone] Tulio Womack - son - [phone] Trudy Martini [phone] * Verbal permission to speak to the caregivers and representatives has been obtained from the patient. Yes * Community resources currently utilized None * Please name any agencies selected above. DME - [facility] * Additional services required to return to the preadmission environment? No * Can the patient safely return to the preadmission environment? Yes * Has this patient been hospitalized within the prior 30 days at any hospital? Yes External Providers External Provider: [facility] Next Contact Date: Service Request Date: Service Type: Resolution: Reviewer: Comments: Coverage Notice Reviewer: [id number] Marky Vu Notice Issued Date-Time: 03/11/2020 14:09 Notice Type: Medicare Outpatient Observation Notice Notice Delivered To: Patient Relationship to Patient: Self Marketing Designer Name: Delivery Method: HAND - Hand Delivered Deidre Days: Prior Verbal Notification: Recipient Understood Notice: Yes Recipient Signature: Yes Med Rec Note Co-signed by Attending: Coverage Notice Comment: JOSÉ explained, signed, given, copy placed in MR Last DP export: 03/12/20 10:31 am Patient Name: ALBERTO WOMACK Page 93768 at 1354 All edits/amendments must be made on the electronic document DICTATION DATE: 03/12/20 1359 MUSIC MANAGER: MELISSA 03/12/20 1354 RPT#: [id number] DC DATE: STATUS: ADM IN [facility] [address] [place] [address] END OF REPORT
--- NOTE | 2020-03-12 14:04 | NUR ---
PAGE INTO AMIRAH LINARES APN FOR POSSIBLE NEED OF PLAVIX SCRIPT. AWAITING CALL BACK.
[2020-03-12] MEDS ORDERED: PLAVIX75 MG PO (14:09)
--- NOTE | 2020-03-12 14:09 | MORECARE ---
CASE MANAGEMENT DISCHARGE SUMMARY PATIENT: ALBERTO WOMACK UNIT: [id number] ADM DATE: 03/11/20 AGE: 49 : 72 SEX: M ROOM/BED: D.2106 AUTHOR: MASON,DOC PHYSICIAN: REFERRING PHYSICIAN: ANGEL DINH MD DATE OF SERVICE: 03/12/20 Discharge Plan Patient Name: ALBERTO WOMACK Facility: [facility]:[place] : 1970 Planned Disposition: Home Anticipated Discharge Date: Discharge Date: Expected LOS: Initial Reviewer: [email or web address] Initial Review Date: 03/11/2020 Generated: 03/12/20 3:09 pm Comments DCP- Discharge Planning Updated by [email or web address]: Siena Mirella on 03/12/20 12:[address] Patient requesting discharge. Solomon with saw him again and states his swallowing has improved. Patient is in agreement to outpatient speech therapy at [facility]. I received a written order and faxed it to our PT department. I spoke with Yuval and his first appointment is March 14 at 11:30. Pt states he does have his neb meds now, his son put them in his home. Home today with OP ST. DCP- Discharge Planning Updated by [email or web address]: Siena Vu on 03/11/20 1:[address] Patient Name: ALBERTO WOMACK Admission Status: ER Accout number: [id number] Admission Date: 03-11-2020 : 1970 Admission Diagnosis: Attending: LOPEZ DINH Current LOS: 1 Anticipated DC Date: Planned Disposition: Home Primary Insurance: [facility] Discharge Planning Comments: CM met with patient to complete initial dc planning assessment. CM educated patient on the CM role and verbal consent given by patient to complete assessment. Patient lives in "a shed" on a friend's property ([place]). At discharge patient plans to return and feels this is a safe discharge. CM discussed availability of home health, rehab services, and medical equipment. He has received his nebulizer, but has not gotten the medication for it yet. I called Eddie with [facility] and she states that they attempted to deliver his neb meds, but he was not available. Eddie states they will deliver to his home today and will call his son or daughter to tell them the med is there and see if they can pick it up from there. Patient denied known discharge needs at this time. CM will continue to follow and will assist as needed with dc plans/needs. Deaf Teacher: Siena Vu DCPIA - Discharge Planning Initial Assessment Updated by [email or web address]: Siena Vu on 03/11/20 2:22 pm * Is the patient Alert and Oriented? Yes * How many steps to enter\\exit or inside your home? 2/0 * PCP Dr. Neumann in [place] * [facility] in [place] * Preadmission Environment Home Alone * ADLs Independent * Equipment Nebulizer * List name and contact numbers for known caregivers / representatives who currently or will assist patient after discharge: Italiamckayla Estes - DTR - [phone] Tulio Womcak - son - [phone] Trudy Martini - [phone] * Verbal permission to speak to the caregivers and representatives has been obtained from the patient. Yes * Community resources currently utilized None * Please name any agencies selected above. DME - [facility] * Additional services required to return to the preadmission environment? No * Can the patient safely return to the preadmission environment? Yes * Has this patient been hospitalized within the prior 30 days at any hospital? Yes Coverage Notice Reviewer: [id number] - Siena Vu Notice Issued Date-Time: 03/11/2020 14:09 Notice Type: Medicare Outpatient Observation Notice Notice Delivered To: Patient Relationship to Patient: Self Mold Filling Operator Name: Delivery Method: HAND - Hand Delivered Deidre Days: Prior Verbal Notification: Recipient Understood Notice: Yes Recipient Signature: Yes Med Rec Note Co-signed by Attending: Coverage Notice Comment: JOSÉ explained, signed, given, copy placed in MR Last DP export: 03/12/20 12:54 pm Patient Name: ALBERTO WOMACK Page 85875 at 1409 All edits/amendments must be made on the electronic document DICTATION DATE: 03/12/20 1409 ASSISTANT REFINERY OPERATOR: MELISSA 03/12/20 140 RPT#: [id number] DC DATE: STATUS: ADM IN [facility] [address] [place] [address] END OF REPORT
--- NOTE | 2020-03-12 14:09 | NUR ---
I TALKED TO AMIRAH LINARES APN AND SHE IS GOING TO GIVE SCRIPT FOR PLAVIX.
--- NOTE | 2020-03-12 14:22 | NUR ---
WHILE PRIMARY NURSE JESI BRYSON IN ROOM, I STRESSED TO PATIENT THAT HE NEEDS TO PICK THE PLAVIX AND PROTONIX UP TODAY AND TO TAKE A PLAVIX SOON HE GETS IT. HE REPLIED, "WELL, IT WILL BE LATE TODAY WHEN I GET HOME SO I WILL START TOMORROW". I TOLD HIM THAT [facility] SHOULD BE OPEN TILL 8:00 PM TONIGHT AND THAT IT IS VERY IMPORTANT HE START THIS TODAY.
--- NOTE | 2020-03-12 14:24 | NUR ---
RIGHT AC 20G IV DC'D WITH CATH INTACT. DISCHARGE TEACHING DONE WITH PT AND INSTRUCTED PT TO WHEEL POLISHER PROTONIX AND PLAVIX AND THE IMPORTANCE OF TAKING THE PLAVIX DAILY. TEACHING ALSO DONE WITH THE NEED TO QUIT SMOKING. PT PASSIVE WITH TEACHING. PT AHS NO FURTHER QUESTIONS. CHART COPY SIGNED. NO TELE. PT DENIED NEED FOR WC. PT AMBULATE OUT OF HOSPITAL WITH ALL BELONGINGS.
--- NOTE | 2020-03-13 09:15 | MORECARE ---
CASE MANAGEMENT DISCHARGE SUMMARY PATIENT: ALBERTO WOMACK UNIT: [id number] ADM DATE: 03/11/20 AGE: 49 : 72 SEX: M ROOM/BED: D.2106 AUTHOR: MASON,DOC PHYSICIAN: REFERRING PHYSICIAN: ANGEL DINH MD DATE OF SERVICE: 03/13/20 Discharge Plan Patient Name: ALBERTO WOMACK Facility: [facility]:[place] : 1970 Planned Disposition: Home Anticipated Discharge Date: Discharge Date: 03/12/2020 Expected LOS: Initial Reviewer: [email or web address] Initial Review Date: 03/11/2020 Generated: 03/13/20 10:14 am Comments DCP- Discharge Planning Updated by [email or web address]: Siena Vu on 03/12/20 12:[address] Patient requesting discharge. Solomon with saw him again and states his swallowing has improved. Patient is in agreement to outpatient speech therapy at [facility]. I received a written order and faxed it to our PT department. I spoke with Yuval and his first appointment is March 14 at 11:30. Pt states he does have his neb meds now, his son put them in his home. Home today with OP . DCP- Discharge Planning Updated by [email or web address]: Siena Vu on 03/11/20 1:[address] Patient Name: ALBERTO WOMACK Admission Status: ER Accout number: [id number] Admission Date: 03-11-2020 : 1970 Admission Diagnosis: Attending: LOPEZ DINH Current LOS: 1 Anticipated DC Date: Planned Disposition: Home Primary Insurance: [id number] Discharge Planning Comments: CM met with patient to complete initial dc planning assessment. CM educated patient on the CM role and verbal consent given by patient to complete assessment. Patient lives in "a shed" on a friend's property ([place]). At discharge patient plans to return and feels this is a safe discharge. CM discussed availability of home health, rehab services, and medical equipment. He has received his nebulizer, but has not gotten the medication for it yet. I called Eddie with [facility] and she states that they attempted to deliver his neb meds, but he was not available. Eddie states they will deliver to his home today and will call his son or daughter to tell them the med is there and see if they can pick it up from there. Patient denied known discharge needs at this time. CM will continue to follow and will assist as needed with dc plans/needs. Critical Care Cns: Siena Vu DCPIA - Discharge Planning Initial Assessment Updated by [email or web address]: Siena Vu on 03/11/20 2:22 pm * Is the patient Alert and Oriented? Yes * How many steps to enter\\exit or inside your home? 2/0 * PCP Dr. Neumann in [place] * Pharmacy [facility] in [place] * Preadmission Environment Home Alone * ADLs Independent * Equipment Nebulizer * List name and contact numbers for known caregivers / representatives who currently or will assist patient after discharge: Italia Estes - DTR - [phone] Tulio Womack - son - [phone] Trudy [place] - [phone] * Verbal permission to speak to the caregivers and representatives has been obtained from the patient. Yes * Community resources currently utilized None * Please name any agencies selected above. DME - [employer] * Additional services required to return to the preadmission environment? No * Can the patient safely return to the preadmission environment? Yes * Has this patient been hospitalized within the prior 30 days at any hospital? 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
== END 2020-03-12 14:28 | disposition home or self-care (01) ==
LOC: D.ER 06:22 → D.M2 07:05 → OBSVTIME 07:05 → D.M2 07:05
PROVIDERS: Family Medicine; ADMIT Emergency Medicine; ATTEND Emergency Medicine
DX: R13.10 Dysphagia, unspecified (principal); I10 Essential (primary) hypertension; I25.10 Atherosclerotic heart disease of native coronary artery without angina pectoris; E78.5 Hyperlipidemia, unspecified; E11.9 Type 2 diabetes mellitus without complications; M19.90 Unspecified osteoarthritis, unspecified site; F41.8 Other specified anxiety disorders; F31.9 Bipolar disorder, unspecified; F17.203 Nicotine dependence unspecified, with withdrawal; Z86.73 Personal history of transient ischemic attack (TIA), and cerebral infarction without residual deficits

== ENCOUNTER → 2020-04-15 10:42 | Outpatient (CLI) | payer OTHER ==
[2020-03-12 12:45] VITALS: BMI 26.6
== END | disposition home or self-care (01) ==
LOC: D.LAB 10:42
PROVIDERS: ATTEND Internal Medicine Pulmonary Disease
DX: Z11.59 Encounter for screening for other viral diseases (principal)

== ENCOUNTER → 2020-04-16 09:39 | Outpatient (CLI) | payer OTHER ==
[2020-03-12 12:45] VITALS: BMI 26.6
== END | disposition home or self-care (01) ==
LOC: D.RAD 09:39 → D.RT 11:00
PROVIDERS: ATTEND Internal Medicine Pulmonary Disease
DX: J44.9 Chronic obstructive pulmonary disease, unspecified (principal)

== ENCOUNTER 2020-06-25 09:50 | Emergency (ER) | payer OTHER ==
[~2020-06-25] VITALS: Ht 172.7 cm; Wt 103.6 kg
[2020-06-25 10:00] VITALS: BP 117/92; Ht 172.7 cm; Wt 103.6 kg
[2020-06-25 10:44] LABS: BASOPHILS 0.5 % (0-2); EOSINOPHILS 5.6 % (0-7); HEMATOCRIT 45.7 % (42.0-54.0); HEMOGLOBIN 14.9 g/dL (13.5-17.5); IMMATURE GRANULOCYTES 0.7 % (0-5); LYMPHOCYTES 32.4 % (15-50); MCH 29.1 pg (26.0-34.0); MCHC 32.6 g/dL (31.0-37.0); MCV 89.3 fL (80.0-100.0); MONOCYTES 5.2 % (2-11); NEUTROPHILS 55.6 % (40-80); RBC 5.12 10x6/uL (4.20-6.10); WBC 5.5 10x3/uL (4.8-10.8)
[2020-06-25 10:46] LABS: PLATELET COUNT 197 10x3/uL (130-400)
[2020-06-25 12:24] LABS: CALC OSMOLALITY 279 mosm/kg (275-300); CARBON DIOXIDE 26.8 mmol/L (21.0-32.0); CHLORIDE - SERUM 89 mmol/L (98-107); CREATININE - SERUM 0.8 mg/dL (0.6-1.3); POTASSIUM - SERUM 4.4 mmol/L (3.5-5.1); SODIUM 124 mmol/L (136-145); UREA NITROGEN 8 mg/dL (7-18); eGFR NON AFRICAN AMERICAN > 90 mL/min (90-120)
[2020-06-25 12:25] LABS: ALKALINE PHOSPHATASE 263 U/L (30-120); ALT (SGPT) 28 U/L (10-68); BILIRUBIN - TOTAL 0.19 mg/dL (0.2-1.3); PROTEIN - SERUM 6.4 g/dL (6.4-8.2)
[2020-06-25 12:27] LABS: CALCIUM 8.3 mg/dL (8.5-10.1)
[2020-06-25 12:28] LABS: GLUCOSE 683 mg/dL (74-106)
== END 2020-06-25 14:33 | disposition home or self-care (01) ==
LOC: D.ER 09:50
PROVIDERS: Family Medicine
DX: J02.9 Acute pharyngitis, unspecified (principal); R13.10 Dysphagia, unspecified; I63.9 Cerebral infarction, unspecified; E11.9 Type 2 diabetes mellitus without complications; Z79.84 Long term (current) use of oral hypoglycemic drugs; I10 Essential (primary) hypertension; Z95.5 Presence of coronary angioplasty implant and graft; I25.2 Old myocardial infarction; I25.10 Atherosclerotic heart disease of native coronary artery without angina pectoris; M54.9 Dorsalgia, unspecified; J45.909 Unspecified asthma, uncomplicated

== ENCOUNTER 2021-03-17 05:53 | Emergency (ER) | payer MEDICARE ==
[~2021-03-17] VITALS: Ht 172.7 cm; Wt 95.9 kg
[~2021-03-17 05:53] MED LIST changes: +ISOSORBIDE MONO30 M1 PO; +NICODERM CQ1 EAC3 TRANSDERM
[2021-03-17 05:56] VITALS: Ht 172.7 cm; Wt 95.9 kg
[2021-03-17] MEDS ORDERED: LISINOPRIL20 MG PO (05:58)
[2021-03-17] MEDS ORDERED: THORAZINE50 MG PO (05:59)
[2021-03-17 06:44] LABS: BASOPHILS 0.8 % (0-2); EOSINOPHILS 6.6 % (0-7); HEMATOCRIT 43.4 % (42.0-54.0); HEMOGLOBIN 14.9 g/dL (13.5-17.5); LYMPHOCYTES 33.1 % (15-50); MCH 27.9 pg (26.0-34.0); MCHC 34.3 g/dL (31.0-37.0); MCV 81.3 fL (80.0-100.0); MEAN PLATELET VOLUME 9.1 fL (7.4-10.4); MONOCYTES 6.5 % (2-11); PLATELET COUNT 198 10x3/uL (130-400); RBC 5.33 10x6/uL (4.20-6.10); RDW 16.7 % (11.5-14.5); WBC 6.7 10x3/uL (4.8-10.8)
[2021-03-17 06:48] VITALS: BP 121/68
[2021-03-17 06:52] LABS: APTT 29.7 SECONDS (22.8-39.4); INR 0.95 (0.85-1.17); PROTIME 11.7 SECONDS (11.6-15.0)
[2021-03-17 07:31] LABS: ALBUMIN 3.4 g/dL (3.4-5.0); ALKALINE PHOSPHATASE 186 U/L (30-120); ALT (SGPT) 23 U/L (10-68); BILIRUBIN - TOTAL 0.29 mg/dL (0.2-1.3); CALC OSMOLALITY 291 mosm/kg (275-300); CALCIUM 8.5 mg/dL (8.5-10.1); CARBON DIOXIDE 25.6 mmol/L (21.0-32.0); CHLORIDE - SERUM 95 mmol/L (98-107); CREATININE - SERUM 0.9 mg/dL (0.6-1.3); POTASSIUM - SERUM 4.7 mmol/L (3.5-5.1); PROTEIN - SERUM 6.6 g/dL (6.4-8.2); SODIUM 132 mmol/L (136-145); UREA NITROGEN 12 mg/dL (7-18); eGFR NON AFRICAN AMERICAN > 90 mL/min (90-120)
[2021-03-17 07:32] LABS: CREATINE KINASE 71 UL (21-232)
[2021-03-17 07:34] LABS: THYROID STIMULATING HORMONE 1.22 uIU/mL (0.36-3.74)
[2021-03-17 07:38] LABS: CKMB 0.9 U/L (0.0-3.6); TROPONIN-I < 0.017 ng/mL (0.000-0.060)
[2021-03-17 07:42] LABS: GLUCOSE 592 mg/dL (74-106); MAGNESIUM - SERUM 1.7 mg/dL (1.8-2.4)
== END 2021-03-17 08:12 | disposition home or self-care (01) ==
LOC: D.ER 05:53
PROVIDERS: Emergency Medicine
DX: R55 Syncope and collapse (principal); R53.1 Weakness; Z86.73 Personal history of transient ischemic attack (TIA), and cerebral infarction without residual deficits; E11.65 Type 2 diabetes mellitus with hyperglycemia; G89.29 Other chronic pain; M54.5 Low back pain; I10 Essential (primary) hypertension; J44.9 Chronic obstructive pulmonary disease, unspecified; Z72.0 Tobacco use; Z79.84 Long term (current) use of oral hypoglycemic drugs

== ENCOUNTER 2021-03-19 09:32 | Observation (INO) | payer MEDICARE ==
[~2021-03-19] VITALS: Ht 172.7 cm; Wt 95.7 kg
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
[~2021-03-19 09:32] MED LIST changes: +LISINOPRIL20 MG PO; +THORAZINE50 MG PO
[2021-03-19 09:35] VITALS: Ht 172.7 cm; Wt 95.7 kg
[2021-03-19 10:02] LABS: BASOPHILS 1.3 % (0-2); EOSINOPHILS 6.4 % (0-7); HEMATOCRIT 44.9 % (42.0-54.0); LYMPHOCYTES 30.4 % (15-50); MCH 26.8 pg (26.0-34.0); MCHC 33.5 g/dL (31.0-37.0); MEAN PLATELET VOLUME 8.8 fL (7.4-10.4); MONOCYTES 7.2 % (2-11); NEUTROPHILS 54.7 % (40-80); PLATELET COUNT 209 10x3/uL (130-400); RBC 5.62 10x6/uL (4.20-6.10); RDW 16.6 % (11.5-14.5); WBC 7.4 10x3/uL (4.8-10.8)
[2021-03-19 10:27] LABS: APTT 28.4 SECONDS (22.8-39.4); INR 0.9 (0.85-1.17); PROTIME 11.2 SECONDS (11.6-15.0)
[2021-03-19 10:31] LABS: ALBUMIN 3.2 g/dL (3.4-5.0); ALKALINE PHOSPHATASE 165 U/L (30-120); BILIRUBIN - TOTAL 0.27 mg/dL (0.2-1.3); CARBON DIOXIDE 23.2 mmol/L (21.0-32.0); CHLORIDE - SERUM 97 mmol/L (98-107); CKMB 1.1 U/L (0.0-3.6); CREATINE KINASE 79 UL (21-232); CREATININE - SERUM 0.8 mg/dL (0.6-1.3); MAGNESIUM - SERUM 1.7 mg/dL (1.8-2.4); POTASSIUM - SERUM 4.2 mmol/L (3.5-5.1); SODIUM 132 mmol/L (136-145); THYROID STIMULATING HORMONE 1.97 uIU/mL (0.36-3.74); UREA NITROGEN 11 mg/dL (7-18); eGFR NON AFRICAN AMERICAN > 90 mL/min (90-120)
[2021-03-19 10:34] LABS: ALT (SGPT) 25 U/L (10-68); CALC OSMOLALITY 274 mosm/kg (275-300); GLUCOSE 292 mg/dL (74-106); PROTEIN - SERUM 8.2 g/dL (6.4-8.2); TROPONIN-I < 0.017 ng/mL (0.000-0.060)
[2021-03-19 13:18] LABS: CHOLESTEROL, TOTAL 312 mg/dL (0-200); HDL CHOLESTEROL 26 mg/dL (32-96)
[2021-03-19 13:22] LABS: TRIGLYCERIDE 1623 mg/dL (30-200)
[2021-03-19 13:40] LABS: CKMB 0.8 U/L (0.0-3.6); CREATINE KINASE 69 UL (21-232); TROPONIN-I < 0.017 ng/mL (0.000-0.060)
[2021-03-19 19:09] VITALS: BP 130/75
[2021-03-19 19:30] VITALS: BP 136/89
[2021-03-19 19:41] LABS: CREATINE KINASE 72 UL (21-232); TROPONIN-I < 0.017 ng/mL (0.000-0.060)
[2021-03-19 20:00] VITALS: BP 130/75
--- NOTE | 2021-03-19 21:33 | NUR ---
PATIENT CAUGHT SMOKING IN ROOM BY TRIAGE NURSE AND WAS REPORTED TO CHARGE NURSE. SECURITY WAS CALLED AND I WAS NOTIFIED THAT THE PATIENT REFUSED TO STOP SMOKING AND GIVE UP CIGARETTES AND SO HE HAD TO LEAVE FACILITY.
[2021-03-19 21:37] VITALS: BP 139/84
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
== END 2021-03-19 21:35 | disposition left against medical advice (07) ==
LOC: D.ER 09:32 → D.EDHOLD 12:15 → OBSVTIME 12:15 → D.EDHOLD 21:35
PROVIDERS: Family Medicine; ADMIT Emergency Medicine; ATTEND Emergency Medicine
DX: I63.342 Cerebral infarction due to thrombosis of left cerebellar artery (principal); R53.1 Weakness; E11.65 Type 2 diabetes mellitus with hyperglycemia; Z86.73 Personal history of transient ischemic attack (TIA), and cerebral infarction without residual deficits; I10 Essential (primary) hypertension; I25.10 Atherosclerotic heart disease of native coronary artery without angina pectoris; J44.9 Chronic obstructive pulmonary disease, unspecified; F32.9 Major depressive disorder, single episode, unspecified; Z79.84 Long term (current) use of oral hypoglycemic drugs; R20.2 Paresthesia of skin; E11.40 Type 2 diabetes mellitus with diabetic neuropathy, unspecified